=== PATIENT | male | born 1945 | race Caucasian/White ===

== ENCOUNTER 2021-07-25 11:18 | Inpatient (IN) | payer OTHER ==
[~2021-07-25] VITALS: Ht 172.7 cm; Wt 107.4 kg
[2021-07-25] MEDS ORDERED: ONDANSETRON 4 MG (ZOFRAN) ORAL DISSOLVE TAB PO PRN (12:30)
[2021-07-25] MEDS ORDERED: guaiFENesin/CODEINE (ROBITUSSIN AC) 10ML UDC PO PRN (12:30)
[2021-07-25] MEDS ORDERED: MELATONIN 3 MG TABLET PO PRN (12:30)
[2021-07-25] MEDS ORDERED: ACETAMINOPHEN 500 MG TAB (TYLENOL) PO PRN (12:30)
[2021-07-25] MEDS ORDERED: LOPERAMIDE 2 MG (IMODIUM) TABLET PO PRN (12:30)
[2021-07-25] MEDS ORDERED: BISACODYL 10 MG SUPP (DULCOLAX) PR PRN (12:30)
[2021-07-25] MEDS ORDERED: diphenhydrAMINE 25 MG TAB (BENADRYL) PO PRN (12:30)
[2021-07-25] MEDS ORDERED: DOCUSATE SODIUM 100 MG (COLACE) CAP PO PRN (12:30)
[2021-07-25] MEDS ORDERED: LACTULOSE SYRUP 10GM/15ML (ENULOSE) 30ML UDC PO PRN (12:30)
[2021-07-25] MEDS ORDERED: CALCIUM CARBONATE 500 MG (TUMS) TAB.CHEW PO PRN (12:30)
[2021-07-25] MEDS ORDERED: FLEET ENEMA ADULT 1 EA BTL PR PRN (12:30)
[2021-07-25] MEDS ORDERED: ALPRAZolam 0.25 MG (XANAX) TAB PO PRN (12:30)
[2021-07-25] MEDS ORDERED: PHEN30TA45 PO (13:21)
[2021-07-25] MEDS ORDERED: METF-478 PO (13:21)
[2021-07-25] MEDS ORDERED: MELA3TAB39 PO (13:21)
[2021-07-25] MEDS ORDERED: PHEN100C11 PO (13:21)
[2021-07-25] MEDS ORDERED: LATA2.5D19 OU (13:21)
[2021-07-25] MEDS ORDERED: FURO20TA4 PO ×2 (13:21)
[2021-07-25] MEDS ORDERED: BRIM5DRO2 OS (13:21)
[2021-07-25] MEDS ORDERED: LEVO100T PO (13:21)
[2021-07-25] MEDS ORDERED: RT-ALBUINH INH (13:21)
[2021-07-25] MEDS ORDERED: TMSL.4C PO (13:21)
[2021-07-25] MEDS ORDERED: BENZ100C18 PO (13:21)
[2021-07-25] MEDS ORDERED: DULA1.5P2 SQ (13:21)
[2021-07-25] MEDS ORDERED: DIAZ5TAB49 PO (13:21)
[2021-07-25] MEDS ORDERED: LEVE250T5 PO (13:21)
[2021-07-25] MEDS ORDERED: DOCU100C37 PO (13:21)
[2021-07-25] MEDS ORDERED: LACT1WAF PO (13:21)
[2021-07-25] MEDS ORDERED: DEXA6TAB PO (13:21)
[2021-07-25] MEDS ORDERED: ATOR80TA76 PO (13:21)
[2021-07-25] MEDS ORDERED: LISI20TA26 PO (13:21)
[2021-07-25] MEDS ORDERED: CALC-987 PO (13:21)
[2021-07-25] MEDS ORDERED: INSU100V6 SQ (13:21)
[2021-07-25] MEDS ORDERED: ASPI-1238 PO (13:21)
[2021-07-25] MEDS ORDERED: UBID10CA8 PO (13:21)
[2021-07-25] MEDS ORDERED: INSU100V SQ (13:21)
[2021-07-25] MEDS ORDERED: AMLO-251 PO (13:21)
[2021-07-25] MEDS ORDERED: BENZ200C51 PO (13:26)
[2021-07-25] MEDS ORDERED: FAMO20TA5 PO (13:26)
[2021-07-25] MEDS ORDERED: ACETAMINOPHEN 325 MG TABLET PO PRN (13:30)
[2021-07-25] MEDS ORDERED: DIAZEPAM 5 MG (VALIUM) TABLET PO PRN (14:00)
[2021-07-25] MEDS ORDERED: FUROSEMIDE 20 MG (LASIX) TAB PO PRN (14:00)
--- NOTE | 2021-07-25 14:14 | Progress Note ---
BELIA RIVERA 07/25/21 1414: Progress Note Inpatient Rehab Subjective CC: SOB after positive Covid test HPI: On 07/16/21 a 75yo M presented to [facility] ED with a week long history of progressive weakness with cough, subjective fever, SOB, and a fall with a recent positive Covid test and he was vaccinated with two doses prior to his infection. CXR on 07/16 revealed Bibasilar partial atelectasis with no infiltrates, effusions, or pneumothorax. He was on 2L of oxygen to maintain his O2 saturation above 90% and was given Remdesivir, dexamethasone and was admitted to the COVID unit. On 07/23 he was off Covid isolation and throughout his time he reported improvements in his symptoms. On 07/25 he still reports SOB especially on exertion that is much improved, some mucus production that has also improved and he had some Nausea last night. He currently can ambulate with a walker. He lives in a one floor house with three steps, he has a CPAP machine at home in [place] and can get help from his . He has no oxygen at home, and goes to the [facility] for health concerns. PMH: Anxiety, CAD, skin cancer, senile cataract of left eye, COPD, depression, DM, HTN, hyperlipidemia, hypothyrodism, CURT, PVD, stroke, seizure disorder, TIA on left side of body PSH: cataract extraction, heart catheterization, Iridotomy, retinal laser procedure, drain peritonsillar abscess, Cholecystectomy, tonsillectomy Allergies: Fentanyl (hypotension) and Fluoxetine (Hallucination), no food allergies, unknown environmental allergies to patient Meds: see chart SH: Drinks one pot of coffee a day, no ETOH except for on occasion socially, no drug use, has no smoked in 30 years and use to smoke 2 to 3 packs per day for 24 to 25 years. FH: Mother=Thyroid disease, heart disease, DM, HTN, high cholesterol. . Father= Heart disease, high cholesterol, HTN Children= all boys have DM Brother=DM Brother= possible DM Sister= unknown cause of , possibly from smoking related complications ROS: No CP, vomiting. Reports on and off constipation and diarrhea depending on what he eats. Objective General: alert, compliant, good historian. Lungs: Decreased lung sounds, no wheezing or accessory muscle use Psych: Doing very well, looking forward to working with PT and OT so he can go back home. Assessment: Post COVID syndrome HTN Plan: OT and PT Monitor BP and blood sugars KEREN GARCIA DO 07/26/21 0536: Supervisory-Addendum Brief Verification & Attestation Participated in pt care: history, MDM, physical Personally performed: exam, history, MDM, supervision of care Care discussed with: Medical Student Procedures: n/a Results interpretation: Verified all documentation Verification and Attestation of Medical Student E/M Service A medical student performed and documented this service in my presence. I reviewed and verified all information documented by the medical student and made modifications to such information, when appropriate. I personally performed the physical exam and medical decision making. Keren Garcia, Jul 26, 2021,05:36 BELIA RIVERA Jul 25, 2021 14:14 KEREN GARCIA DO Jul 26, 2021 05:36
[2021-07-25] MEDS ORDERED: BENZONATATE 100 MG (TESSALON) CAPSULE PO PRN (14:15)
--- NOTE | 2021-07-25 14:24 | Physical Therapy Evaluation ---
PT Evaluation-General Medical Diagnosis Admission Date Jul 25, 2021 at 12:50 Medical Diagnosis: post covid debility Onset Date: Jul 16, 2021 Therapy Diagnosis Therapy Diagnosis: impaired mobility, strength, endurance, balance Precautions Precautions/Isolations: Fall Prevention, Standard Precautions Referral Physician: Keren Henry DO Reason for Referral: Evaluation/Treatment Medical History Additional Medical History CAD, COPD, CVA, DM, Hypothroidism, Macular Degenertion Reviewed History: Yes Social History Home: Single Level Current Living Status: Spouse Entry Into Home: Stairs With Railing PT Steps Into Home: 3 Prior Prior Level of Function SCALE: Activities may be completed with or without assistive devices. 9-Swtjfkjvcp-uopeiws completes the activity by him/herself with no assistance from a helper. 5-Set-up or Clean-up Assistance-helper sets up or cleans up; patient completes activity. [place] assists only prior to or following the activity. 4-Supervision or Touching Assistance-helper provides verbal cues and/or touching/steadying and/or contact guard assistance as patient completes activity. Assistance may be provided throughout the activity or intermittently. 3-Partial/Moderate Assistance-helper does LESS THAN HALF the effort. [place] lifts, holds or supports trunk or limbs, but provides less than half the effort. 2-Substantial/Maximal Assistance-helper does MORE THAN HALF the effort. [place] lifts or holds trunk or limbs and provides more than half the effort. 9-Ropkkrpzm-twveos does ALL the effort. Patient does none of the effort to complete the activity. Or, the assistance of 2 or more helpers is required for the patient to complete the activity. If activity was not attempted, code reason: 7-Patient Refused. 9-Not Applicable-not attempted and the patient did not perform the activity before the current illness, exacerbation or injury. 10-Not Attempted due to Environmental Limitations-(lack of equipment, weather restraints, etc.). 88-Not Attempted due to Medical Conditions or Safety Concerns. Bed Mobility: 6 Transfers (B,C,W/C): 6 Gait: 6 Stairs: 3 Patient uses a 4 wheeled walker at home, he ambulates independently with it but he states he falls at home fairly often PT Evaluation-Current Subjective Patient in recliner pre tx, agrees to PT, has no complaints of pain. Will be co-treating with OT for part of tx due to poor patient mobility, strength, endurance, balance, coordinate UE and LE during activity, safety and reduce risk of falls. Pt/Family Goals to be independent at home Objective Patient Orientation: Person, Place, Situation ROM/Strength ROM Lower Extremities WNL Strength Lower Extremities LLE (hip flexion 3-/5, knee extension 3+/5, knee flexion 3/5, dorsiflexion 3+/5), RLE (hip flexion 4/5, knee extension 5/5, knee flexion 4/5, dorsiflexion 4/5) Sensory Vision: Blind Totally (right eye) Hearing: Functional Sensation Right Lower Extremit: Intact Sensation Left Lower Extremity: Intact Transfers Roll Left & Right (QC): 6 Sit to Lying (QC): 4 Lying to Sitting/Side of Bed(Q: 4 Sit to Stand (QC): 3 Chair/Zhr-zr-Nawbl Xfer(QC): 4 Toilet Transfer (QC): 3 Car Transfer (QC): 4 Patient performs bed mobility with independence, supine <-> sit with SBA, sit <- > stand min assist, transfers CGA, car transfer CGA. Patient needs cues for hand placement and positioning. Gait Does the Patient Walk?: Yes Mode of Locomotion: Walk Anticipated Mode of Locomotion: Walk Walk 10 feet (QC): 4 Walk 50 ft with 2 Turns(QC): 4 Walk 150 ft (QC): 88 Walking 10ft/uneven surface-QC: 4 Distance: 100', 50' Gait Assistive Device: FWW Comments/Gait Description Patient can ambulate 100' with a rolling walker with CGA (including 50' with at least 2 turns of 90 degrees and 10' over an uneven surface). Patient is unsteady, needs steadying assist, left knee maurice when fatigued. Wheelchair Training Does the Pt Use a Wheelchair?: Yes Distance: 100' Wheel 50 ft with 2 turns (QC): 4 Wheel 150 ft (QC): 88 Type of Wheelchair: Manual SBA Stairs #of Steps: 1 1 Step (curb) (QC): 4 4 Steps (QC): 88 12 Steps (QC): 88 Walking Assistive Device: Walker Patient can go up and down 1 step using a rolling walker with CGA, cues for foot placement and safety. Balance Sitting Static: Good Sitting Dynamic: Fair Standing Static: Poor Standing Dynamic: Poor Picking up an Object (QC): 88 Treatment Bathing and dressing. PT performed bed mobility and transfers, ambulation, stair training, standing and positioning during bathing and dressing, OT performed bathing and dressing, UE positioning and safety during activity. Assessment/Needs Patient in recliner post tx with nurse call, phone, tray, all needs met, set up with lunch. Patient has impaired mobility, strength, endurance, balance. Patient is CGA with transfers and ambulation but needs close guarding due to unsteadiness and left knee buckling with fatigue. Rehab Potential: Fair PT Short Term Goals Short Term Goals Time Frame: Aug 01, 2021 Roll Left & Right: 6 Sit to lyin Lying to sitting on side of be: 5 Sit to stand: 4 Chair/ltp-je-engvs transfer: 4 Walk 10 feet: 4 Walk 50 feet with two turns: 4 Walk 150 feet: 4 PT Half-Way Goals Panel Machine Setter Goals PT Half-Way Goals Time Frame: Aug 15, 2021 Roll Left & Right (QC): 6 Sit to Lying (QC): 6 Lying-Sitting on Side/Bed(QC): 6 Sit to Stand (QC): 5 Chair/Tqk-eh-Fnwwo Xfer(QC): 5 Toilet Transfer (QC): 5 Car Transfer (QC): 5 Does the Patient Walk: Yes Walk 10 feet (QC): 5 Walk 50ft with 2 Turns (QC): 5 Walk 150 ft (QC): 5 Walking 10ft on Uneven Surface: 4 1 Step (curb) (QC): 4 4 Steps (QC): 4 12 Steps (QC): 88 Picking up an Object (QC): 4 Wheel 50 feet with 2 turns (QC: 9 Wheel 150 feet: 9 PT Plan Problem List Problem List: Activity Tolerance, Functional Strength, Safety, Balance, Gait, Transfer, Bed Mobility, ROM Treatment/Plan Treatment Plan: Continue Plan of Care Treatment Plan: Bed Mobility, Education, Functional Activity Adriana, Functional Strength, Group Therapy, Gait, Safety, Therapeutic Exercise, Transfers Treatment Duration: Aug 15, 2021 Frequency: At least 5 of 7 days/Wk (IRF) Estimated Hrs Per Day: 1.5 hours per day Patient and/or Family Agrees t: Yes Safety Risks/Education Patient Education: Gait Training, Transfer Techniques, Steps, Correct Posit ioning, Safety Issues Teaching Recipient: Patient Teaching Methods: Demonstration, Discussion Response to Teaching: Reinforcement Needed Discharge Recommendations Plan Patient will perform bed mobility and transfer training, balance and endurance training, functional strengthening, stair training, gait training, and education, to improve functional mobility and independence at home. Therapy Discharge Recommendati: Home & Family, Post Acute PT Time/GCodes Time In: 1250 Time Out: 1430 Total Billed Treatment Time: 90 Total Billed Treatment 1 visit EVM 10' FA 80' PT eval from [id number], OT eval from [id number], co-treat from [id number] [facility]NIGHT PT Jul 25, 2021 14:24
--- NOTE | 2021-07-25 14:28 | Occupational Therapy Eval ---
OT Evaluation-General/PLF Medical Diagnosis Admission Date Jul 25, 2021 at 12:50 Medical Diagnosis: pneumonia due to Covid 19 Onset Date: Jul 16, 2021 Therapy Diagnosis Therapy Diagnosis: Impaired adls, balance, safety, endurance, strength, vision Precautions Precautions/Isolations: Fall Prevention, Standard Precautions Referral Physician: isac Referral Reason: Evaluation/Treatment Medical History Pertinent Medical History: CAD, COPD, CVA, DM, Hypothroidism, Macular Degenertion Additional Medical History CVA 12/2014, CVA 06/2021, seizure disorder, cataracts, cancer Current History Pt direct admit from [facility] with weakness and pneumonia secondary to covid 19. Pt reports recent stroke just following Covid 19 diagnosis. Per patient and , he receives assist with all adls and requires assistance with tub transfers. reports multiple falls where legs "give out" and requires assistance from neighbors or family to get him off the floor. Pt was using a 4ww prior to admission. He states that he only leaves his home when he has a doctors appointment and will then use a w/c in the community. Pt currently presents with R facial droop, Residual L sided weakness and is blind in R eye. Reviewed History: Yes Social History Home: Single Level Current Living Status: Spouse Entry Into Home: Stairs With Railing Steps Into Home: 3 ADL-Prior Level of Function SCALE: Activities may be completed with or without assistive devices. 9-Fsvhsxlizd-dbulosb completes the activity by him/herself with no assistance from a helper. 5-Set-up or Clean-up Assistance-helper sets up or cleans up; patient completes activity. [place] assists only prior to or following the activity. 4-Supervision or Touching Assistance-helper provides verbal cues and/or touching/steadying and/or contact guard assistance as patient completes activity. Assistance may be provided throughout the activity or intermittently. 3-Partial/Moderate Assistance-helper does LESS THAN HALF the effort. [place] lifts, holds or supports trunk or limbs, but provides less than half the effort. 2-Substantial/Maximal Assistance-helper does MORE THAN HALF the effort. [place] lifts or holds trunk or limbs and provides more than half the effort. 8-Eklwhxipc-ifeizq does ALL the effort. Patient does none of the effort to complete the activity. Or, the assistance of 2 or more helpers is required for the patient to complete the activity. If activity was not attempted, code reason: 7-Patient Refused. 9-Not Applicable-not attempted and the patient did not perform the activity before the current illness, exacerbation or injury. 10-Not Attempted due to Environmental Limitations-(lack of equipment, weather restraints, etc.). 88-Not Attempted due to Medical Conditions or Safety Concerns. Self Care: Needed Some Help Functional Cognition: Needed Some Help DME/Equipment: Bath Bench, Grab Bars, Shower Hose Injection Molding Machine Offbearer, Tub/Shower Drive Self: No OT Current Status Subjective Pt reports wanting to get stronger to reduce burden of care on . Appearance Pt left sitting in chair, all needs within reach. Mental Status/Objective Patient Orientation: Person, Time, Situation Attachments: IV Current Glasses/Contacts: No Hearing Aids: No Hand Dominance: Right Upper Extremity ROM Dex shoulder: 3/4 AROM-baseline Elbow-distally WFL Upper Extremity Coordination Mild incoordination noted, L>R Upper Extremity Strength Residual LUE weakness: 3+/5 RUE: 4/5 throughout Fair manufacturing cost estimator. ADL-Treatment Eating (QC): 5 Oral Hygiene (QC): 3 Shower/Bathe Self (QC): 3 Upper Body Dressing (QC): 10 Lower Body Dressing (QC): 3 On/Off Footwear (QC): 3 Toileting Hygiene (QC): 3 Will be co-treating with PT for part of tx due to poor patient mobility, strength, endurance, balance, safety, coordination, and high fall risk. PT focusing on gait, ambulation, functional transfers, safety, balance, and LE strengthening as OT focused on ADLs, balance, UE coordination, safety, functional transfers, and endurance. Pt is unsteady on feet and can be retropulsive with initial standing. See PT note regarding distance and level of assist for gait. Shower performed; majority completed in sitting. Pt stood only briefly to wash gael area/buttocks with Min a for balance. 1-2 UE support required at all times when standing. Pt unable to sustain standing balance for long periods of time and demonstrates unpredictable knee buckling, especially with fatigue. Cues needed to initiate use of soap and to wash ~20% of body parts as pt easily distracted with conversation. Assist required to reach feet and min a for thoroughness when washing buttocks. Pt sat edge of bench to dress. No clothing currently present, thus new gown donned. reports she will bring in clothing for next session. With extra time/effort, pt was able to thread BLE's into brief with use of cross over method. Min-mod a for balance as he stood to manage brief up to waist with zero UE support. Education/cue to alternate one hand on walker while other manages clothing. CGA-min a to maintain figure 4 position as pt donned dex socks. Pt can be impulsive at times and requires cues for safety. Treatment ideas include instruction on Adaptive Equipment, compensatory s trategies, promoting increased balance, endurance, standing tolerance, UE strength, coordination, and safety with tub transfers. Other Treatments Pt performed multiple functional transfers throughout session with cga-min a. Pt can be unsteady, Retropulsive with initial standing and exhibit unpredictable knee buckling, especially as fatigue worsens. Education OT Patient Education: Correct positioning, Energy conservation, Instructions to caregiver, Modified ADL techniques, Progress toward Goal/Update tx plan, Purpose of tx/functional activities, Reviewed precautions, Rehab process, Safety issues, Transfer techniques, W/C management Teaching Recipient: Patient Teaching Methods: Demonstration, Discussion Response to Teaching: Verbalize Understanding, Reinforcement Needed OT Short Term Goals Short Term Goals Time Frame: Aug 01, 2021 Eatin Oral hygiene: 5 Toileting hygiene: 4 (CGA) Shower/bathe self: 3 Upper body dressin Lower body dressin (CGA) Putting on/taking off footwear: 4 OT Shelter Goals Shelter Goals Time Frame: Aug 11, 2021 Eating (QC): 6 Oral Hygiene (QC): 6 Toileting Hygiene (QC): 4 Shower/Bathe Self (QC): 4 Upper Body Dressing (QC): 4 Lower Body Dressing (QC): 4 On/Off Footwear (QC): 4 1=Demonstrate adherence to instructed precautions during ADL tasks. 2=Patient will verbalize/demonstrate understanding of assistive devices/modifications for ADL. 3=Patient will improve strength/tolerance for activity to enable patient to perform ADL's. OT Education/Plan Problem List/Assessment Assessment: Decreased Activ Tolerance, Decreased Safety Aware, Decreased UE Strength, Impaired Coordination, Impaired Funct Balance, Impaired Self-Care Skills, Restricted Funct UE ROM Discharge Recommendations Plan/Recommendations: Continue POC Therapy Discharge Recommendati: Home & Family, Post Acute OT Comment continue to assess for DME/AE Treatment Plan/Plan of Care Treatment,Training & Education: Yes Patient would benefit from OT for education, treatment and training to promote independence in ADL's, mobility, safety and/or upper extremity function for ADL's. Plan of Care: ADL Retraining, Caregiver Training, Functional Mobility, Group Exercise/Act as Ind, UE Funct Exercise/Act, UE Neuromus Re-Ed/Coord, W/C Management Training Treatment Duration: Aug 11, 2021 Frequency: At least 5 of 7 days/Wk (IRF) Estimated Hrs Per Day: 1.5 hours per day Agreement: Yes Rehab Potential: Fair Time/GCodes Start Time: 13:00 Stop Time: 14:30 Total Time Billed (hr/min): 90 Billed Treatment Time 1 visit EVM 10 min ADL x3 (50 min) FA x 2 (30 min) PT eval from [id number], OT eval from [id number], co-treat from [id number] Arcelia Deleon OT Jul 25, 2021 14:28
[2021-07-25] MEDS: PHENYTOIN 100 MG (DILANTIN) CAP PO SCH ×2 (14:34→20:39)
[2021-07-25] MEDS ORDERED: [UNRECOGNIZED DRUG - REMARK] SQ SCH (15:00)
[2021-07-25] MEDS ORDERED: FLU QUADRIvalent (3YOA+) 60 mcg/0.5 ml 2021-22(AFLURIA) IM ONE (15:00)
[2021-07-25] MEDS: RT-ALBUTEROL SULF 2.5 MG/3 ML PRE-MIX VIAL INH SCH ×2 (16:03→21:15)
[2021-07-25] MEDS: inSUlin ASPART (NovoLOG) 1 UNIT/0.01 ML (CHARGE PER UNIT) SC SCH ×2 (16:44→20:40)
[2021-07-25] MEDS: ENOXAPARIN 40 MG/0.4 ML (LOVENOX) SYR SC SCH (16:44)
[2021-07-25] MEDS: CALCIUM CARB + VIT D 600 MG (CALCARB + D) TAB PO SCH (16:51)
[2021-07-25 20:00] VITALS: BP 163/83
--- NOTE | 2021-07-25 20:02 | PM&R Post Admission Assessment ---
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 He was diagnosed with Covid even after he received both Covid vaccine injections. He does not use oxygen at home and currently he has been weaned off. He is to be completing his Decadron. Family thinks his right facial droop is new and will try to review his records to evalu ate that. 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 Currently he was noted to be weak and debilitated but able to perform the assessments per PT. Subjective CC: SOB after positive Covid test HPI: On 07/16/21 a 75yo M presented to [facility] ED with a week long history of progressive weakness with cough, subjective fever, SOB, and a fall with a recent positive Covid test and he was vaccinated with two doses prior to his infection. CXR on 07/16 revealed Bibasilar partial atelectasis with no infiltrates, effusions, or pneumothorax. He was on 2L of oxygen to maintain his O2 saturation above 90% and was given Remdesivir, dexamethasone and was admitted to the COVID unit. On 07/23 he was off Covid isolation and throughout his time he reported improvements in his symptoms. On 07/25 he still reports SOB especially on exertion that is much improved, some mucus production that has also improved and he had some Nausea last night. He currently can ambulate with a walker. He lives in a one floor house with three steps, he has a CPAP machine at home in [place] and can get help from his . He has no oxygen at home, and goes to the [facility] for [facility] concerns. PMH: Anxiety, CAD, skin cancer, senile cataract of left eye, COPD, depression, DM, HTN, hyperlipidemia, hypothyrodism, CURT, PVD, stroke, seizure disorder, TIA on left side of body PSH: cataract extraction, heart catheterization, Iridotomy, retinal laser procedure, drain peritonsillar abscess, Cholecystectomy, tonsillectomy Allergies: Fentanyl (hypotension) and Fluoxetine (Hallucination), no food allergies, unknown environmental allergies to patient Meds: see chart SH: Drinks one pot of coffee a day, no ETOH except for on occasion socially, no drug use, has no smoked in 30 years and use to smoke 2 to 3 packs per day for 24 to 25 years. FH: Mother=Thyroid disease, heart disease, DM, HTN, high cholesterol. . Father= Heart disease, high cholesterol, HTN Children= all boys have DM Brother=DM Brother= possible DM Sister= unknown cause of , possibly from smoking related complications ROS: No CP, vomiting. Reports on and off constipation and diarrhea depending on what he eats. Objective General: alert, compliant, good historian. Lungs: Decreased lung sounds, no wheezing or accessory muscle use Psych: Doing very well, looking forward to working with PT and OT so he can go back home. Assessment: Post COVID syndrome HTN Plan: OT and PT Monitor BP and blood sugars BELIA RIVERA Past Xpjsqpu-Mwnqth-Fogahm Hx Past Med/Social Hx: Reviewed Nursing Past Med/Soc Hx, Reviewed and Corrections made Patient Social History Marrital Status: Employed/Student: retired Alcohol Use: Denies Use Smoking Status: Former Smoker Past Medical History Cardiac: Chronic Edema/Swelling, High Cholesterol, Hypertension Neurological: Seizure Disorder, Stroke Genitourinary: Benign Prostatic Hyperpl, Renal Failure Gastrointestinal: Gastroesophageal Reflux Musculoskeletal: Arthritis, Chronic Back Pain Endocrine: Diabetes, Insulin dep Psychosocial: Anxiety Family History Reviewed Nursing Family Hx Prior Level of Function Bed Mobility: 6 Transfers: 6 Gait: 6 Stairs: 3 Self Care: Needed Some Help Functional Cognition: Needed Some Help Drive Self: No Current Level of Fuctioning Roll Left to Right: 6 Sit to Lyin Lying to Sitting/Side of Bed: 4 Sit to Stand: 3 Chair/Kza-yd-Gdoqe Xfer: 4 Car Transfer: 4 Does the Patient Walk: Yes Mode of Locomotion: Walk Anticipated Mode of Locomotion: Walk Walk 10 feet: 4 Walk 50 ft with 2 Turns: 4 Walk 150 ft: 88 Walking 10ft on uneven surface: 4 Gait Assistive Device: FWW Does the Pt Use a Wheelchair: Yes Wheelchair Distance: 100' Wheel 50 ft with 2 turns: 4 Wheel 150 ft: 88 Type of Wheelchair: Manual #of Steps: 1 1 Step (curb): 4 4 Steps: 88 Walking Assistive Device: Walker 12 Steps: 88 Picking up an Object: 88 Eatin Oral Hygiene: 3 Shower/Bathe Self: 3 Upper Body Dressin Lower Body Dressin On/Off Footwear: 3 Toileting Hygiene: 3 PM&R Allergy/Meds/Data Review Allergies Coded Allergies: fentanyl (Verified Allergy, Unknown, 07/25/21) fluoxetine (Verified Allergy, Unknown, 07/25/21) Home Medications Scheduled Albuterol Sulfate (Ventolin Hfa), 2 PUFF INH Q6H, (Reported) Amlodipine Besylate (Amlodipine Besylate), 5 MG PO BID, (Reported) Aspirin (Aspirin EC), 81 MG PO DAILY, (Reported) Atorvastatin Calcium (Atorvastatin Calcium), 80 MG PO DAILY, (Reported) Brimonidine Tartrate (Alphagan P), 1 DROP OS BID, (Reported) Calcium Carbonate/Vitamin D3 (Calcium 500-Vit D3 600 Tablet), 1 EACH PO BID, (Reported) Dexamethasone (Dexamethasone), 6 MG PO DAILY, (Reported) Docusate Sodium (Docusate Sodium), 100 MG PO BID, (Reported) Dulaglutide (Trulicity), 1.5 MG SQ WEEK, (Reported) Famotidine (Famotidine), 20 MG PO BID, (Reported) Furosemide (Furosemide), 20 MG PO DAILY, (Reported) Insulin Glargine,Hum.rec.anlog (Lantus), 20 UNIT SQ HS, (Reported) Insulin Lispro (Humalog), UNIT SQ TIDWM, (Reported) Lactobacillus Acidophilus (Acidophilus Lactobacillus), 2 EA PO HS, (Reported) Latanoprost (Xalatan), 1 DROPS OU HS, (Reported) Levetiracetam (Levetiracetam), 250 MG PO BID, (Reported) Levothyroxine Sodium (Synthroid), 100 MCG PO DAILY, (Reported) Lisinopril (Lisinopril), 20 MG PO DAILY, (Reported) Melatonin (Melatonin), 6 MG PO HS, (Reported) Metformin HCl (Metformin HCl ER), 1,000 MG PO BID, (Reported) Phenobarbital (Phenobarbital), 60 MG PO HS, (Reported) Phenytoin Sodium Extended (Phenytoin Sodium Extended), 200 MG PO TID, (Reported) Tamsulosin HCl (Flomax), 0.4 MG PO HS, (Reported) Ubidecarenone (Coenzyme Q10), 10 MG PO DAILY, (Reported) Scheduled PRN Benzonatate (Benzonatate), 200 MG PO TID PRN for COUGH, (Reported) Diazepam (Diazepam), 5 MG PO BID PRN for ANXIETY, (Reported) Furosemide (Furosemide), 20 MG PO 1500 PRN for GAIN >3LB PER DAY, (Reported) Discontinued Medications Benzonatate (Tessalon Perles), 200 MG PO TID PRN for COUGH, (Reported) Discontinued Reason: Prescription changed Current Medications Current Medications Reviewed Laboratory Data Laboratory Tests 07/25/21 15:51: Glucometer 259H Review of Systems Constitutional: see HPI, malaise, weakness EENTM: no symptoms reported Respiratory: dyspnea on exertion Cardiovascular: no symptoms reported Gastrointestinal: no symptoms reported Genitourinary: no symptoms reported Musculoskeletal: back pain, joint pain Skin: no symptoms reported Psychiatric/Neurological: Anxiety, Depressed All Other Systems Reviewed Negative Unless Noted: Yes Physical Exam Physical Exam Vital Signs Vital Signs - First Documented 07/25/21 14:51 O2 Delivery Room Air Capillary Refill : Height, Weight, BMI Height: '" Weight: lbs. oz. kg; 35.10 BMI Method: General Appearance: No Apparent Distress, WD/WN, Chronically ill, Obese Eyes: Bilateral Eye Normal Inspection, Bilateral Eye PERRL HEENT: PERRL/EOMI, Normal ENT Inspection, Pharynx Normal Neck: Full Range of Motion, Normal Inspection, Non Tender, Supple, Carotid Bruit Respiratory: Chest Non Tender, Normal Breath Sounds, No Accessory Muscle Use, No Respiratory Distress, Decreased Breath Sounds Cardiovascular: Regular Rate, Rhythm, No Edema, No Gallop, No JVD, No Murmur, Normal Peripheral Pulses Gastrointestinal: Normal Bowel Sounds, No Organomegaly, No Pulsatile Mass, Non Tender, Soft Back: Normal Inspection, No CVA Tenderness, No Vertebral Tenderness Extremity: Normal Capillary Refill, Normal Inspection, Normal Range of Motion, Non Tender, No Calf Tenderness, No Pedal Edema Neurologic/Psychiatric: Alert, Oriented x3, management engineer II-XII Norm as Tested, Depressed Affect, Motor Weakness (Chronic left-sided hemiparesis 3/5) Skin: Normal Color, Warm/Dry Lymphatic: No Adenopathy PM&R Medical Assessment & Plan REHAB/MEDICAL ASSESSMENT AND PLAN: REHAB IMPAIRMENT GROUP: Post Covid syndrome ETIOLOGIC DIAGNOSIS: Post Covid syndrome The comorbidities that impact the patients function and/or functional outcome by: Chronic left-sided hemiparesis, severe debility, obesity, diabetes REHAB PLAN: The patient is being admitted to our comprehensive inpatient rehabilitation facility and can tolerate the intensity of service consisting of at least: 180 minutes of therapy a day, 5 out of 7 days a week Rehab treatment will consist of: PT and OT will focus on regaining function with ambulatory devices in order to increase stamina and help increase independence in ADLs in order to regain enough function to return home The patient/family has a good understanding of our discharge process and will benefit from an interdisciplinary inpatient rehabilitation program. The patient has potential to make improvement and is in need of at least two of the following multidisciplinary therapies including but not limited to physical, occupational, speech, and prosthetics and orthotics. Additionally the patient will need services from respiratory, nutritional services, wound care, psychology, etc. (Customize this to each patient). Given the patients complex condition and risk of further medical complications, rehabilitation services cannot be safely or effectively provided at a lower level of care such as a halfway facility. BARRIERS TO DISCHARGE: Chronic left sided hemiparesis combined with new debility ESTIMATED LOS: 14 days DISPOSITION: Home RELEVANT CHANGES SINCE PREADMISSION SCREENING: I have compared the patients medical and functional status at the time of the preadmission screening and there are: No changes PROGNOSIS: Good REHABILITATION GOALS: 1. PT and OT will focus on regaining function with ambulatory devices in order to increase stamina and help increase independence in ADLs in order to regain enough function to return home All the above goals were reviewed with the patient and he/she is in agreement. By signing this document, I acknowledge that I have personally performed a full physical examination on this patient within 24 hours of admission to this inpatient rehabilitation facility and have determined the patient to be able to tolerate the above course of treatment at an intensive level for a reasonable period of time. I will be completing a detailed individualized Plan of Care for this patient by day #4 of the patients stay based upon the Preadmission Screen, the Post-Admission Evaluation, and the therapy evaluations. Admission Dx/Comorbidities: (1) Post-COVID syndrome ICD Codes: B94.8 - Sequelae of other specified infectious and parasitic diseases (2) Hypertension ICD Codes: I10 - Essential (primary) hypertension (3) BPH (benign prostatic hyperplasia) ICD Codes: N40.0 - Benign prostatic hyperplasia without lower urinary tract symptoms (4) Diabetes ICD Codes: E11.9 - Type 2 diabetes mellitus without complications (5) History of stroke ICD Codes: Z86.73 - Personal history of transient ischemic attack (TIA), and cerebral infarction without residual deficits Assessment/Plan Assessment and Plan Assess & Plan/Chief Complaint Assessment: Post Covid syndrome Hypoxia Obesity Diabetes Hypertension Hyperlipidemia Prior stroke with left-sided hemiparesis Plan: Supportive care Oxygen supplementation Aggressive therapy HANNA GARCIA DO Jul 25, 2021 20:02
[2021-07-25] MEDS: FAMOTIDINE 20 MG (PEPCID) TABLET PO SCH (20:36)
[2021-07-25] MEDS: PHENobarbital 64.8 MG (1 GRAIN) TAb PO SCH (20:37)
[2021-07-25] MEDS: SENNA W/DOCUSATE (SENOKOT S) TABLET PO SCH (20:37)
[2021-07-25] MEDS: metFORMIN XR 500 MG (GLUCOPHAGE XR) TAB PO SCH (20:37)
[2021-07-25] MEDS: LACTOBACILLUS ACIDOPHILUS (PROBIOTIC) CAPSULE PO SCH (20:37)
[2021-07-25] MEDS: amLODIPine 5 MG (NORVASC) TAB PO SCH (20:38)
[2021-07-25] MEDS: DOCUSATE SODIUM 100 MG (COLACE) CAP PO SCH (20:38)
[2021-07-25] MEDS: MELATONIN 3 MG TABLET PO SCH (20:38)
[2021-07-25] MEDS: TAMSULOSIN 0.4 MG (FLOMAX) CAP PO SCH (20:39)
[2021-07-25] MEDS: BRIMONIDINE 0.2% (ALPHAGAN) OPHTH SOLN 5 ML BTL OS SCH (20:52)
[2021-07-25] MEDS: LATANOPROST 0.005% (XALATAN) OPHTH SOLN 2.5 ML OU SCH (20:53)
[2021-07-25] MEDS: polyethylene glycoL POWDER 17 GM (MIRALAX) PACK PO SCH (20:53)
[2021-07-25] MEDS ORDERED: inSUlin ASPART (NovoLOG) 1 UNIT/0.01 ML (CHARGE PER UNIT) SC SCH (21:00)
[2021-07-26] MEDS: RT-ALBUTEROL SULF 2.5 MG/3 ML PRE-MIX VIAL INH SCH ×4 (02:20→20:57)
[2021-07-26] MEDS: inSUlin ASPART (NovoLOG) 1 UNIT/0.01 ML (CHARGE PER UNIT) SC SCH ×4 (06:06→20:52)
[2021-07-26] MEDS: dexAMETHasone 6 MG TAB (DECADRON) PO SCH (06:08)
[2021-07-26] MEDS: LEVOTHYROXINE 100 MCG (LEVOTHROID) TAB PO SCH (06:08)
[2021-07-26 06:33] LABS: BASOPHILS % (AUTO) 1 % (0-10); EOSINOPHILS # (AUTO) 0.2 10^3/uL (0.0-0.3); EOSINOPHILS % (AUTO) 3 % (0-10); HEMATOCRIT 35 % (40-54); HEMOGLOBIN 11.9 g/dL (13.3-17.7); LYMPHOCYTES # (AUTO) 2.7 10^3/uL (1.0-4.0); LYMPHOCYTES % (AUTO) 35 % (12-44); MEAN CORPUSCULAR HEMOGLOBIN 31 pg (25-34); MEAN CORPUSCULAR HGB CONC 34 g/dL (32-36); MEAN CORPUSCULAR VOLUME 91 fL (80-99); MEAN PLATELET VOLUME 9.1 fL (9.0-12.2); MONOCYTES # (AUTO) 0.7 10^3/uL (0.0-1.0); MONOCYTES % (AUTO) 9 % (0-12); NEUTROPHILS # (AUTO) 3.5 10^3/uL (1.8-7.8); NEUTROPHILS % (AUTO) 46 % (42-75); PLATELET COUNT 280 10^3/uL (130-400); WHITE BLOOD COUNT 7.5 10^3/uL (4.3-11.0)
[2021-07-26 06:47] LABS: ALBUMIN 3.5 GM/DL (3.2-4.5); POTASSIUM 3.9 MMOL/L (3.6-5.0)
[2021-07-26 06:49] LABS: CALCIUM 9.3 MG/DL (8.5-10.1)
[2021-07-26 06:52] LABS: BILIRUBIN,TOTAL 0.2 MG/DL (0.1-1.0)
[2021-07-26 06:53] LABS: CREATININE SERUM 1.1 MG/DL (0.60-1.30)
[2021-07-26 07:25] VITALS: BP 163/75
[2021-07-26] MEDS: FAMOTIDINE 20 MG (PEPCID) TABLET PO SCH ×2 (08:24→21:06)
[2021-07-26] MEDS: PHENYTOIN 100 MG (DILANTIN) CAP PO SCH ×3 (08:25→21:06)
[2021-07-26] MEDS: lisINopril 20 MG (PRINIVIL) TABLET PO SCH (08:25)
[2021-07-26] MEDS: CALCIUM CARB + VIT D 600 MG (CALCARB + D) TAB PO SCH ×2 (08:25→17:07)
[2021-07-26] MEDS: amLODIPine 5 MG (NORVASC) TAB PO SCH ×2 (08:26→21:07)
[2021-07-26] MEDS: FUROSEMIDE 20 MG (LASIX) TAB PO SCH (08:26)
[2021-07-26] MEDS: ASPIRIN E.C. 81 MG (ECOTRIN) TAB PO SCH (08:26)
[2021-07-26] MEDS: metFORMIN XR 500 MG (GLUCOPHAGE XR) TAB PO SCH ×2 (08:26→21:06)
[2021-07-26] MEDS: BRIMONIDINE 0.2% (ALPHAGAN) OPHTH SOLN 5 ML BTL OS SCH ×2 (08:27→21:30)
[2021-07-26] MEDS: DOCUSATE SODIUM 100 MG (COLACE) CAP PO SCH ×2 (09:16→19:11)
[2021-07-26] MEDS: polyethylene glycoL POWDER 17 GM (MIRALAX) PACK PO SCH ×2 (09:17→19:11)
[2021-07-26] MEDS: SENNA W/DOCUSATE (SENOKOT S) TABLET PO SCH ×2 (09:17→19:11)
--- NOTE | 2021-07-26 09:17 | Individualized Plan of Care ---
Individualized Plan of Care Rehab Nursing IPOC Order Admission Date Jul 25, 2021 at 12:50 Current Orders Orders Admission Order(Inpt,Obs,Sdc) (07/25/21 12:20) Vital Signs: Per Unit Policy ( 08,16,00 (07/25/21 12:20) Manager Information-Inpt Rehab Con (07/25/21 12:20) Rehab Nursing Orders-Ipoc (07/25/21 12:20) Physical Therapy Rehab Orders (07/25/21 12:20) Occupational Therapy Rehab Ord (07/25/21 12:20) Speech Therapy Rehab Orders (07/25/21 12:20) Cbc With Automated Diff (07/26/21 06:00) Comprehensive Metabolic Panel (07/26/21 06:00) Precautions (Aru) (07/25/21 12:20) Rehab-Intensity Of Therapy (07/25/21 12:20) Initiate Admission Nursing Pro .admission (07/25/21 12:20) Alprazolam Tablet (Xanax Tablet) (07/25/21 12:30) Calcium Carbonate Chew Tablet (Antacid C (07/25/21 12:30) Diphenhydramine Tablet (Benadryl Tablet) (07/25/21 12:30) Docusate Sodium Capsule (Colace Capsule) (07/25/21 12:30) Bisacodyl Suppository (Dulcolax Supposit (07/25/21 12:30) Lactulose Oral Solution (Enulose Oral So (07/25/21 12:30) Na Phos/Na Biphos Enema (Fleet Enema Pablo (07/25/21 12:30) Guaifenesin/Codeine Syrup (Robitussin Ac (07/25/21 12:30) Loperamide Tablet (Imodium Tablet) (07/25/21 12:30) Enoxaparin Injection (Lovenox Injection) (07/25/21 16:30) Melatonin Tablet (Melatonin Tablet) (07/25/21 12:30) Polyethylene Glycol Powder Pkt (Miralax (07/25/21 21:00) Ondansetron Oral Dissolve Tab (Zofran (07/25/21 12:30) Senna S Tablet (Senokot S Tablet) (07/25/21 21:00) Code/Resuscitation (07/25/21 12:20) Initiate Admission Nursing Pro .admission (07/25/21 12:20) Acetaminophen Tablet (Tylenol Tablet) (07/25/21 12:30) Admission Arrival Bed Request (07/25/21 12:50) Cho 60g/M 0snack (16-2000 Morgan) (07/25/21 Lunch) Acetaminophen Tablet/Caplet (Tylenol T (07/25/21 13:30) Albuterol Pre-Mix Nebs (Rt) (Proventil (07/25/21 15:00) Aspirin Enteric Coated Tablet (Ecotrin T (07/26/21 09:00) Atorvastatin Tablet (Lipitor Tablet) (07/26/21 09:00) Dexamethasone Tablet (Decadron Tablet) (07/26/21 07:00) Diazepam Tablet (Valium Tablet) (07/25/21 14:00) Docusate Sodium Capsule (Colace Capsule) (07/25/21 21:00) Famotidine Tablet (Pepcid Tablet) (07/25/21 21:00) Furosemide Tablet (Lasix Tablet) (07/25/21 14:00) Furosemide Tablet (Lasix Tablet) (07/26/21 09:00) Latanoprost 0.005% Ophth Soln (Xalatan 0 (07/25/21 21:00) Levothyroxine Tablet (Synthroid Tablet) (07/26/21 06:30) Lisinopril Tablet (Zestril Tablet) (07/26/21 09:00) Melatonin Tablet (Melatonin Tablet) (07/25/21 21:00) Metformin Xr Tablet (Glucophage Xr Table (07/25/21 21:00) Phenytoin Capsule (Dilantin Capsule) (07/25/21 14:02) Tamsulosin Capsule (Flomax Capsule) (07/25/21 21:00) Benzonatate Capsule (Tessalon Perles) (07/25/21 14:15) Brimonidine 0.2% Ophth Soln (Alphagan (07/25/21 21:00) Calcium Carbonate W/Vitamin D3 (Calcarb (07/25/21 18:00) (Nf) Dulaglutide (Trulicity) (07/25/21 15:00) Insulin Determir (Per Unit) (Levemir (Pe (07/25/21 21:00) Lactobacillus Acidophilus Cap (Acidophil (07/25/21 21:00) Levetiracetam Tablet (Keppra Tablet) (07/25/21 21:00) Phenobarbital Tablet (Phenobarbital Tabl (07/25/21 21:00) (Nf) Ubidecarenone (Coenzyme Q10) (07/26/21 15:00) Svn Small Volume Nebulizer (07/25/21 13:51) Amlodipine Tablet (Norvasc Tablet) (07/25/21 21:00) Flu Quad (3yoa+) [id number] (Afluria Christian (07/25/21 15:00) Follow-Up Appointment (07/25/21 14:45) Patient Visit (07/25/21 ) Pt Eval Moderate Complexity (07/25/21 ) Functional Activities, Ea 15 (07/25/21 ) Insulin Aspart (Novolog) (Novolog (Charg (07/25/21 21:00) Accucheck Achs ACHS (07/25/21 16:28) Insulin Aspart (Novolog) (Novolog (Charg (07/25/21 16:30) Chest Pa/Lat (2 View) (07/26/21 10:18) Consult Pulmonology (07/26/21 10:19) Patient May Use Own Meds, All (Patient M (07/26/21 14:30) Patient Visit (07/26/21 ) Functional Activities, Ea 15 (07/26/21 ) Exercise Therap, Ea 15 Min (07/26/21 ) Gait Training, Ea 15 Min (07/26/21 ) (Nf) Dulaglutide (Trulicity) (07/26/21 15:00) (Nf) Dulaglutide (Trulicity) (07/26/21 17:00) Rehab Nursing Orders: Ongoing Assess. of Cognitive Status, Ongoing Assess. of Function Status, Bladder Management, Bladder Scan, Bladder Training, Bowel Management, Bowel Training, Disease Management & Educaiton, DVT Prophylaxis, Fall Prevention, Fluid/Electrolyte/Nutrition Mgmt, Infection Prevention, Medication Management & Education, Management of Risks & Complications, Management of Skin Intergrity, Nutrition Management, Pain Management, Patient/Family Support, Safety Management Intensity of Therapy to be met Patient to be seen: Min.3h per day/5 of 7d PT IPOC Problem List: Activity Tolerance, Functional Strength, Safety, Balance, Gait, Transfer, Bed Mobility, ROM Treatment Plan: Continue Plan of Care Bed Mobility, Education, Functional Activity Adriana, Functional Strength, Group Therapy, Gait, Safety, Therapeutic Exercise, Transfers Treatment Duration: Aug 15, 2021 Frequency: At least 5 of 7 days/Wk (IRF) Estimated Hrs Per Day: 1.5 hours per day OT IPOC Problems: Decreased Activ Tolerance, Decreased Safety Aware, Decreased UE Strength, Impaired Coordination, Impaired Funct Balance, Impaired Self-Care Skills, Restricted Funct UE ROM OT Treatment, Training and Edu: Yes Plan of Care: ADL Retraining, Caregiver Training, Functional Mobility, Group Exercise/Act as Ind, UE Funct Exercise/Act, UE Neuromus Re-Ed/Coord, W/C Management Training Treatment Duration: Aug 11, 2021 Frequency: At least 5 of 7 days/Wk (IRF) Estimated Hrs Per Day: 1.[address] IPOC Speech Therapy Treatment Plan: Discontinue ST Treatment Duration: Jul 26, 2021 Frequency: Modified Program (IRF) Estimated Hrs Per Day: Other Manager Information/Case Mgmt Manager Information/Case Managemen: Discharge Planning Dietitian/Decorator Lighting Fixtures Dietitian/Decorator Lighting Fixtures to monitor nutritional status and make changes and/or recommendations as needed and work with speech pathology on dietary upgrades as the occur. Physician IPOC Medical Issues being managed closely and that require the 24 hour availability of a physician: Recent Covid with history of stroke with left-sided hemiparesis with generalized weakness and need for monitoring hypoxia for respiratory decompensation Medical Issues: Bowel/Bladder Function, DVT Prophylaxis, Falls Precautions, Fluid/Electrolyte/Nutrition Balance, Infection Protection, Pain Management Brief Synthesis of Preadmission Screen, Post-Admission Evaluation, and Therapy Evaluations: PT and OT will focus on regaining function with assistive devices in order to increase ADL independence to return home to independent living Medical Prognosis: Good Anticipated Length of Stay: 10 days HANNA GARCIA DO Jul 26, 2021 09:17
--- NOTE | 2021-07-26 09:17 | PM&R Progress Note ---
Subjective HPI/CC On Admission Date Seen by Provider: Jul 26, 2021 Time Seen by Provider: 09:20 Subjective/Events-last exam 07/26/2021: No major issues Declines wearing CPAP Has some PTSD noted during conversation Incontinent of bowel and bladder at times We will discontinue the Hep-Lock Trulicity will be brought in by his today Finishing up with Decadron Review of Systems General: Fatigue Pulmonary: Dyspnea Objective Exam Vital Signs Vital Signs Date Time Temp Pulse Resp B/P (MAP) Pulse Ox O2 Delivery O2 Flow Rate FiO2 07/27/21 02:27 92 Room Air 07/26/21 20:48 36.6 79 20 131/63 (85) Capillary Refill : General Appearance: No Apparent Distress, WD/WN, Chronically ill, Obese HEENT: PERRL/EOMI, Normal ENT Inspection, Pharynx Normal Neck: Full Range of Motion, Normal Inspection, Non Tender, Supple, Carotid Bruit Respiratory: Chest Non Tender, Normal Breath Sounds, No Accessory Muscle Use, No Respiratory Distress, Decreased Breath Sounds Cardiovascular: Regular Rate, Rhythm, No Edema, No Gallop, No JVD, No Murmur, Normal Peripheral Pulses Gastrointestinal: Normal Bowel Sounds, No Organomegaly, No Pulsatile Mass, Non Tender, Soft Back: Normal Inspection, No CVA Tenderness, No Vertebral Tenderness Extremity: Normal Capillary Refill, Normal Inspection, Normal Range of Motion, Non Tender, No Calf Tenderness, No Pedal Edema Neurologic/Psychiatric: Alert, Oriented x3, head gauge unit operator II-XII Norm as Tested, Depressed Affect, Motor Weakness (Chronic left-sided hemiparesis 3/5) Skin: Normal Color, Warm/Dry Lymphatic: No Adenopathy Results/Procedures Lab Laboratory Tests 07/26/21 06:25 Patient resulted labs reviewed. FIM Transfers Therapy Code Descriptions/Definitions Functional Carbon Measure: 0=Not Assessed/NA 4=Minimal Assistance 1=Total Assistance 5=Supervision or Setup 2=Maximal Assistance 6=Modified Carbon 3=Moderate Assistance 7=Complete IndependenceSCALE: Activities may be completed with or without assistive devices. 6-Mjdnmksupr-cdfwujl completes the activity by him/herself with no assistance from a helper. 5-Set-up or Clean-up Assistance-helper sets up or cleans up; patient completes activity. [place] assists only prior to or following the activity. 4-Supervision or Touching Assistance-helper provides verbal cues and/or touching/steadying and/or contact guard assistance as patient completes activity. Assistance may be provided throughout the activity or intermittently. 3-Partial/Moderate Assistance-helper does LESS THAN HALF the effort. [place] lifts, holds or supports trunk or limbs, but provides less than half the effort. 2-Substantial/Maximal Assistance-helper does MORE THAN HALF the effort. [place] lifts or holds trunk or limbs and provides more than half the effort. 4-Lfdijdqnm-laxlnw does ALL the effort. Patient does none of the effort to complete the activity. Or, the assistance of 2 or more helpers is required for the patient to complete the activity. If activity was not attempted, code reason: 7-Patient Refused. 9-Not Applicable-not attempted and the patient did not perform the activity before the current illness, exacerbation or injury. 10-Not Attempted due to Environmental Limitations-(lack of equipment, weather restraints, etc.). 88-Not Attempted due to Medical Conditions or Safety Concerns. Roll Left to Right (QC): 6 Sit to Lying (QC): 4 Sit to Stand (QC): 3 Chair/Vmd-vd-Hqxpa Xfer(QC): 4 Car Transfer (QC): 4 Gait Training Does the Patient Walk?: Yes Walk 10 feet (QC): 4 Walk 50 ft with 2 Turns(QC): 4 Walk 150 ft (QC): 88 Walking 10ft/uneven surface-QC: 4 Gait Assistive Device: FWW Wheelchair Training Does the Pt Use a Wheelchair?: Yes Distance: 100' Wheel 50 ft with 2 turns (QC): 4 Wheel 150 ft (QC): 88 Type of Wheelchair: Manual Stair Training #of Steps: 1 1 Step (curb) (QC): 4 4 Steps (QC): 88 12 Steps (QC): 88 Balance Picking up an Object (QC): 88 ADL-Treatment Eating (QC): 5 Oral Hygiene (QC): 3 Shower/Bathe Self (QC): 3 Upper Body Dressing (QC): 10 Lower Body Dressing (QC): 3 On/Off Footwear (QC): 3 Toileting Hygiene (QC): 3 Assessment/Plan Assessment and Plan Assess & Plan/Chief Complaint Assessment: Post Covid syndrome Hypoxia Obesity Diabetes Hypertension Hyperlipidemia Prior stroke with left-sided hemiparesis Plan: Supportive care Oxygen supplementation Aggressive therapy 07/26/2021: Continue supportive care Monitor for hypoxia (1) Post-COVID syndrome (2) Hypertension (3) BPH (benign prostatic hyperplasia) (4) Diabetes (5) History of stroke HANNA GARCIA DO Jul 26, 2021 09:17
--- NOTE | 2021-07-26 09:27 | Physical Therapy Daily Note ---
PT Daily Note-Current Subjective Patient in recliner pre tx, agrees to PT, has no complaints of pain. Patient would like to use the restroom before going out of the room. Appearance Patient in recliner post tx with nurse call, phone, tray, all needs met. Mental Status Patient Orientation: Person, Place, Situation Transfers SCALE: Activities may be completed with or without assistive devices. 0-Aljjfwgztf-wkjzepd completes the activity by him/herself with no assistance from a helper. 5-Set-up or Clean-up Assistance-helper sets up or cleans up; patient completes activity. [place] assists only prior to or following the activity. 4-Supervision or Touching Assistance-helper provides verbal cues and/or touching/steadying and/or contact guard assistance as patient completes activity. Assistance may be provided throughout the activity or intermittently. 3-Partial/Moderate Assistance-helper does LESS THAN HALF the effort. [place] lifts, holds or supports trunk or limbs, but provides less than half the effort. 2-Substantial/Maximal Assistance-helper does MORE THAN HALF the effort. [place] lifts or holds trunk or limbs and provides more than half the effort. 6-Bkviddoto-tmbkrd does ALL the effort. Patient does none of the effort to complete the activity. Or, the assistance of 2 or more helpers is required for the patient to complete the activity. If activity was not attempted, code reason: 7-Patient Refused. 9-Not Applicable-not attempted and the patient did not perform the activity before the current illness, exacerbation or injury. 10-Not Attempted due to Environmental Limitations-(lack of equipment, weather restraints, etc.). 88-Not Attempted due to Medical Conditions or Safety Concerns. Sit to Stand (QC): 4 Chair/Mdq-nz-Emidr Xfer(QC): 4 Patient ambulated to the restroom but couldn't quite make it to the toilet before having a huge BM, uses the toilet but needs clothes changed and he needs to be cleaned. Patient is dependent for all of this. Gait Training Distance: 40', 80' Walk 10 feet (QC): 4 Gait Persons Needed: 1 Gait Assistive Device: FWW slow ambulation, has unsteady gait, left knee buckling with fatigue Wheelchair Training Does the Pt Use a Wheelchair?: Yes Wheel 50 ft with 2 turns (QC): 4 Type of Wheelchair: Manual 120'x2 Treatments toileting, transfers, ambulation, WC mobility, dressing and cleaning Assessment Current Status: Fair Progress improved endurance with ambulation PT Short Term Goals Short Term Goals Time Frame: Aug 01, 2021 Roll Left & Right: 6 Sit to lyin Lying to sitting on side of be: 5 Sit to stand: 4 Chair/qjh-nf-fkean transfer: 4 Walk 10 feet: 4 Walk 50 feet with two turns: 4 Walk 150 feet: 4 PT Assisted Goals Physical Medicine Physician Goals PT Assisted Goals Time Frame: Aug 15, 2021 Roll Left & Right (QC): 6 Sit to Lying (QC): 6 Lying-Sitting on Side/Bed(QC): 6 Sit to Stand (QC): 5 Chair/Qlm-bw-Oesvw Xfer(QC): 5 Toilet Transfer (QC): 5 Car Transfer (QC): 5 Does the Patient Walk: Yes Walk 10 feet (QC): 5 Walk 50ft with 2 Turns (QC): 5 Walk 150 ft (QC): 5 Walking 10ft on Uneven Surface: 4 1 Step (curb) (QC): 4 4 Steps (QC): 4 12 Steps (QC): 88 Picking up an Object (QC): 4 Wheel 50 feet with 2 turns (QC: 9 Wheel 150 feet: 9 PT Plan Problem List Problem List: Activity Tolerance, Functional Strength, Safety, Balance, Gait, Transfer, Bed Mobility, ROM Treatment/Plan Treatment Plan: Continue Plan of Care Treatment Plan: Bed Mobility, Education, Functional Activity Adriana, Functional Strength, Group Therapy, Gait, Safety, Therapeutic Exercise, Transfers Treatment Duration: Aug 15, 2021 Frequency: At least 5 of 7 days/Wk (IRF) Estimated Hrs Per Day: 1.5 hours per day Patient and/or Family Agrees t: Yes Safety Risks/Education Patient Education: Gait Training, Transfer Techniques, Correct Positioning, W/C Management, Safety Issues Teaching Recipient: Patient Teaching Methods: Demonstration, Discussion Response to Teaching: Reinforcement Needed Time/GCodes Time In: 829 Time Out: 929 Total Billed Treatment Time: 60 Total Billed Treatment 1 visit FA 60' VA KNIHGT PT Jul 26, 2021 09:27
--- NOTE | 2021-07-26 11:01 | Occupational Ther Daily Note ---
OT Current Status-Daily Note Subjective Pt denies pain, agreeable to treatment. Appearance Pt left unit with staff for x-ray. Mental Status/Objective Patient Orientation: Person ADL-Treatment Therapy Code Descriptions/Definitions Functional [place] Measure: 0=Not Assessed/NA 4=Minimal Assistance 1=Total Assistance 5=Supervision or Setup 2=Maximal Assistance 6=Modified [place] 3=Moderate Assistance 7=Complete IndependenceSCALE: Activities may be completed with or without assistive devices. 9-Ojndvjplxr-vxytwyj completes the activity by him/herself with no assistance from a helper. 5-Set-up or Clean-up Assistance-helper sets up or cleans up; patient completes activity. [place] assists only prior to or following the activity. 4-Supervision or Touching Assistance-helper provides verbal cues and/or jacob duy/steadying and/or contact guard assistance as patient completes activity. Assistance may be provided throughout the activity or intermittently. 3-Partial/Moderate Assistance-helper does LESS THAN HALF the effort. [place] lifts, holds or supports trunk or limbs, but provides less than half the effort. 2-Substantial/Maximal Assistance-helper does MORE THAN HALF the effort. [place] lifts or holds trunk or limbs and provides more than half the effort. 8-Kbazxviye-dvenyy does ALL the effort. Patient does none of the effort to complete the activity. Or, the assistance of 2 or more helpers is required for the patient to complete the activity. If activity was not attempted, code reason: 7-Patient Refused. 9-Not Applicable-not attempted and the patient did not perform the activity before the current illness, exacerbation or injury. 10-Not Attempted due to Environmental Limitations-(lack of equipment, weather restraints, etc.). 88-Not Attempted due to Medical Conditions or Safety Concerns. Oral Hygiene (QC): 4 Bathing Location: L Arm, R Arm, L Upper Leg, R Upper Leg, L Lower Leg (inclu ding foot), R Lower Leg (including foot), Chest, Abdomen, Buttocks, Perineal Area Shower/Bathe Self (QC): 3 Upper Body Dressing (QC): 4 Lower Body Dressing (QC): 3 On/Off Footwear: 3 Toileting Hygiene (QC): 3 Toilet Transfer (QC): 3 Pt reports major blowout of bowels earlier in am. Requests shower. Bathing task performed; majority completed in sitting. Pt continues to be distracted with conversation and requires cues on attention back to task as well as initiating use of soap when washing body. He was able to wash Left foot with use of cross over method, requires UE's to lift and cross. Intermittent cga-min a for balance. Discussed use of LHS for improved safety and energy conservation, yet pt wants to continue figure 4 method in order to maintain hip flexibility. This is okay at this time, yet if pt continues to demonstrate poor safety with balance, he may require adaptive equipment. Pt able to reach R ankle, but requires assist to wash R foot due to weakness/fatigue and inability to lift foot this date. Min a for balance as he stood to wash gael area/buttocks. Poor standing tolerance and often requires multiple stands before completion of task. Min a for thoroughness to wash buttocks. He sat on bench to don clothing. Extra time to don shirt, but no physical assist needed. Assist to thread RLE into brief/shorts and don right sock due to same reason noted previously. Reminder/cues on alternating hand on grab bar when managing clothing over hips with Min a for steadying. He sat in w/c to brush teeth with set up assist. Education OT Patient Education: Correct positioning, Energy conservation, Modified ADL techniques, Progress toward Goal/Update tx plan, Purpose of tx/functional activities, Reviewed precautions, Rehab process, Safety issues, Transfer techniques, Use of adapted equipment Teaching Recipient: Patient Teaching Methods: Demonstration, Discussion Response to Teaching: Verbalize Understanding, Return Demonstration, Reinforcement Needed OT Short Term Goals Short Term Goals Time Frame: Aug 01, 2021 Eatin Oral hygiene: 5 Toileting hygiene: 4 (CGA) Shower/bathe self: 3 Upper body dressin Lower body dressin (CGA) Putting on/taking off footwear: 4 OT Snf Goals Snf Goals Time Frame: Aug 11, 2021 Eating (QC): 6 Oral Hygiene (QC): 6 Toileting Hygiene (QC): 4 Shower/Bathe Self (QC): 4 Upper Body Dressing (QC): 4 Lower Body Dressing (QC): 4 On/Off Footwear (QC): 4 1=Demonstrate adherence to instructed precautions during ADL tasks. 2=Patient will verbalize/demonstrate understanding of assistive devices/mo difications for ADL. 3=Patient will improve strength/tolerance for activity to enable patient to perform ADL's. OT Education/Plan Problem List/Assessment Assessment: Decreased Activ Tolerance, Decreased Safety Aware, Decreased UE Strength, Impaired Cognition, Impaired Coordination, Impaired Funct Balance, Impaired Self-Care Skills Discharge Recommendations Plan/Recommendations: Continue POC Treatment Plan/Plan of Care Treatment,Training & Education: Yes Patient would benefit from OT for education, treatment and training to promote independence in ADL's, mobility, safety and/or upper extremity function for ADL's. Plan of Care: ADL Retraining, Caregiver Training, Functional Mobility, Group Exercise/Act as Ind, UE Funct Exercise/Act, UE Neuromus Re-Ed/Coord, W/C Management Training Treatment Duration: Aug 11, 2021 Frequency: At least 5 of 7 days/Wk (IRF) Estimated Hrs Per Day: 1.5 hours per day Agreement: Yes Rehab Potential: Fair Time/GCodes Start Time: 09:30 Stop Time: 11:30 Total Time Billed (hr/min): 90 Billed Treatment Time 1 visit, ADLx6 Pt seen from [id number] (80 min) and from [id number] (10 min). Session interrupted due to pt leaving floor for x-ray. Arcelia Deleon OT Jul 26, 2021 11:00
--- NOTE | 2021-07-26 13:03 | Diagnostic Imaging Report ---
INDICATION: Lower respiratory infection. EXAMINATION: PA and lateral chest. FINDINGS: There is some opaque material dispersed over the right side of the chest. This appears to be outside the thoracic cage. Heart size and pulmonary vascularity are normal. Lungs are clear. There are no effusions or pneumothoraces. IMPRESSION: No acute abnormalities in the chest. Dictated by: Dictated on workstation # [id number]
--- NOTE | 2021-07-26 14:14 | Physical Therapy Daily Note ---
PT Daily Note-Current Subjective Patient in recliner pre tx, agrees to PT, has no complaints of pain. Appearance Patient in recliner post tx with nurse call, phone, tray, all needs met. Mental Status Patient Orientation: Person, Place, Situation Transfers SCALE: Activities may be completed with or without assistive devices. 6-Uzqfhnrzti-tpxxeop completes the activity by him/herself with no assistance from a helper. 5-Set-up or Clean-up Assistance-helper sets up or cleans up; patient completes activity. [place] assists only prior to or following the activity. 4-Supervision or Touching Assistance-helper provides verbal cues and/or jacob duy/steadying and/or contact guard assistance as patient completes activity. Assistance may be provided throughout the activity or intermittently. 3-Partial/Moderate Assistance-helper does LESS THAN HALF the effort. [place] lifts, holds or supports trunk or limbs, but provides less than half the effort. 2-Substantial/Maximal Assistance-helper does MORE THAN HALF the effort. [place] lifts or holds trunk or limbs and provides more than half the effort. 3-Nguakbglx-qzecas does ALL the effort. Patient does none of the effort to complete the activity. Or, the assistance of 2 or more helpers is required for the patient to complete the activity. If activity was not attempted, code reason: 7-Patient Refused. 9-Not Applicable-not attempted and the patient did not perform the activity before the current illness, exacerbation or injury. 10-Not Attempted due to Environmental Limitations-(lack of equipment, weather restraints, etc.). 88-Not Attempted due to Medical Conditions or Safety Concerns. Sit to Stand (QC): 4 Chair/Bon-yh-Cicsu Xfer(QC): 4 CGA, cues for hand placement and safety Gait Training Distance: 120'x2 Walk 10 feet (QC): 4 Walk 50 ft with 2 Turns(QC): 4 Gait Persons Needed: 1 Gait Assistive Device: FWW slow but steady ambulation, CGA, no knee buckling Exercises NuStep Minutes: 10 NuStep Workload: 5 Treatments transfers, ambulation, functional strengthening Assessment Current Status: Fair Progress improved balance during ambulation PT Short Term Goals Short Term Goals Time Frame: Aug 01, 2021 Roll Left & Right: 6 Sit to lyin Lying to sitting on side of be: 5 Sit to stand: 4 Chair/saa-of-ffxgg transfer: 4 Walk 10 feet: 4 Walk 50 feet with two turns: 4 Walk 150 feet: 4 PT Ticket Collector Or Usher Goals Long-Term Goals PT Long-Term Goals Time Frame: Aug 15, 2021 Roll Left & Right (QC): 6 Sit to Lying (QC): 6 Lying-Sitting on Side/Bed(QC): 6 Sit to Stand (QC): 5 Chair/Qxm-dx-Sptbw Xfer(QC): 5 Toilet Transfer (QC): 5 Car Transfer (QC): 5 Does the Patient Walk: Yes Walk 10 feet (QC): 5 Walk 50ft with 2 Turns (QC): 5 Walk 150 ft (QC): 5 Walking 10ft on Uneven Surface: 4 1 Step (curb) (QC): 4 4 Steps (QC): 4 12 Steps (QC): 88 Picking up an Object (QC): 4 Wheel 50 feet with 2 turns (QC: 9 Wheel 150 feet: 9 PT Plan Problem List Problem List: Activity Tolerance, Functional Strength, Safety, Balance, Gait, Transfer, Bed Mobility, ROM Treatment/Plan Treatment Plan: Continue Plan of Care Treatment Plan: Bed Mobility, Education, Functional Activity Adriana, Functional Strength, Group Therapy, Gait, Safety, Therapeutic Exercise, Transfers Treatment Duration: Aug 15, 2021 Frequency: At least 5 of 7 days/Wk (IRF) Estimated Hrs Per Day: 1.5 hours per day Patient and/or Family Agrees t: Yes Safety Risks/Education Patient Education: Gait Training, Transfer Techniques, Correct Positioning, Safety Issues Teaching Recipient: Patient Teaching Methods: Demonstration, Discussion Response to Teaching: Reinforcement Needed Time/GCodes Time In: 1330 Time Out: 1400 Total Billed Treatment Time: 30 Total Billed Treatment 1 visit EX 10' GT 20' VA KNIGHT PT Jul 26, 2021 14:14
[2021-07-26] MEDS ORDERED: PATIENT MAY USE OWN MEDS, ALL MC SCH (14:30)
[2021-07-26] MEDS ORDERED: [UNRECOGNIZED DRUG - REMARK] SQ SCH (15:00)
[2021-07-26] MEDS: [UNRECOGNIZED DRUG - REMARK] PO SCH (17:07)
[2021-07-26] MEDS: ENOXAPARIN 40 MG/0.4 ML (LOVENOX) SYR SC SCH (17:07)
[2021-07-26] MEDS: [UNRECOGNIZED DRUG - REMARK] SQ SCH (17:08)
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
[2021-07-26 20:48] VITALS: BP 131/63
[2021-07-26] MEDS: LACTOBACILLUS ACIDOPHILUS (PROBIOTIC) CAPSULE PO SCH (21:06)
[2021-07-26] MEDS: TAMSULOSIN 0.4 MG (FLOMAX) CAP PO SCH (21:06)
[2021-07-26] MEDS: MELATONIN 3 MG TABLET PO SCH (21:07)
[2021-07-26] MEDS: PHENobarbital 64.8 MG (1 GRAIN) TAb PO SCH (21:08)
[2021-07-26] MEDS: LATANOPROST 0.005% (XALATAN) OPHTH SOLN 2.5 ML OU SCH (21:30)
[2021-07-27] MEDS: RT-ALBUTEROL SULF 2.5 MG/3 ML PRE-MIX VIAL INH SCH ×2 (02:27→07:25)
[2021-07-27] MEDS: inSUlin ASPART (NovoLOG) 1 UNIT/0.01 ML (CHARGE PER UNIT) SC SCH ×4 (05:48→21:00)
[2021-07-27] MEDS: dexAMETHasone 6 MG TAB (DECADRON) PO SCH (05:59)
[2021-07-27] MEDS: LEVOTHYROXINE 100 MCG (LEVOTHROID) TAB PO SCH (05:59)
[2021-07-27 07:37] VITALS: BP 146/67
[2021-07-27] MEDS: CALCIUM CARB + VIT D 600 MG (CALCARB + D) TAB PO SCH ×2 (07:38→16:57)
[2021-07-27] MEDS: ASPIRIN E.C. 81 MG (ECOTRIN) TAB PO SCH (07:38)
[2021-07-27] MEDS: metFORMIN XR 500 MG (GLUCOPHAGE XR) TAB PO SCH ×2 (07:38→20:57)
[2021-07-27] MEDS: FAMOTIDINE 20 MG (PEPCID) TABLET PO SCH ×2 (07:38→20:58)
[2021-07-27] MEDS: lisINopril 20 MG (PRINIVIL) TABLET PO SCH (07:39)
[2021-07-27] MEDS: PHENYTOIN 100 MG (DILANTIN) CAP PO SCH ×3 (07:39→20:58)
[2021-07-27] MEDS: FUROSEMIDE 20 MG (LASIX) TAB PO SCH (07:39)
[2021-07-27] MEDS: amLODIPine 5 MG (NORVASC) TAB PO SCH ×2 (07:40→20:58)
[2021-07-27] MEDS: [UNRECOGNIZED DRUG - REMARK] PO SCH (07:47)
[2021-07-27] MEDS: BRIMONIDINE 0.2% (ALPHAGAN) OPHTH SOLN 5 ML BTL OS SCH ×2 (07:47→20:59)
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
--- NOTE | 2021-07-27 10:34 | PM&R Progress Note ---
Subjective HPI/CC On Admission Date Seen by Provider: Jul 27, 2021 Time Seen by Provider: 10:45 Subjective/Events-last exam 07/27/2021: Patient doing really well Pulmonary consult reviewed and I conferred with the physician who recommended restarting CPAP Bowels moved today Incontinent of bowel and bladder at times but that is a chronic issue since stroke 07/26/2021: No major issues Declines wearing CPAP Has some PTSD noted during conversation Incontinent of bowel and bladder at times We will discontinue the Hep-Lock Trulicity will be brought in by his today Finishing up with Decadron Review of Systems General: Fatigue, Malaise Pulmonary: Dyspnea Gastrointestinal: Other (Fecal incontinence) Genitourinary: Incontinence Neurological: Weakness, Incoordination Objective Exam Vital Signs Vital Signs Date Time Temp Pulse Resp B/P (MAP) Pulse Ox O2 Delivery O2 Flow Rate FiO2 07/27/21 21:00 95 Room Air 07/27/21 20:00 36.8 76 21 152/70 (97) Capillary Refill : General Appearance: No Apparent Distress, WD/WN, Chronically ill, Obese HEENT: PERRL/EOMI, Normal ENT Inspection, Pharynx Normal Neck: Full Range of Motion, Normal Inspection, Non Tender, Supple, Carotid Bruit Respiratory: Chest Non Tender, Normal Breath Sounds, No Accessory Muscle Use, No Respiratory Distress, Decreased Breath Sounds Cardiovascular: Regular Rate, Rhythm, No Edema, No Gallop, No JVD, No Murmur, Normal Peripheral Pulses Gastrointestinal: Normal Bowel Sounds, No Organomegaly, No Pulsatile Mass, Non Tender, Soft Back: Normal Inspection, No CVA Tenderness, No Vertebral Tenderness Extremity: Normal Capillary Refill, Normal Inspection, Normal Range of Motion, Non Tender, No Calf Tenderness, No Pedal Edema Neurologic/Psychiatric: Alert, Oriented x3, reject opener and filler II-XII Norm as 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 FIM Transfers Therapy Code Descriptions/Definitions Functional [place] Measure: 0=Not Assessed/NA 4=Minimal Assistance 1=Total Assistance 5=Supervision or Setup 2=Maximal Assistance 6=Modified [place] 3=Moderate Assistance 7=Complete IndependenceSCALE: Activities may be completed with or without assistive devices. 6-Nvhwvkqgce-fitiwue completes the activity by him/herself with no assistance from a helper. 5-Set-up or Clean-up Assistance-helper sets up or cleans up; patient completes activity. [place] assists only prior to or following the activity. 4-Supervision or Touching Assistance-helper provides verbal cues and/or touching/steadying and/or contact guard assistance as patient completes activity. Assistance may be provided throughout the activity or intermittently. 3-Partial/Moderate Assistance-helper does LESS THAN HALF the effort. [place] lifts, holds or supports trunk or limbs, but provides less than half the effort. 2-Substantial/Maximal Assistance-helper does MORE THAN HALF the effort. [place] lifts or holds trunk or limbs and provides more than half the effort. 9-Lfsvdmzvz-lkvvgn does ALL the effort. Patient does none of the effort to complete the activity. Or, the assistance of 2 or more helpers is required for the patient to complete the activity. If activity was not attempted, code reason: 7-Patient Refused. 9-Not Applicable-not attempted and the patient did not perform the activity before the current illness, exacerbation or injury. 10-Not Attempted due to Environmental Limitations-(lack of equipment, weather restraints, etc.). 88-Not Attempted due to Medical Conditions or Safety Concerns. Roll Left to Right (QC): 6 Sit to Lying (QC): 4 Sit to Stand (QC): 4 Chair/Wxx-lx-Klxlm Xfer(QC): 4 Car Transfer (QC): 4 Gait Training Does the Patient Walk?: Yes Distance: 120'x2 Walk 10 feet (QC): 4 Walk 50 ft with 2 Turns(QC): 4 Walk 150 ft (QC): 88 Walking 10ft/uneven surface-QC: 4 Gait Persons Needed: 1 Gait Assistive Device: FWW Wheelchair Training Does the Pt Use a Wheelchair?: Yes Distance: 100' Wheel 50 ft with 2 turns (QC): 4 Wheel 150 ft (QC): 88 Type of Wheelchair: Manual Stair Training #of Steps: 1 1 Step (curb) (QC): 4 4 Steps (QC): 88 12 Steps (QC): 88 Balance Picking up an Object (QC): 88 ADL-Treatment Eating (QC): 5 Oral Hygiene (QC): 4 Bathing Location: L Arm, R Arm, L Upper Leg, R Upper Leg, L Lower Leg (including foot), R Lower Leg (including foot), Chest, Abdomen, Buttocks, Perineal Area Shower/Bathe Self (QC): 3 Upper Body Dressing (QC): 4 Lower Body Dressing (QC): 3 On/Off Footwear (QC): 3 Toileting Hygiene (QC): 3 Toilet Transfer (QC): 3 Assessment/Plan Assessment and Plan Assess & Plan/Chief Complaint Assessment: Post Covid syndrome Hypoxia Obesity Diabetes Hypertension Hyperlipidemia Prior stroke with left-sided hemiparesis Plan: Supportive care Oxygen supplementation Aggressive therapy 07/26/2021: Continue supportive care Monitor for hypoxia 07/27/2021: Pulmonary consult appreciated Monitor incontinence Maintain aggressive therapy (1) Post-COVID syndrome (2) Hypertension (3) BPH (benign prostatic hyperplasia) (4) Diabetes (5) History of stroke HANNA GARCIA DO Jul 27, 2021 10:33
--- NOTE | 2021-07-27 11:12 | Occupational Ther Daily Note ---
OT Current Status-Daily Note Subjective Pt pleasant, agreeable to treatment. Appearance Pt left sitting in chair, all needs met. Mental Status/Objective Patient Orientation: Person ADL-Treatment Therapy Code Descriptions/Definitions Functional [place] Measure: 0=Not Assessed/NA 4=Minimal Assistance 1=Total Assistance 5=Supervision or Setup 2=Maximal Assistance 6=Modified [place] 3=Moderate Assistance 7=Complete IndependenceSCALE: Activities may be completed with or without assistive devices. 3-Qjnubgfrlq-obfiwis completes the activity by him/herself with no assistance from a helper. 5-Set-up or Clean-up Assistance-helper sets up or cleans up; patient completes activity. [place] assists only prior to or following the activity. 4-Supervision or Touching Assistance-helper provides verbal cues and/or touching/steadying and/or contact guard assistance as patient completes activity. Assistance may be provided throughout the activity or intermittently. 3-Partial/Moderate Assistance-helper does LESS THAN HALF the effort. [place] lifts, holds or supports trunk or limbs, but provides less than half the effort. 2-Substantial/Maximal Assistance-helper does MORE THAN HALF the effort. [place] lifts or holds trunk or limbs and provides more than half the effort. 6-Kotxrbugf-lduysh does ALL the effort. Patient does none of the effort to complete the activity. Or, the assistance of 2 or more helpers is required for the patient to complete the activity. If activity was not attempted, code reason: 7-Patient Refused. 9-Not Applicable-not attempted and the patient did not perform the activity before the current illness, exacerbation or injury. 10-Not Attempted due to Environmental Limitations-(lack of equipment, weather restraints, etc.). 88-Not Attempted due to Medical Conditions or Safety Concerns. Oral Hygiene (QC): 3 Upper Body Dressing (QC): 4 Lower Body Dressing (QC): 4 (cga) Toileting Hygiene (QC): 4 Toilet Transfer (QC): 3 Pt ambulated within room with CGA-Min a and use of walker. 1 lateral loss of balance with pt able to self recover. Pt will often make wide turns with walker and bump into objects on R side. Pt is blind in R eye. Education on safety and scanning of room when entering. He performed toilet transfers until fatigue with goal to promote increased endurance and LE strength. Pt only able to tolerate 3 sit<>stands before needing lengthy sitting rest break. Pt initially able to perform with CGA yet requires mod a for lift when fatigue worsens. Pt encouraged to perform oral care in standing this date. With prolong standing, pt sinks further into flexion. Intermittent min a for standing balance with cues for upright posture and improving DOMINIQUE. Mild improvements observed post cues. Pt sat to shave, min a for thoroughness due to limited pressure applied by patient. He sat to doff/don new clothing. OT instructed pt on use of research affiliate if needed, but pt able to manage without AE this date. He utilizes cross over method to thread LLE, unable to perform on right. Thus, he placed shorts onto floor to slide foot into and bent forward at waist to pull up. CGA for safety as he stood to pull up to waist. Other Treatment Pt performed Bilateral AROM with goal to increase endurance, coordination and UE strength needed for adls and transfers. Pt will fatigue after ~12-15 reps and requires lengthy rest break. Tactile cues and physical assist with correct form with LUE exercises secondary to weakness and reduced coordination. Pt also completed functional reaching task in sitting to build core strength and flexibility for functional tasks. Min cues for safety and incorporating proper core muscles during activity. Education OT Patient Education: Correct positioning, Disease process, Energy conservation, Exercise program, Modified ADL techniques, Progress toward Goal/Update tx plan, Purpose of tx/functional activities, Reviewed precautions, Rehab process, Safety issues, Transfer techniques, Use of adapted equipment Teaching Recipient: Patient Teaching Methods: Demonstration, Discussion Response to Teaching: Return Demonstration, Reinforcement Needed OT Short Term Goals Short Term Goals Time Frame: Aug 01, 2021 Eatin Oral hygiene: 5 Toileting hygiene: 4 (CGA) Shower/bathe self: 3 Upper body dressin Lower body dressin (CGA) Putting on/taking off footwear: 4 OT Senior Care Goals Chief Dispatcher Service Goals Time Frame: Aug 11, 2021 Eating (QC): 6 Oral Hygiene (QC): 6 Toileting Hygiene (QC): 4 Shower/Bathe Self (QC): 4 Upper Body Dressing (QC): 4 Lower Body Dressing (QC): 4 On/Off Footwear (QC): 4 1=Demonstrate adherence to instructed precautions during ADL tasks. 2=Patient will verbalize/demonstrate understanding of assistive devices/modifications for ADL. 3=Patient will improve strength/tolerance for activity to enable patient to perform ADL's. OT Education/Plan Problem List/Assessment Assessment: Decreased Activ Tolerance, Decreased Safety Aware, Decreased UE Strength, Impaired Coordination, Impaired Funct Balance, Impaired Self-Care Skills, Restricted Funct UE ROM Discharge Recommendations Plan/Recommendations: Continue POC Treatment Plan/Plan of Care Treatment,Training & Education: Yes Patient would benefit from OT for education, treatment and training to promote independence in ADL's, mobility, safety and/or upper extremity function for ADL's. Plan of Care: ADL Retraining, Caregiver Training, Functional Mobility, Group Exercise/Act as Ind, UE Funct Exercise/Act, UE Neuromus Re-Ed/Coord, W/C Management Training Treatment Duration: Aug 11, 2021 Frequency: At least 5 of 7 days/Wk (IRF) Estimated Hrs Per Day: 1.5 hours per day Agreement: Yes Rehab Potential: Fair Time/GCodes Start Time: 09:30 Stop Time: 11:00 Total Time Billed (hr/min): 90 Billed Treatment Time 1 visit, ADL x4 (60 min) EX x1 (20 min) FA x1 (10 min) Arcelia Deleon OT Jul 27, 2021 11:12
[2021-07-27] MEDS: polyethylene glycoL POWDER 17 GM (MIRALAX) PACK PO SCH ×2 (11:20→21:00)
[2021-07-27] MEDS: SENNA W/DOCUSATE (SENOKOT S) TABLET PO SCH ×2 (11:20→21:00)
[2021-07-27] MEDS: DOCUSATE SODIUM 100 MG (COLACE) CAP PO SCH ×2 (11:20→21:00)
--- NOTE | 2021-07-27 12:06 | Physical Therapy Daily Note ---
PT Daily Note-Current Subjective Pt sitting in recliner upon arrival. Pt agrees to PT. Mental Status Patient Orientation: Person, Place, Time, Situation Transfers SCALE: Activities may be completed with or without assistive devices. 6-Rzsympvoyc-vfqzgtp completes the activity by him/herself with no assistance from a helper. 5-Set-up or Clean-up Assistance-helper sets up or cleans up; patient completes activity. [place] assists only prior to or following the activity. 4-Supervision or Touching Assistance-helper provides verbal cues and/or touching/steadying and/or contact guard assistance as patient completes activity. Assistance may be provided throughout the activity or intermittently. 3-Partial/Moderate Assistance-helper does LESS THAN HALF the effort. [place] lifts, holds or supports trunk or limbs, but provides less than half the effort. 2-Substantial/Maximal Assistance-helper does MORE THAN HALF the effort. [place] lifts or holds trunk or limbs and provides more than half the effort. 3-Kjpwydxkq-uzfbzk does ALL the effort. Patient does none of the effort to complete the activity. Or, the assistance of 2 or more helpers is required for the patient to complete the activity. If activity was not attempted, code reason: 7-Patient Refused. 9-Not Applicable-not attempted and the patient did not perform the activity before the current illness, exacerbation or injury. 10-Not Attempted due to Environmental Limitations-(lack of equipment, weather restraints, etc.). 88-Not Attempted due to Medical Conditions or Safety Concerns. Sit to Stand (QC): 4 Toilet Transfer (QC): 4 Weight Bearing Full Weight Bearing Full Weight Bearing Gait Training Does the Patient Walk?: Yes Distance: 175' x2 Walk 10 feet (QC): 5 Walk 50 ft with 2 Turns(QC): 4 Walk 150 ft (QC): 4 Gait Persons Needed: 1 Gait Assistive Device: FWW Wheelchair Training Does the Pt Use a Wheelchair?: No Exercises Standing: Hip Abduction, Hamstring curls, Marching Standing Reps: 15 NuStep Minutes: 15 NuStep Workload: 4 Treatments TF to standing, uses BR. Pt amb. in hallway. Pt uses NuStep for 15m at WL 4 then completes Standing Ex in //bars. Pt amb. in hallway and returns to room, resting in recliner. All needs met, call light in hand. Assessment Current Status: Good Progress Pt is motivated and continues to try to progress a little more each tx by improving mobility, transfers and ambulation. PT Short Term Goals Short Term Goals Time Frame: Aug 01, 2021 Roll Left & Right: 6 Sit to lyin Lying to sitting on side of be: 5 Sit to stand: 4 Chair/qod-sh-climq transfer: 4 Walk 10 feet: 4 Walk 50 feet with two turns: 4 Walk 150 feet: 4 PT Contract Management Specialist Goals Usp Goals PT Contract Management Specialist Goals Time Frame: Aug 15, 2021 Roll Left & Right (QC): 6 Sit to Lying (QC): 6 Lying-Sitting on Side/Bed(QC): 6 Sit to Stand (QC): 5 Chair/Aor-lu-Pnujv Xfer(QC): 5 Toilet Transfer (QC): 5 Car Transfer (QC): 5 Does the Patient Walk: Yes Walk 10 feet (QC): 5 Walk 50ft with 2 Turns (QC): 5 Walk 150 ft (QC): 5 Walking 10ft on Uneven Surface: 4 1 Step (curb) (QC): 4 4 Steps (QC): 4 12 Steps (QC): 88 Picking up an Object (QC): 4 Wheel 50 feet with 2 turns (QC: 9 Wheel 150 feet: 9 PT Plan Problem List Problem List: Activity Tolerance, Functional Strength Treatment/Plan Treatment Plan: Continue Plan of Care Treatment Plan: Bed Mobility, Education, Functional Activity Adriana, Functional Strength, Group Therapy, Gait, Safety, Therapeutic Exercise, Transfers Treatment Duration: Aug 15, 2021 Frequency: At least 5 of 7 days/Wk (IRF) Estimated Hrs Per Day: 1.5 hours per day Patient and/or Family Agrees t: Yes Safety Risks/Education Patient Education: Correct Positioning Teaching Recipient: Patient Teaching Methods: Discussion Response to Teaching: Verbalize Understanding Time/GCodes Time In: 1100 Time Out: 1200 Total Billed Treatment Time: 60 Total Billed Treatment 1, GT (15m), EX x2 (30m) & FA (15m) MALIA VERGARA BOTTLE CAPPER Jul 27, 2021 12:06
[2021-07-27] MEDS ORDERED: RT-ALBUTEROL SULF 2.5 MG/3 ML PRE-MIX VIAL INH PRN (13:30)
--- NOTE | 2021-07-27 15:18 | Physical Therapy Daily Note ---
PT Daily Note-Current Subjective Pt sitting in recliner upon arrival. Pt agrees to PT. Pain Location: No Pain Reported Mental Status Patient Orientation: Person, Place, Time, Situation Transfers SCALE: Activities may be completed with or without assistive devices. 2-Bwaleckycu-owiyeic completes the activity by him/herself with no assistance from a helper. 5-Set-up or Clean-up Assistance-helper sets up or cleans up; patient completes activity. [place] assists only prior to or following the activity. 4-Supervision or Touching Assistance-helper provides verbal cues and/or touching/steadying and/or contact guard assistance as patient completes activity. Assistance may be provided throughout the activity or intermittently. 3-Partial/Moderate Assistance-helper does LESS THAN HALF the effort. [place] lifts, holds or supports trunk or limbs, but provides less than half the effort. 2-Substantial/Maximal Assistance-helper does MORE THAN HALF the effort. [place] lifts or holds trunk or limbs and provides more than half the effort. 6-Pmdbipqvo-eyjnyy does ALL the effort. Patient does none of the effort to complete the activity. Or, the assistance of 2 or more helpers is required for the patient to complete the activity. If activity was not attempted, code reason: 7-Patient Refused. 9-Not Applicable-not attempted and the patient did not perform the activity bef ore the current illness, exacerbation or injury. 10-Not Attempted due to Environmental Limitations-(lack of equipment, weather r estraints, etc.). 88-Not Attempted due to Medical Conditions or Safety Concerns. Sit to Stand (QC): 5 Weight Bearing Full Weight Bearing Full Weight Bearing Gait Training Does the Patient Walk?: Yes Distance: 30' Walk 10 feet (QC): 5 Gait Persons Needed: 1 Gait Assistive Device: FWW Exercises Seated Therapy Exercises: Ankle pumps, Long arc quads, Hip flexion, Hip abd/add, Glut set Seated Reps: 15 Treatments TF to standing then uses BR. Pt amb. back to recliner and rests before completing Seated & discussed Supine Ex. Pt resting with all needs met, call light in hand. Assessment Current Status: Good Progress Pt is fatigued by end of tx. PT Short Term Goals Short Term Goals Time Frame: Aug 01, 2021 Roll Left & Right: 6 Sit to lyin Lying to sitting on side of be: 5 Sit to stand: 4 Chair/vej-hc-lnfjg transfer: 4 Walk 10 feet: 4 Walk 50 feet with two turns: 4 Walk 150 feet: 4 PT Intermodal Truck Driver Goals Intermodal Truck Driver Goals PT Intermodal Truck Driver Goals Time Frame: Aug 15, 2021 Roll Left & Right (QC): 6 Sit to Lying (QC): 6 Lying-Sitting on Side/Bed(QC): 6 Sit to Stand (QC): 5 Chair/Owj-vt-Fpyrr Xfer(QC): 5 Toilet Transfer (QC): 5 Car Transfer (QC): 5 Does the Patient Walk: Yes Walk 10 feet (QC): 5 Walk 50ft with 2 Turns (QC): 5 Walk 150 ft (QC): 5 Walking 10ft on Uneven Surface: 4 1 Step (curb) (QC): 4 4 Steps (QC): 4 12 Steps (QC): 88 Picking up an Object (QC): 4 Wheel 50 feet with 2 turns (QC: 9 Wheel 150 feet: 9 PT Plan Problem List Problem List: Activity Tolerance, Functional Strength Treatment/Plan Treatment Plan: Continue Plan of Care Treatment Plan: Bed Mobility, Education, Functional Activity Adriana, Functional Strength, Group Therapy, Gait, Safety, Therapeutic Exercise, Transfers Treatment Duration: Aug 15, 2021 Frequency: At least 5 of 7 days/Wk (IRF) Estimated Hrs Per Day: 1.5 hours per day Patient and/or Family Agrees t: Yes Time/GCodes Time In: 1400 Time Out: 1430 Total Billed Treatment Time: 30 Total Billed Treatment 1, EX (15m) & FA (15m) MALIA VERGARA PTA Jul 27, 2021 15:18
[2021-07-27] MEDS: ENOXAPARIN 40 MG/0.4 ML (LOVENOX) SYR SC SCH (16:57)
[2021-07-27 20:00] VITALS: BP 152/70
[2021-07-27] MEDS: LACTOBACILLUS ACIDOPHILUS (PROBIOTIC) CAPSULE PO SCH (20:57)
[2021-07-27] MEDS: TAMSULOSIN 0.4 MG (FLOMAX) CAP PO SCH (20:58)
[2021-07-27] MEDS: MELATONIN 3 MG TABLET PO SCH (20:58)
[2021-07-27] MEDS: LATANOPROST 0.005% (XALATAN) OPHTH SOLN 2.5 ML OU SCH (20:59)
[2021-07-27] MEDS: PHENobarbital 64.8 MG (1 GRAIN) TAb PO SCH (21:05)
--- NOTE | 2021-07-28 05:48 | PM&R Progress Note ---
Subjective HPI/CC On Admission Date Seen by Provider: Jul 28, 2021 Time Seen by Provider: 12:00 Subjective/Events-last exam 07/28/2021: Patient doing really well today Loose bowels x2 1 L of oxygen last night Once again discussed his noncompliance with CPAP Appreciate pulmonary consult yesterday 07/27/2021: Patient doing really well Pulmonary consult reviewed and I conferred with the physician who recommended restarting CPAP Bowels moved today Incontinent of bowel and bladder at times but that is a chronic issue since stroke 07/26/2021: No major issues Declines wearing CPAP Has some PTSD noted during conversation Incontinent of bowel and bladder at times We will discontinue the Hep-Lock Trulicity will be brought in by his today Finishing up with Decadron Review of Systems General: Fatigue, Malaise Pulmonary: Dyspnea Objective Exam Vital Signs Vital Signs Date Time Temp Pulse Resp B/P (MAP) Pulse Ox O2 Delivery O2 Flow Rate FiO2 07/28/21 20:40 99 Room Air 07/28/21 20:38 36.4 70 20 147/80 (102) 1.00 Capillary Refill : General Appearance: No Apparent Distress, WD/WN, Chronically ill, Obese HEENT: PERRL/EOMI, Normal ENT Inspection, Pharynx Normal Neck: Full Range of Motion, Normal Inspection, Non Tender, Supple, Carotid Bruit Respiratory: Chest Non Tender, Normal Breath Sounds, No Accessory Muscle Use, No Respiratory Distress, Decreased Breath Sounds Cardiovascular: Regular Rate, Rhythm, No Edema, No Gallop, No JVD, No Murmur, Normal Peripheral Pulses Gastrointestinal: Normal Bowel Sounds, No Organomegaly, No Pulsatile Mass, Non Tender, Soft Back: Normal Inspection, No CVA Tenderness, No Vertebral Tenderness Extremity: Normal Capillary Refill, Normal Inspection, Normal Range of Motion, Non Tender, No Calf Tenderness, No Pedal Edema Neurologic/Psychiatric: Alert, Oriented x3, family and consumer sciences professor II-XII Norm as 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 FIM Transfers Therapy Code Descriptions/Definitions Functional [place] Measure: 0=Not Assessed/NA 4=Minimal Assistance 1=Total Assistance 5=Supervision or Setup 2=Maximal Assistance 6=Modified [place] 3=Moderate Assistance 7=Complete IndependenceSCALE: Activities may be completed with or without assistive devices. 5-Wityqqefgt-avknyvk completes the activity by him/herself with no assistance from a helper. 5-Set-up or Clean-up Assistance-helper sets up or cleans up; patient completes activity. [place] assists only prior to or following the activity. 4-Supervision or Touching Assistance-helper provides verbal cues and/or touching/steadying and/or contact guard assistance as patient completes activity. Assistance may be provided throughout the activity or intermittently. 3-Partial/Moderate Assistance-helper does LESS THAN HALF the effort. [place] lifts, holds or supports trunk or limbs, but provides less than half the effort. 2-Substantial/Maximal Assistance-helper does MORE THAN HALF the effort. [place] lifts or holds trunk or limbs and provides more than half the effort. 6-Tjajcymog-kolnbt does ALL the effort. Patient does none of the effort to complete the activity. Or, the assistance of 2 or more helpers is required for the patient to complete the activity. If activity was not attempted, code reason: 7-Patient Refused. 9-Not Applicable-not attempted and the patient did not perform the activity before the current illness, exacerbation or injury. 10-Not Attempted due to Environmental Limitations-(lack of equipment, weather restraints, etc.). 88-Not Attempted due to Medical Conditions or Safety Concerns. Roll Left to Right (QC): 6 Sit to Lying (QC): 4 Sit to Stand (QC): 5 Chair/Zqk-ii-Zesnu Xfer(QC): 4 Car Transfer (QC): 4 Gait Training Does the Patient Walk?: Yes Distance: 30' Walk 10 feet (QC): 5 Walk 50 ft with 2 Turns(QC): 4 Walk 150 ft (QC): 4 Walking 10ft/uneven surface-QC: 4 Gait Persons Needed: 1 Gait Assistive Device: FWW Wheelchair Training Does the Pt Use a Wheelchair?: No Distance: 100' Wheel 50 ft with 2 turns (QC): 4 Wheel 150 ft (QC): 88 Type of Wheelchair: Manual Stair Training #of Steps: 1 1 Step (curb) (QC): 4 4 Steps (QC): 88 12 Steps (QC): 88 Balance Picking up an Object (QC): 88 ADL-Treatment Eating (QC): 5 Oral Hygiene (QC): 3 Bathing Location: L Arm, R Arm, L Upper Leg, R Upper Leg, L Lower Leg (including foot), R Lower Leg (including foot), Chest, Abdomen, Buttocks, Perineal Area Shower/Bathe Self (QC): 3 Upper Body Dressing (QC): 4 Lower Body Dressing (QC): 4 (cga) On/Off Footwear (QC): 3 Toileting Hygiene (QC): 4 Toilet Transfer (QC): 3 Assessment/Plan Assessment and Plan Assess & Plan/Chief Complaint Assessment: Post Covid syndrome Hypoxia Obesity Diabetes Hypertension Hyperlipidemia Prior stroke with left-sided hemiparesis Plan: Supportive care Oxygen supplementation Aggressive therapy 07/26/2021: Continue supportive care Monitor for hypoxia 07/27/2021: Pulmonary consult appreciated Monitor incontinence Maintain aggressive therapy 07/28/2021: Monitor loose stools Oxygen at night (1) Post-COVID syndrome (2) Hypertension (3) BPH (benign prostatic hyperplasia) (4) Diabetes (5) History of stroke HANNA GARCIA DO Jul 28, 2021 05:48
[2021-07-28] MEDS: inSUlin ASPART (NovoLOG) 1 UNIT/0.01 ML (CHARGE PER UNIT) SC SCH ×4 (06:00→21:26)
[2021-07-28] MEDS: LEVOTHYROXINE 100 MCG (LEVOTHROID) TAB PO SCH (06:58)
[2021-07-28 07:30] VITALS: BP 151/67
[2021-07-28] MEDS: SENNA W/DOCUSATE (SENOKOT S) TABLET PO SCH ×2 (07:54→21:26)
[2021-07-28] MEDS: FAMOTIDINE 20 MG (PEPCID) TABLET PO SCH ×2 (07:54→20:35)
[2021-07-28] MEDS: metFORMIN XR 500 MG (GLUCOPHAGE XR) TAB PO SCH ×2 (07:54→18:15)
[2021-07-28] MEDS: lisINopril 20 MG (PRINIVIL) TABLET PO SCH (07:55)
[2021-07-28] MEDS: PHENYTOIN 100 MG (DILANTIN) CAP PO SCH ×3 (07:55→20:35)
[2021-07-28] MEDS: amLODIPine 5 MG (NORVASC) TAB PO SCH ×2 (07:55→20:35)
[2021-07-28] MEDS: FUROSEMIDE 20 MG (LASIX) TAB PO SCH (07:56)
[2021-07-28] MEDS: ASPIRIN E.C. 81 MG (ECOTRIN) TAB PO SCH (07:56)
[2021-07-28] MEDS: CALCIUM CARB + VIT D 600 MG (CALCARB + D) TAB PO SCH ×2 (07:56→18:15)
[2021-07-28] MEDS: DOCUSATE SODIUM 100 MG (COLACE) CAP PO SCH ×2 (07:56→21:25)
[2021-07-28] MEDS: [UNRECOGNIZED DRUG - REMARK] PO SCH (07:58)
[2021-07-28] MEDS: BRIMONIDINE 0.2% (ALPHAGAN) OPHTH SOLN 5 ML BTL OS SCH ×2 (07:59→20:36)
--- NOTE | 2021-07-28 09:23 | Occupational Ther Daily Note ---
OT Current Status-Daily Note Subjective Pt denies pain, agreeable to treatment. Appearance Pt left sitting in chair, all needs met at OT departure. Mental Status/Objective Patient Orientation: Person, Place, Situation ADL-Treatment Therapy Code Descriptions/Definitions Functional [place] Measure: 0=Not Assessed/NA 4=Minimal Assistance 1=Total Assistance 5=Supervision or Setup 2=Maximal Assistance 6=Modified [place] 3=Moderate Assistance 7=Complete IndependenceSCALE: Activities may be completed with or without assistive devices. 6-Kqmdjbrvgy-qcmvkgi completes the activity by him/herself with no assistance from a helper. 5-Set-up or Clean-up Assistance-helper sets up or cleans up; patient completes activity. [place] assists only prior to or following the activity. 4-Supervision or Touching Assistance-helper provides verbal cues and/or touching/steadying and/or contact guard assistance as patient completes activity. Assistance may be provided throughout the activity or intermittently. 3-Partial/Moderate Assistance-helper does LESS THAN HALF the effort. [place] lifts, holds or supports trunk or limbs, but provides less than half the effort. 2-Substantial/Maximal Assistance-helper does MORE THAN HALF the effort. [place] lifts or holds trunk or limbs and provides more than half the effort. 8-Oqdlbwmuk-ofzbcq does ALL the effort. Patient does none of the effort to complete the activity. Or, the assistance of 2 or more helpers is required for the patient to complete the activity. If activity was not attempted, code reason: 7-Patient Refused. 9-Not Applicable-not attempted and the patient did not perform the activity before the current illness, exacerbation or injury. 10-Not Attempted due to Environmental Limitations-(lack of equipment, weather restraints, etc.). 88-Not Attempted due to Medical Conditions or Safety Concerns. Oral Hygiene (QC): 3 (steadying assist) Bathing Location: L Arm, R Arm, L Upper Leg, R Upper Leg, L Lower Leg (including foot), R Lower Leg (including foot), Chest, Abdomen, Buttocks, P erineal Area Shower/Bathe Self (QC): 4 (CGA) Upper Body Dressing (QC): 4 (sba) Lower Body Dressing (QC): 4 (CGA) On/Off Footwear: 3 (Mod) Toileting Hygiene (QC): 3 Toilet Transfer (QC): 4 Shower performed; majority completed in sitting. He stood only to wash gael area/buttocks with close sup for safety. Single UE support on grab bar needed at all times in standing. Improved standing tolerance exhibited, but still unable to tolerate standing long enough to complete task. 1 sitting break needed. Extra time to initiate use of soap, but no cues needed today. He is able to wash Left foot with use of cross over method, requires UE's to lift and cross. Improved sitting balance, but close sup for safety required. He bent forward at waist to reach R ankle, unable to reach or cross foot due to weakness and impaired flexibility. Pt willing to use LHS after attempting without equipment first. Clothing donned seated on shower bench. Pt utilizes figure 4 method to thread LLE and then places clothing onto floor to thread R. He requires use of UE's to lift feet high enough off floor. CGA for safety as he managed clothing up to waist in standing. Due to tight fit with AFO, pt dependant to don L shoe. He ambulated to sink with AFO, slightly more unsteadiness exhibited, leg height discrepancy? Pt also swaying back and forth when standing at sink to brush teeth, thus needing CGA/min a for balance. Discussed with Physical therapy on checking for adjustments if needed. Cues for widening DOMINIQUE for improved stability. Prior to shower, pt continent of bowels (diarrhea) in toilet. RN notified on reducing stool softeners at this time. Education OT Patient Education: Correct positioning, Disease process, Energy conservation, Modified ADL techniques, Progress toward Goal/Update tx plan, Purpose of tx/functional activities, Reviewed precautions, Rehab process, Safety issues, Transfer techniques, Use of adapted equipment Teaching Recipient: Patient Teaching Methods: Demonstration, Discussion Response to Teaching: Verbalize Understanding, Return Demonstration, Reinforce ment Needed OT Short Term Goals Short Term Goals Time Frame: Aug 01, 2021 Eatin Oral hygiene: 5 Toileting hygiene: 4 (CGA) Shower/bathe self: 3 Upper body dressin Lower body dressin (CGA) Putting on/taking off footwear: 4 OT Retirement Goals Retirement Goals Time Frame: Aug 11, 2021 Eating (QC): 6 Oral Hygiene (QC): 6 Toileting Hygiene (QC): 4 Shower/Bathe Self (QC): 4 Upper Body Dressing (QC): 4 Lower Body Dressing (QC): 4 On/Off Footwear (QC): 4 1=Demonstrate adherence to instructed precautions during ADL tasks. 2=Patient will verbalize/demonstrate understanding of assistive devices/modifications for ADL. 3=Patient will improve strength/tolerance for activity to enable patient to perform ADL's. OT Education/Plan Problem List/Assessment Assessment: Decreased Activ Tolerance, Decreased Safety Aware, Decreased UE S trength, Impaired Coordination, Impaired Funct Balance, Impaired Self-Care Skills Discharge Recommendations Plan/Recommendations: Continue POC Target Placement Home health pending progress Treatment Plan/Plan of Care Treatment,Training & Education: Yes Patient would benefit from OT for education, treatment and training to promote independence in ADL's, mobility, safety and/or upper extremity function for ADL's. Plan of Care: ADL Retraining, Caregiver Training, Functional Mobility, Group Exercise/Act as Ind, UE Funct Exercise/Act, UE Neuromus Re-Ed/Coord, W/C Management Training Treatment Duration: Aug 11, 2021 Frequency: At least 5 of 7 days/Wk (IRF) Estimated Hrs Per Day: 1.5 hours per day Agreement: Yes Rehab Potential: Fair Time/GCodes Start Time: 07:47 Stop Time: 09:17 Total Time Billed (hr/min): 90 Billed Treatment Time 1 visit, ADL x6 Arcelia Deleon OT Jul 28, 2021 09:23
--- NOTE | 2021-07-28 11:32 | Physical Therapy Daily Note ---
PT Daily Note-Current Subjective Pt in recliner upon arrival and agrees to tx. Pt expresses concern about wearing AFO, states he is worried it would cut circulation off of LE. NURSING ASSOC explained it would need to be strapped extremely tight to do so. Mental Status Patient Orientation: Person, Place, Time, Situation Transfers SCALE: Activities may be completed with or without assistive devices. 1-Izhjdqrrvo-ezaorgz completes the activity by him/herself with no assistance from a helper. 5-Set-up or Clean-up Assistance-helper sets up or cleans up; patient completes activity. [place] assists only prior to or following the activity. 4-Supervision or Touching Assistance-helper provides verbal cues and/or touching/steadying and/or contact guard assistance as patient completes activity. Assistance may be provided throughout the activity or intermittently. 3-Partial/Moderate Assistance-helper does LESS THAN HALF the effort. [place] lifts, holds or supports trunk or limbs, but provides less than half the effort. 2-Substantial/Maximal Assistance-helper does MORE THAN HALF the effort. [place] lifts or holds trunk or limbs and provides more than half the effort. 3-Akdqtxfou-fmyumn does ALL the effort. Patient does none of the effort to complete the activity. Or, the assistance of 2 or more helpers is required for the patient to complete the activity. If activity was not attempted, code reason: 7-Patient Refused. 9-Not Applicable-not attempted and the patient did not perform the activity before the current illness, exacerbation or injury. 10-Not Attempted due to Environmental Limitations-(lack of equipment, weather restraints, etc.). 88-Not Attempted due to Medical Conditions or Safety Concerns. Sit to Stand (QC): 4 Weight Bearing Full Weight Bearing Full Weight Bearing Gait Training Distance: 150' x2 Walk 10 feet (QC): 4 Walk 50 ft with 2 Turns(QC): 4 Walk 150 ft (QC): 4 Gait Persons Needed: 1 Gait Assistive Device: FWW Pt requies VC for L LE clearance, has narrow DOMINIQUE. Exercises Seated Therapy Exercises: Ankle pumps, Hip abd/add Seated Reps: 15 Standing: Marching, Mini squats, Sit to Stand Standing Reps: 10 W/ standing ex, pt requires VC to keep wide DOMINIQUE as pt tends to step on feet when landing from ex. NuStep Minutes: 15 NuStep Workload: 4 Treatments Pt sit to stand from recliner CGA, and amb to bathroom. Pt able to doff/don pants and clean self CGA. Pt amb 150' to therapy gym and completes NuStep. Pt goes to // bars and completes standing ex w/ rest breaks as needed. Pt amb another 150' back to room and request to use bathroom again. Pt then amb back to recliner in room. Pt left with all needs met, call light in hand. Assessment Current Status: Good Progress Pt increasing strength and endurance. Pt attempted todays tx w/o AFO, required VC for L LE clearance in swing through. Recommend pt wear AFO when not w/ therapy. PT Short Term Goals Short Term Goals Time Frame: Aug 01, 2021 Roll Left & Right: 6 Sit to lyin Lying to sitting on side of be: 5 Sit to stand: 4 Chair/ivk-tf-rrasy transfer: 4 Walk 10 feet: 4 Walk 50 feet with two turns: 4 Walk 150 feet: 4 PT [facility] Goals Conditioner Tumbler Goals PT [facility] Goals Time Frame: Aug 15, 2021 Roll Left & Right (QC): 6 Sit to Lying (QC): 6 Lying-Sitting on Side/Bed(QC): 6 Sit to Stand (QC): 5 Chair/Hlw-sn-Oyzcm Xfer(QC): 5 Toilet Transfer (QC): 5 Car Transfer (QC): 5 Does the Patient Walk: Yes Walk 10 feet (QC): 5 Walk 50ft with 2 Turns (QC): 5 Walk 150 ft (QC): 5 Walking 10ft on Uneven Surface: 4 1 Step (curb) (QC): 4 4 Steps (QC): 4 12 Steps (QC): 88 Picking up an Object (QC): 4 Wheel 50 feet with 2 turns (QC: 9 Wheel 150 feet: 9 PT Plan Treatment/Plan Treatment Plan: Continue Plan of Care Treatment Plan: Bed Mobility, Education, Functional Activity Adriana, Functional Strength, Group Therapy, Gait, Safety, Therapeutic Exercise, Transfers Treatment Duration: Aug 15, 2021 Frequency: At least 5 of 7 days/Wk (IRF) Estimated Hrs Per Day: 1.5 hours per day Patient and/or Family Agrees t: Yes Time/GCodes Time In: 1030 Time Out: 1130 Total Billed Treatment Time: 60 Total Billed Treatment 1, FA, GT, EX x2 [facility] Jul 28, 2021 11:32
--- NOTE | 2021-07-28 13:35 | Physical Therapy Daily Note ---
PT Daily Note-Current Subjective Pt in bathroom upon arrival and agrees to tx. Mental Status Patient Orientation: Person, Place, Situation Transfers SCALE: Activities may be completed with or without assistive devices. 9-Fdmzejbsrx-xcaojjc completes the activity by him/herself with no assistance from a helper. 5-Set-up or Clean-up Assistance-helper sets up or cleans up; patient completes activity. [place] assists only prior to or following the activity. 4-Supervision or Touching Assistance-helper provides verbal cues and/or touc maninder/steadying and/or contact guard assistance as patient completes activity. Assistance may be provided throughout the activity or intermittently. 3-Partial/Moderate Assistance-helper does LESS THAN HALF the effort. [place] lifts, holds or supports trunk or limbs, but provides less than half the effort. 2-Substantial/Maximal Assistance-helper does MORE THAN HALF the effort. [place] lifts or holds trunk or limbs and provides more than half the effort. 7-Ysvidfnxi-haxzli does ALL the effort. Patient does none of the effort to complete the activity. Or, the assistance of 2 or more helpers is required for the patient to complete the activity. If activity was not attempted, code reason: 7-Patient Refused. 9-Not Applicable-not attempted and the patient did not perform the activity before the current illness, exacerbation or injury. 10-Not Attempted due to Environmental Limitations-(lack of equipment, weather restraints, etc.). 88-Not Attempted due to Medical Conditions or Safety Concerns. Sit to Stand (QC): 4 Weight Bearing Full Weight Bearing Full Weight Bearing Gait Training Does the Patient Walk?: Yes Distance: 150' x2 Walk 10 feet (QC): 4 Walk 50 ft with 2 Turns(QC): 4 Walk 150 ft (QC): 4 Gait Assistive Device: FWW VC for L LE clearance, keeping FWW closer to self, and upright posture. Pt tends to cross feet with turns Stair Training Stair Training: Handrails/: 2 handrails #of Steps: 1 1 Step (curb) (QC): 4 Pt completes curb step x4 in // bars and CGA. VC for sequencing and safety Treatments Pt in bathroom, completes sit to stand and dons clothes/cleans self CGA. Pt amb to sink in bedroom, washes hands CGA. Pt amb 150' to // bars in therapy gym. Pt completes curb step x4. Pt would complete step, amb to end of // bars, turn around (VC to not cross feet), and complete step again x2 (VC to keep wide DOMINIQUE on step). Pt then completes dynamic standing balance activity, reaching w/ R UE and performing weight shifts throughout. Assessment Current Status: Good Progress Pt requires VC throughout gait, but overall increasing mobility, strength, and balance PT Short Term Goals Short Term Goals Time Frame: Aug 01, 2021 Roll Left & Right: 6 Sit to lyin Lying to sitting on side of be: 5 Sit to stand: 4 Chair/ktt-sd-xsgtu transfer: 4 Walk 10 feet: 4 Walk 50 feet with two turns: 4 Walk 150 feet: 4 PT Long-Term Goals Electrical And Instrumentation Mechanic Goals PT Long-Term Goals Time Frame: Aug 15, 2021 Roll Left & Right (QC): 6 Sit to Lying (QC): 6 Lying-Sitting on Side/Bed(QC): 6 Sit to Stand (QC): 5 Chair/Vvu-ds-Miery Xfer(QC): 5 Toilet Transfer (QC): 5 Car Transfer (QC): 5 Does the Patient Walk: Yes Walk 10 feet (QC): 5 Walk 50ft with 2 Turns (QC): 5 Walk 150 ft (QC): 5 Walking 10ft on Uneven Surface: 4 1 Step (curb) (QC): 4 4 Steps (QC): 4 12 Steps (QC): 88 Picking up an Object (QC): 4 Wheel 50 feet with 2 turns (QC: 9 Wheel 150 feet: 9 PT Plan Treatment/Plan Treatment Plan: Continue Plan of Care Treatment Plan: Bed Mobility, Education, Functional Activity Adriana, Functional Strength, Group Therapy, Gait, Safety, Therapeutic Exercise, Transfers Treatment Duration: Aug 15, 2021 Frequency: At least 5 of 7 days/Wk (IRF) Estimated Hrs Per Day: 1.5 hours per day Patient and/or Family Agrees t: Yes Time/GCodes Time In: 1300 Time Out: 1330 Total Billed Treatment Time: 30 Total Billed Treatment 1, FA, SANDRA MICHAELS [employer]STRUCTION WORKER Jul 28, 2021 13:35
[2021-07-28] MEDS: polyethylene glycoL POWDER 17 GM (MIRALAX) PACK PO SCH ×2 (15:15→21:26)
[2021-07-28] MEDS: ENOXAPARIN 40 MG/0.4 ML (LOVENOX) SYR SC SCH (16:32)
[2021-07-28] MEDS: PHENobarbital 64.8 MG (1 GRAIN) TAb PO SCH (20:34)
[2021-07-28] MEDS: TAMSULOSIN 0.4 MG (FLOMAX) CAP PO SCH (20:35)
[2021-07-28] MEDS: LACTOBACILLUS ACIDOPHILUS (PROBIOTIC) CAPSULE PO SCH (20:35)
[2021-07-28] MEDS: MELATONIN 3 MG TABLET PO SCH (20:35)
[2021-07-28] MEDS: LATANOPROST 0.005% (XALATAN) OPHTH SOLN 2.5 ML OU SCH (20:36)
[2021-07-28 20:38] VITALS: BP 147/80
[2021-07-29] MEDS: LEVOTHYROXINE 100 MCG (LEVOTHROID) TAB PO SCH (05:48)
[2021-07-29] MEDS: inSUlin ASPART (NovoLOG) 1 UNIT/0.01 ML (CHARGE PER UNIT) SC SCH ×4 (05:48→20:49)
--- NOTE | 2021-07-29 08:08 | PM&R Progress Note ---
Subjective HPI/CC On Admission Date Seen by Provider: Jul 29, 2021 Time Seen by Provider: 11:00 Subjective/Events-last exam 07/29/2021: Patient doing well Loose stools continue May need Questran 93% on room air Participating in therapy 07/28/2021: Patient doing really well today Loose bowels x2 1 L of oxygen last night Once again discussed his noncompliance with CPAP Appreciate pulmonary consult yesterday 07/27/2021: Patient doing really well Pulmonary consult reviewed and I conferred with the physician who recommended restarting CPAP Bowels moved today Incontinent of bowel and bladder at times but that is a chronic issue since stroke 07/26/2021: No major issues Declines wearing CPAP Has some PTSD noted during conversation Incontinent of bowel and bladder at times We will discontinue the Hep-Lock Trulicity will be brought in by his today Finishing up with Decadron Review of Systems General: Fatigue, Malaise Objective Exam Vital Signs Vital Signs Date Time Temp Pulse Resp B/P (MAP) Pulse Ox O2 Delivery O2 Flow Rate FiO2 07/29/21 20:23 36.5 74 20 144/65 (91) 98 Room Air 07/28/21 20:38 1.00 Capillary Refill : General Appearance: No Apparent Distress, WD/WN, Chronically ill, Obese HEENT: PERRL/EOMI, Normal ENT Inspection, Pharynx Normal Neck: Full Range of Motion, Normal Inspection, Non Tender, Supple, Carotid Bruit Respiratory: Chest Non Tender, Normal Breath Sounds, No Accessory Muscle Use, No Respiratory Distress, Decreased Breath Sounds Cardiovascular: Regular Rate, Rhythm, No Edema, No Gallop, No JVD, No Murmur, Normal Peripheral Pulses Gastrointestinal: Normal Bowel Sounds, No Organomegaly, No Pulsatile Mass, Non Tender, Soft Back: Normal Inspection, No CVA Tenderness, No Vertebral Tenderness Extremity: Normal Capillary Refill, Normal Inspection, Normal Range of Motion, Non Tender, No Calf Tenderness, No Pedal Edema Neurologic/Psychiatric: Alert, Oriented x3, 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 FIM Transfers Therapy Code Descriptions/Definitions Functional [place] Measure: 0=Not Assessed/NA 4=Minimal Assistance 1=Total Assistance 5=Supervision or Setup 2=Maximal Assistance 6=Modified [place] 3=Moderate Assistance 7=Complete IndependenceSCALE: Activities may be completed with or without assistive devices. 8-Eeuuuigzso-rbcqfdf completes the activity by him/herself with no assistance from a helper. 5-Set-up or Clean-up Assistance-helper sets up or cleans up; patient completes activity. [place] assists only prior to or following the activity. 4-Supervision or Touching Assistance-helper provides verbal cues and/or touching/steadying and/or contact guard assistance as patient completes activity. Assistance may be provided throughout the activity or intermittently. 3-Partial/Moderate Assistance-helper does LESS THAN HALF the effort. [place] lif ts, holds or supports trunk or limbs, but provides less than half the effort. 2-Substantial/Maximal Assistance-helper does MORE THAN HALF the effort. [place] lifts or holds trunk or limbs and provides more than half the effort. 9-Vpqdtolvt-rtebaq does ALL the effort. Patient does none of the effort to complete the activity. Or, the assistance of 2 or more helpers is required for the patient to complete the activity. If activity was not attempted, code reason: 7-Patient Refused. 9-Not Applicable-not attempted and the patient did not perform the activity before the current illness, exacerbation or injury. 10-Not Attempted due to Environmental Limitations-(lack of equipment, weather restraints, etc.). 88-Not Attempted due to Medical Conditions or Safety Concerns. Roll Left to Right (QC): 6 Sit to Lying (QC): 4 Sit to Stand (QC): 4 Chair/Eqb-yg-Rhswe Xfer(QC): 4 Car Transfer (QC): 4 Gait Training Does the Patient Walk?: Yes Distance: 150' x2 Walk 10 feet (QC): 4 Walk 50 ft with 2 Turns(QC): 4 Walk 150 ft (QC): 4 Walking 10ft/uneven surface-QC: 4 Gait Persons Needed: 1 Gait Assistive Device: FWW Wheelchair Training Does the Pt Use a Wheelchair?: No Distance: 100' Wheel 50 ft with 2 turns (QC): 4 Wheel 150 ft (QC): 88 Type of Wheelchair: Manual Stair Training Stair Training: Handrails/: 2 handrails #of Steps: 1 1 Step (curb) (QC): 4 4 Steps (QC): 88 12 Steps (QC): 88 Balance Picking up an Object (QC): 88 ADL-Treatment Eating (QC): 5 Oral Hygiene (QC): 3 (steadying assist) Bathing Location: L Arm, R Arm, L Upper Leg, R Upper Leg, L Lower Leg (including foot), R Lower Leg (including foot), Chest, Abdomen, Buttocks, Perineal Area Shower/Bathe Self (QC): 4 (CGA) Upper Body Dressing (QC): 4 (sba) Lower Body Dressing (QC): 4 (CGA) On/Off Footwear (QC): 3 (Mod) Toileting Hygiene (QC): 3 Toilet Transfer (QC): 4 Assessment/Plan Assessment and Plan Assess & Plan/Chief Complaint Assessment: Post Covid syndrome Hypoxia Obesity Diabetes Hypertension Hyperlipidemia Prior stroke with left-sided hemiparesis Plan: Supportive care Oxygen supplementation Aggressive therapy 07/26/2021: Continue supportive care Monitor for hypoxia 07/27/2021: Pulmonary consult appreciated Monitor incontinence Maintain aggressive therapy 07/28/2021: Monitor loose stools Oxygen at night 07/29/2021: Supportive care Monitor loose stools (1) Post-COVID syndrome (2) Hypertension (3) BPH (benign prostatic hyperplasia) (4) Diabetes (5) History of stroke HANNA GARCIA DO Jul 29, 2021 08:08
[2021-07-29 08:59] VITALS: BP 140/69
[2021-07-29] MEDS: FAMOTIDINE 20 MG (PEPCID) TABLET PO SCH ×2 (09:00→20:47)
[2021-07-29] MEDS: lisINopril 20 MG (PRINIVIL) TABLET PO SCH (09:01)
[2021-07-29] MEDS: metFORMIN XR 500 MG (GLUCOPHAGE XR) TAB PO SCH ×2 (09:01→17:30)
[2021-07-29] MEDS: amLODIPine 5 MG (NORVASC) TAB PO SCH ×2 (09:01→20:48)
[2021-07-29] MEDS: PHENYTOIN 100 MG (DILANTIN) CAP PO SCH ×3 (09:01→20:48)
[2021-07-29] MEDS: FUROSEMIDE 20 MG (LASIX) TAB PO SCH (09:01)
[2021-07-29] MEDS: ASPIRIN E.C. 81 MG (ECOTRIN) TAB PO SCH (09:02)
[2021-07-29] MEDS: CALCIUM CARB + VIT D 600 MG (CALCARB + D) TAB PO SCH ×2 (09:02→17:30)
[2021-07-29] MEDS: [UNRECOGNIZED DRUG - REMARK] PO SCH (09:02)
[2021-07-29] MEDS: DOCUSATE SODIUM 100 MG (COLACE) CAP PO SCH (09:08)
[2021-07-29] MEDS: polyethylene glycoL POWDER 17 GM (MIRALAX) PACK PO SCH ×2 (09:09→19:53)
[2021-07-29] MEDS: SENNA W/DOCUSATE (SENOKOT S) TABLET PO SCH ×2 (09:09→19:54)
[2021-07-29] MEDS: BRIMONIDINE 0.2% (ALPHAGAN) OPHTH SOLN 5 ML BTL OS SCH ×2 (09:10→20:46)
--- NOTE | 2021-07-29 10:10 | Physical Therapy Daily Note ---
PT Daily Note-Current Subjective Pt sitting up in recliner chair upon arrival to room, agreeable to PT treatment. Reports that he was up with diarrhea all night, but agreeable to session Appearance Following session, pt up in bathroom, with instructions to use call cord when finished, pt agrees to not attempt to stand until assistance comes. All needs met Mental Status Patient Orientation: Person, Place, Situation Transfers SCALE: Activities may be completed with or without assistive devices. 7-Rhxbdhgwtx-rsmxinh completes the activity by him/herself with no assistance from a helper. 5-Set-up or Clean-up Assistance-helper sets up or cleans up; patient completes activity. [place] assists only prior to or following the activity. 4-Supervision or Touching Assistance-helper provides verbal cues and/or touching/steadying and/or contact guard assistance as patient completes activity. Assistance may be provided throughout the activity or intermittently. 3-Partial/Moderate Assistance-helper does LESS THAN HALF the effort. [place] lifts, holds or supports trunk or limbs, but provides less than half the effort. 2-Substantial/Maximal Assistance-helper does MORE THAN HALF the effort. [place] lifts or holds trunk or limbs and provides more than half the effort. 5-Yszzvabme-erxvlb does ALL the effort. Patient does none of the effort to complete the activity. Or, the assistance of 2 or more helpers is required for the patient to complete the activity. If activity was not attempted, code reason: 7-Patient Refused. 9-Not Applicable-not attempted and the patient did not perform the activity before the current illness, exacerbation or injury. 10-Not Attempted due to Environmental Limitations-(lack of equipment, weather restraints, etc.). 88-Not Attempted due to Medical Conditions or Safety Concerns. Sit to Stand (QC): 4 Toilet Transfer (QC): 4 Weight Bearing Full Weight Bearing Full Weight Bearing Gait Training Distance: 150' x 2 Walk 10 feet (QC): 4 Walk 50 ft with 2 Turns(QC): 4 Walk 150 ft (QC): 4 Gait Assistive Device: FWW Occasional drag of R toe with fatigue. Pt attempting to ambulate quickly to return to bathroom Exercises NuStep Minutes: 10 NuStep Workload: 4 Treatments Pt ambulated 150' to therapy gym. Completed NuStep x 10m and returned to room, and left on toilet, as pt requests need to have a BM Assessment Current Status: Good Progress Pt tolerated well. Session limited due to pts upset stomach this date. PT Short Term Goals Short Term Goals Time Frame: Aug 01, 2021 Roll Left & Right: 6 Sit to lyin Lying to sitting on side of be: 5 Sit to stand: 4 Chair/lli-yw-dwvvg transfer: 4 Walk 10 feet: 4 Walk 50 feet with two turns: 4 Walk 150 feet: 4 PT Lease Picker Goals Prison Goals PT Lease Picker Goals Time Frame: Aug 15, 2021 Roll Left & Right (QC): 6 Sit to Lying (QC): 6 Lying-Sitting on Side/Bed(QC): 6 Sit to Stand (QC): 5 Chair/Xtm-qv-Lpqbh Xfer(QC): 5 Toilet Transfer (QC): 5 Car Transfer (QC): 5 Does the Patient Walk: Yes Walk 10 feet (QC): 5 Walk 50ft with 2 Turns (QC): 5 Walk 150 ft (QC): 5 Walking 10ft on Uneven Surface: 4 1 Step (curb) (QC): 4 4 Steps (QC): 4 12 Steps (QC): 88 Picking up an Object (QC): 4 Wheel 50 feet with 2 turns (QC: 9 Wheel 150 feet: 9 PT Plan Problem List Problem List: Activity Tolerance, Functional Strength, Safety, Balance, Gait, Transfer, Bed Mobility, ROM Treatment/Plan Treatment Plan: Continue Plan of Care Treatment Plan: Bed Mobility, Education, Functional Activity Adriana, Functional Strength, Group Therapy, Gait, Safety, Therapeutic Exercise, Transfers Treatment Duration: Aug 15, 2021 Frequency: At least 5 of 7 days/Wk (IRF) Estimated Hrs Per Day: 1.5 hours per day Patient and/or Family Agrees t: Yes Time/GCodes Time In: 925 Time Out: 948 Total Billed Treatment Time: 23 Total Billed Treatment 1 visit EX x 2 (23') MARGUERITE CORREIA PT Jul 29, 2021 10:10
[2021-07-29] MEDS: ENOXAPARIN 40 MG/0.4 ML (LOVENOX) SYR SC SCH (15:42)
[2021-07-29 20:23] VITALS: BP 144/65
[2021-07-29] MEDS: LATANOPROST 0.005% (XALATAN) OPHTH SOLN 2.5 ML OU SCH (20:46)
[2021-07-29] MEDS: LACTOBACILLUS ACIDOPHILUS (PROBIOTIC) CAPSULE PO SCH (20:47)
[2021-07-29] MEDS: MELATONIN 3 MG TABLET PO SCH (20:47)
[2021-07-29] MEDS: PHENobarbital 64.8 MG (1 GRAIN) TAb PO SCH (20:48)
[2021-07-29] MEDS: TAMSULOSIN 0.4 MG (FLOMAX) CAP PO SCH (20:48)
[2021-07-30] MEDS: LEVOTHYROXINE 100 MCG (LEVOTHROID) TAB PO SCH (06:20)
[2021-07-30] MEDS: inSUlin ASPART (NovoLOG) 1 UNIT/0.01 ML (CHARGE PER UNIT) SC SCH ×4 (06:23→20:39)
[2021-07-30 07:30] VITALS: BP 154/80
--- NOTE | 2021-07-30 08:07 | PM&R Progress Note ---
Subjective HPI/CC On Admission Date Seen by Provider: Jul 30, 2021 Time Seen by Provider: 11:00 Subjective/Events-last exam 07/30/2021: No major issues Took a shower today No diarrhea anymore Oxygen while napping and sleeping 07/29/2021: Patient doing well Loose stools continue May need Questran 93% on room air Participating in therapy 07/28/2021: Patient doing really well today Loose bowels x2 1 L of oxygen last night Once again discussed his noncompliance with CPAP Appreciate pulmonary consult yesterday 07/27/2021: Patient doing really well Pulmonary consult reviewed and I conferred with the physician who recommended restarting CPAP Bowels moved today Incontinent of bowel and bladder at times but that is a chronic issue since stroke 07/26/2021: No major issues Declines wearing CPAP Has some PTSD noted during conversation Incontinent of bowel and bladder at times We will discontinue the Hep-Lock Trulicity will be brought in by his today Finishing up with Decadron Review of Systems General: Fatigue, Malaise Objective Exam Vital Signs Vital Signs Date Time Temp Pulse Resp B/P (MAP) Pulse Ox O2 Delivery O2 Flow Rate FiO2 07/30/21 20:20 93 Room Air 07/30/21 20:00 36.8 70 20 164/72 (102) 07/28/21 20:38 1.00 Capillary Refill : General Appearance: No Apparent Distress, WD/WN, Chronically ill, Obese HEENT: PERRL/EOMI, Normal ENT Inspection, Pharynx Normal Neck: Full Range of Motion, Normal Inspection, Non Tender, Supple, Carotid Bruit Respiratory: Chest Non Tender, Normal Breath Sounds, No Accessory Muscle Use, No Respiratory Distress, Decreased Breath Sounds Cardiovascular: Regular Rate, Rhythm, No Edema, No Gallop, No JVD, No Murmur, Normal Peripheral Pulses Gastrointestinal: Normal Bowel Sounds, No Organomegaly, No Pulsatile Mass, Non Tender, Soft Back: Normal Inspection, No CVA Tenderness, No Vertebral Tenderness Extremity: Normal Capillary Refill, Normal Inspection, Normal Range of Motion, Non Tender, No Calf Tenderness, No Pedal Edema Neurologic/Psychiatric: Alert, 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 FIM Transfers Therapy Code Descriptions/Definitions Functional [place] Measure: 0=Not Assessed/NA 4=Minimal Assistance 1=Total Assistance 5=Supervision or Setup 2=Maximal Assistance 6=Modified [place] 3=Moderate Assistance 7=Complete IndependenceSCALE: Activities may be completed with or without assistive devices. 3-Iyontnxiiu-nfdjnfu completes the activity by him/herself with no assistance from a helper. 5-Set-up or Clean-up Assistance-helper sets up or cleans up; patient completes activity. [place] assists only prior to or following the activity. 4-Supervision or Touching Assistance-helper provides verbal cues and/or touching/steadying and/or contact guard assistance as patient completes activity. Assistance may be provided throughout the activity or intermittently. 3-Partial/Moderate Assistance-helper does LESS THAN HALF the effort. [place] lif ts, holds or supports trunk or limbs, but provides less than half the effort. 2-Substantial/Maximal Assistance-helper does MORE THAN HALF the effort. [place] lifts or holds trunk or limbs and provides more than half the effort. 6-Auorbkwon-porufh does ALL the effort. Patient does none of the effort to complete the activity. Or, the assistance of 2 or more helpers is required for the patient to complete the activity. If activity was not attempted, code reason: 7-Patient Refused. 9-Not Applicable-not attempted and the patient did not perform the activity before the current illness, exacerbation or injury. 10-Not Attempted due to Environmental Limitations-(lack of equipment, weather restraints, etc.). 88-Not Attempted due to Medical Conditions or Safety Concerns. Roll Left to Right (QC): 6 Sit to Lying (QC): 4 Sit to Stand (QC): 4 Chair/Ezf-mo-Yyazq Xfer(QC): 4 Car Transfer (QC): 4 Gait Training Does the Patient Walk?: Yes Distance: 150' x 2 Walk 10 feet (QC): 4 Walk 50 ft with 2 Turns(QC): 4 Walk 150 ft (QC): 4 Walking 10ft/uneven surface-QC: 4 Gait Persons Needed: 1 Gait Assistive Device: FWW Wheelchair Training Does the Pt Use a Wheelchair?: No Distance: 100' Wheel 50 ft with 2 turns (QC): 4 Wheel 150 ft (QC): 88 Type of Wheelchair: Manual Stair Training Stair Training: Handrails/: 2 handrails #of Steps: 1 1 Step (curb) (QC): 4 4 Steps (QC): 88 12 Steps (QC): 88 Balance Picking up an Object (QC): 88 ADL-Treatment Eating (QC): 5 Oral Hygiene (QC): 3 (steadying assist) Bathing Location: L Arm, R Arm, L Upper Leg, R Upper Leg, L Lower Leg (including foot), R Lower Leg (including foot), Chest, Abdomen, Buttocks, Perineal Area Shower/Bathe Self (QC): 4 (CGA) Upper Body Dressing (QC): 4 (sba) Lower Body Dressing (QC): 4 (CGA) On/Off Footwear (QC): 3 (Mod) Toileting Hygiene (QC): 3 Toilet Transfer (QC): 4 Assessment/Plan Assessment and Plan Assess & Plan/Chief Complaint Assessment: Post Covid syndrome Hypoxia Obesity Diabetes Hypertension Hyperlipidemia Prior stroke with left-sided hemiparesis Plan: Supportive care Oxygen supplementation Aggressive therapy 07/26/2021: Continue supportive care Monitor for hypoxia 07/27/2021: Pulmonary consult appreciated Monitor incontinence Maintain aggressive therapy 07/28/2021: Monitor loose stools Oxygen at night 07/29/2021: Supportive care Monitor loose stools 07/30/2021: Continue aggressive therapy Maintain oxygen (1) Post-COVID syndrome (2) Hypertension (3) BPH (benign prostatic hyperplasia) (4) Diabetes (5) History of stroke HANNA GARCIA DO Jul 30, 2021 08:07
[2021-07-30] MEDS: lisINopril 20 MG (PRINIVIL) TABLET PO SCH (08:17)
[2021-07-30] MEDS: metFORMIN XR 500 MG (GLUCOPHAGE XR) TAB PO SCH ×2 (08:17→17:08)
[2021-07-30] MEDS: PHENYTOIN 100 MG (DILANTIN) CAP PO SCH ×3 (08:18→20:38)
[2021-07-30] MEDS: FUROSEMIDE 20 MG (LASIX) TAB PO SCH (08:18)
[2021-07-30] MEDS: ASPIRIN E.C. 81 MG (ECOTRIN) TAB PO SCH (08:18)
[2021-07-30] MEDS: FAMOTIDINE 20 MG (PEPCID) TABLET PO SCH ×2 (08:18→20:37)
[2021-07-30] MEDS: amLODIPine 5 MG (NORVASC) TAB PO SCH ×2 (08:18→20:38)
[2021-07-30] MEDS: CALCIUM CARB + VIT D 600 MG (CALCARB + D) TAB PO SCH ×2 (08:18→17:08)
[2021-07-30] MEDS: [UNRECOGNIZED DRUG - REMARK] PO SCH (08:19)
[2021-07-30] MEDS: SENNA W/DOCUSATE (SENOKOT S) TABLET PO SCH ×2 (08:20→19:41)
[2021-07-30] MEDS: polyethylene glycoL POWDER 17 GM (MIRALAX) PACK PO SCH ×2 (08:20→19:36)
[2021-07-30] MEDS: BRIMONIDINE 0.2% (ALPHAGAN) OPHTH SOLN 5 ML BTL OS SCH ×2 (08:21→20:32)
[2021-07-30] MEDS: ENOXAPARIN 40 MG/0.4 ML (LOVENOX) SYR SC SCH (16:00)
[2021-07-30 20:00] VITALS: BP 164/72
[2021-07-30] MEDS: LATANOPROST 0.005% (XALATAN) OPHTH SOLN 2.5 ML OU SCH (20:32)
[2021-07-30] MEDS: PHENobarbital 64.8 MG (1 GRAIN) TAb PO SCH (20:37)
[2021-07-30] MEDS: LACTOBACILLUS ACIDOPHILUS (PROBIOTIC) CAPSULE PO SCH (20:38)
[2021-07-30] MEDS: MELATONIN 3 MG TABLET PO SCH (20:38)
[2021-07-30] MEDS: TAMSULOSIN 0.4 MG (FLOMAX) CAP PO SCH (20:38)
[2021-07-31 06:06] LABS: BASOPHILS % (AUTO) 0 % (0-10); EOSINOPHILS # (AUTO) 0.2 10^3/uL (0.0-0.3); EOSINOPHILS % (AUTO) 3 % (0-10); HEMATOCRIT 30 % (40-54); HEMOGLOBIN 10.2 g/dL (13.3-17.7); LYMPHOCYTES # (AUTO) 2.3 10^3/uL (1.0-4.0); LYMPHOCYTES % (AUTO) 37 % (12-44); MEAN CORPUSCULAR HEMOGLOBIN 31 pg (25-34); MEAN CORPUSCULAR HGB CONC 34 g/dL (32-36); MEAN CORPUSCULAR VOLUME 93 fL (80-99); MEAN PLATELET VOLUME 8.9 fL (9.0-12.2); MONOCYTES # (AUTO) 0.6 10^3/uL (0.0-1.0); MONOCYTES % (AUTO) 10 % (0-12); NEUTROPHILS # (AUTO) 3.1 10^3/uL (1.8-7.8); NEUTROPHILS % (AUTO) 49 % (42-75); PLATELET COUNT 197 10^3/uL (130-400); WHITE BLOOD COUNT 6.3 10^3/uL (4.3-11.0)
[2021-07-31 06:18] LABS: ALBUMIN 3.3 GM/DL (3.2-4.5); POTASSIUM 4.3 MMOL/L (3.6-5.0)
[2021-07-31] MEDS: inSUlin ASPART (NovoLOG) 1 UNIT/0.01 ML (CHARGE PER UNIT) SC SCH ×4 (06:20→20:22)
[2021-07-31] MEDS: LEVOTHYROXINE 100 MCG (LEVOTHROID) TAB PO SCH (06:20)
[2021-07-31 06:21] LABS: TOTAL PROTEIN 6.3 GM/DL (6.4-8.2)
[2021-07-31 06:22] LABS: BILIRUBIN,TOTAL 0.2 MG/DL (0.1-1.0)
[2021-07-31 06:24] LABS: CREATININE SERUM 0.93 MG/DL (0.60-1.30)
[2021-07-31 08:00] VITALS: BP 143/65
[2021-07-31] MEDS: ASPIRIN E.C. 81 MG (ECOTRIN) TAB PO SCH (08:12)
[2021-07-31] MEDS: FUROSEMIDE 20 MG (LASIX) TAB PO SCH (08:12)
[2021-07-31] MEDS: CALCIUM CARB + VIT D 600 MG (CALCARB + D) TAB PO SCH ×2 (08:13→17:17)
[2021-07-31] MEDS: FAMOTIDINE 20 MG (PEPCID) TABLET PO SCH ×2 (08:13→20:06)
[2021-07-31] MEDS: lisINopril 20 MG (PRINIVIL) TABLET PO SCH (08:13)
[2021-07-31] MEDS: metFORMIN XR 500 MG (GLUCOPHAGE XR) TAB PO SCH ×2 (08:13→17:17)
[2021-07-31] MEDS: SENNA W/DOCUSATE (SENOKOT S) TABLET PO SCH ×2 (08:13→20:06)
[2021-07-31] MEDS: PHENYTOIN 100 MG (DILANTIN) CAP PO SCH ×3 (08:14→20:05)
[2021-07-31] MEDS: BRIMONIDINE 0.2% (ALPHAGAN) OPHTH SOLN 5 ML BTL OS SCH ×2 (08:14→20:08)
[2021-07-31] MEDS: polyethylene glycoL POWDER 17 GM (MIRALAX) PACK PO SCH ×2 (08:15→20:10)
[2021-07-31] MEDS: [UNRECOGNIZED DRUG - REMARK] PO SCH (08:15)
[2021-07-31] MEDS: amLODIPine 5 MG (NORVASC) TAB PO SCH ×2 (08:17→20:06)
--- NOTE | 2021-07-31 08:59 | PM&R Progress Note ---
Subjective HPI/CC On Admission Date Seen by Provider: Jul 31, 2021 Time Seen by Provider: 09:00 Subjective/Events-last exam 07/31/2021: Pt doing well Right ear pain and will consult Dr. Bejarano who will see him tomorrow Sodium level 133 Bowels moved on 07/29/21, laxatives given 07/30/2021: No major issues Took a shower today No diarrhea anymore Oxygen while napping and sleeping 07/29/2021: Patient doing well Loose stools continue May need Questran 93% on room air Participating in therapy 07/28/2021: Patient doing really well today Loose bowels x2 1 L of oxygen last night Once again discussed his noncompliance with CPAP Appreciate pulmonary consult yesterday 07/27/2021: Patient doing really well Pulmonary consult reviewed and I conferred with the physician who recommended restarting CPAP Bowels moved today Incontinent of bowel and bladder at times but that is a chronic issue since stroke 07/26/2021: No major issues Declines wearing CPAP Has some PTSD noted during conversation Incontinent of bowel and bladder at times We will discontinue the Hep-Lock Trulicity will be brought in by his today Finishing up with Decadron Review of Systems General: Fatigue, Malaise HEENT: Other (Right ear pain) Pulmonary: Dyspnea Neurological: Weakness Objective Exam Vital Signs Vital Signs Date Time Temp Pulse Resp B/P (MAP) Pulse Ox O2 Delivery O2 Flow Rate FiO2 07/31/21 21:31 Room Air 07/31/21 20:10 36.6 68 20 157/72 (100) 99 07/28/21 20:38 1.00 Capillary Refill : General Appearance: No Apparent Distress, WD/WN, Chronically ill, Obese HEENT: PERRL/EOMI, Normal ENT Inspection, Pharynx Normal Neck: Full Range of Motion, Normal Inspection, Non Tender, Supple, Carotid Bruit Respiratory: Chest Non Tender, Normal Breath Sounds, No Accessory Muscle Use, No Respiratory Distress, Decreased Breath Sounds Cardiovascular: Regular Rate, Rhythm, No Edema, No Gallop, No JVD, No Murmur, Normal Peripheral Pulses Gastrointestinal: Normal Bowel Sounds, No Organomegaly, No Pulsatile Mass, Non Tender, Soft Back: Normal Inspection, No CVA Tenderness, No Vertebral Tenderness Extremity: Normal Capillary Refill, Normal Inspection, Normal Range of Motion, Non Tender, No Calf Tenderness, No Pedal Edema Neurologic/Psychiatric: Alert, Oriented x3, 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 FIM Transfers Therapy Code Descriptions/Definitions Functional [place] Measure: 0=Not Assessed/NA 4=Minimal Assistance 1=Total Assistance 5=Supervision or Setup 2=Maximal Assistance 6=Modified [place] 3=Moderate Assistance 7=Complete IndependenceSCALE: Activities may be completed with or without assistive devices. 6-Okewqequup-nyhwdjn completes the activity by him/herself with no assistance from a helper. 5-Set-up or Clean-up Assistance-helper sets up or cleans up; patient completes activity. [place] assists only prior to or following the activity. 4-Supervision or Touching Assistance-helper provides verbal cues and/or to uching/steadying and/or contact guard assistance as patient completes activity. Assistance may be provided throughout the activity or intermittently. 3-Partial/Moderate Assistance-helper does LESS THAN HALF the effort. [place] lifts, holds or supports trunk or limbs, but provides less than half the effort. 2-Substantial/Maximal Assistance-helper does MORE THAN HALF the effort. [place] lifts or holds trunk or limbs and provides more than half the effort. 8-Pbmdzkdtf-ewpyxj does ALL the effort. Patient does none of the effort to complete the activity. Or, the assistance of 2 or more helpers is required for the patient to complete the activity. If activity was not attempted, code reason: 7-Patient Refused. 9-Not Applicable-not attempted and the patient did not perform the activity before the current illness, exacerbation or injury. 10-Not Attempted due to Environmental Limitations-(lack of equipment, weather restraints, etc.). 88-Not Attempted due to Medical Conditions or Safety Concerns. Roll Left to Right (QC): 6 Sit to Lying (QC): 4 Sit to Stand (QC): 4 Chair/Den-mt-Wauur Xfer(QC): 4 Car Transfer (QC): 4 Gait Training Does the Patient Walk?: Yes Distance: 150' x 2 Walk 10 feet (QC): 4 Walk 50 ft with 2 Turns(QC): 4 Walk 150 ft (QC): 4 Walking 10ft/uneven surface-QC: 4 Gait Persons Needed: 1 Gait Assistive Device: FWW Wheelchair Training Does the Pt Use a Wheelchair?: No Distance: 100' Wheel 50 ft with 2 turns (QC): 4 Wheel 150 ft (QC): 88 Type of Wheelchair: Manual Stair Training Stair Training: Handrails/: 2 handrails #of Steps: 1 1 Step (curb) (QC): 4 4 Steps (QC): 88 12 Steps (QC): 88 Balance Picking up an Object (QC): 88 ADL-Treatment Eating (QC): 5 Oral Hygiene (QC): 3 (steadying assist) Bathing Location: L Arm, R Arm, L Upper Leg, R Upper Leg, L Lower Leg (including foot), R Lower Leg (including foot), Chest, Abdomen, Buttocks, Perineal Area Shower/Bathe Self (QC): 4 (CGA) Upper Body Dressing (QC): 4 (sba) Lower Body Dressing (QC): 4 (CGA) On/Off Footwear (QC): 3 (Mod) Toileting Hygiene (QC): 3 Toilet Transfer (QC): 4 Assessment/Plan Assessment and Plan Assess & Plan/Chief Complaint Assessment: Post Covid syndrome Hypoxia Obesity Diabetes Hypertension Hyperlipidemia Prior stroke with left-sided hemiparesis Right ear pain consulted Dr. Bejarano 07/31/2021 Plan: Supportive care Oxygen supplementation Aggressive therapy 07/26/2021: Continue supportive care Monitor for hypoxia 07/27/2021: Pulmonary consult appreciated Monitor incontinence Maintain aggressive therapy 07/28/2021: Monitor loose stools Oxygen at night 07/29/2021: Supportive care Monitor loose stools 07/30/2021: Continue aggressive therapy Maintain oxygen 07/31/2021: Dr. Bejarano consult right ear pain (1) Post-COVID syndrome (2) Hypertension (3) BPH (benign prostatic hyperplasia) (4) Diabetes (5) History of stroke HANNA GARCIA DO Jul 31, 2021 08:59
--- NOTE | 2021-07-31 09:25 | Occupational Ther Daily Note ---
OT Current Status-Daily Note Subjective Pt denies any pain, requests shower. Appearance Pt left sitting in chair, all needs met at OT departure. ADL-Treatment Therapy Code Descriptions/Definitions Functional [place] Measure: 0=Not Assessed/NA 4=Minimal Assistance 1=Total Assistance 5=Supervision or Setup 2=Maximal Assistance 6=Modified [place] 3=Moderate Assistance 7=Complete IndependenceSCALE: Activities may be completed with or without assistive devices. 3-Xrwfijlhzu-iznqqhy completes the activity by him/herself with no assistance from a helper. 5-Set-up or Clean-up Assistance-helper sets up or cleans up; patient completes activity. [place] assists only prior to or following the activity. 4-Supervision or Touching Assistance-helper provides verbal cues and/or touching/steadying and/or contact guard assistance as patient completes activity. Assistance may be provided throughout the activity or intermittently. 3-Partial/Moderate Assistance-helper does LESS THAN HALF the effort. [place] lifts, holds or supports trunk or limbs, but provides less than half the effort. 2-Substantial/Maximal Assistance-helper does MORE THAN HALF the effort. [place] lifts or holds trunk or limbs and provides more than half the effort. 0-Imwnqehun-fkhmyz does ALL the effort. Patient does none of the effort to complete the activity. Or, the assistance of 2 or more helpers is required for the patient to complete the activity. If activity was not attempted, code reason: 7-Patient Refused. 9-Not Applicable-not attempted and the patient did not perform the activity before the current illness, exacerbation or injury. 10-Not Attempted due to Environmental Limitations-(lack of equipment, weather restraints, etc.). 88-Not Attempted due to Medical Conditions or Safety Concerns. Oral Hygiene (QC): 4 Bathing Location: L Arm, R Arm, L Upper Leg, R Upper Leg, L Lower Leg (including foot), R Lower Leg (including foot), Chest, Abdomen, Buttocks, Perineal Area Shower/Bathe Self (QC): 3 (1 mild LOB, needing Min a for recovery when standing. ) Upper Body Dressing (QC): 5 Lower Body Dressing (QC): 4 On/Off Footwear: 5 Toileting Hygiene (QC): 4 Toilet Transfer (QC): 4 Shower performed; majority completed in sitting. He stood only to wash gael area/buttocks. Posterior LOB in standing when removing BUE support from grab bar. Required min a to maintain upright posture. Pt reminded to keep one hand on grab bar at all times when standing. Extra time to initiate use of soap, but no cues needed today. He is able to wash Left foot with use of cross over method, requires UE's to lift and cross. Pt unable to lift RLE due to weakness and impaired flexibility. Pt able to self initiate use of LHS this date in order to reach/wash foot. Clothing donned seated on shower bench. Pt utilizes figure 4 method to thread LLE. Unable to lift RLE high enough off floor this date secondary to weakness. Post instruction, pt able to use filling mixer to thread RLE into clothing. "I don't want to admit it, but that was much easier." Close sup for safety as he managed clothing up to waist in standing. Good recall to alternate single UE support on grab bar/walker. Due to weakness, pt more willing to try sock aid today. Min verbal cues for correct use, but no physical assist. He stood at the sink with close supervision for grooming tasks. Education OT Patient Education: Correct positioning, Energy conservation, Modified ADL techniques, Progress toward Goal/Update tx plan, Purpose of tx/functional activities, Rehab process, Use of adapted equipment Teaching Recipient: Patient Teaching Methods: Demonstration, Discussion Response to Teaching: Verbalize Understanding, Return Demonstration, Reinforcement Needed OT Short Term Goals Short Term Goals Time Frame: Aug 01, 2021 Eatin Oral hygiene: 5 Toileting hygiene: 4 (CGA) Shower/bathe self: 3 Upper body dressin Lower body dressin (CGA) Putting on/taking off footwear: 4 OT Skilled Nursing Goals Skilled Nursing Goals Time Frame: Aug 11, 2021 Eating (QC): 6 Oral Hygiene (QC): 6 Toileting Hygiene (QC): 4 Shower/Bathe Self (QC): 4 Upper Body Dressing (QC): 4 Lower Body Dressing (QC): 4 On/Off Footwear (QC): 4 1=Demonstrate adherence to instructed precautions during ADL tasks. 2=Patient will verbalize/demonstrate understanding of assistive devices/modifications for ADL. 3=Patient will improve strength/tolerance for activity to enable patient to perform ADL's. OT Education/Plan Problem List/Assessment Assessment: Decreased Activ Tolerance, Decreased Safety Aware, Decreased UE Strength, Impaired Cognition, Impaired Funct Balance, Impaired Self-Care Skills Discharge Recommendations Plan/Recommendations: Continue POC Equpiment Recommendations-D/C: Bath Chair, Trestle Mainternance Laborer, Sock Aide Target Placement Home health Treatment Plan/Plan of Care Treatment,Training & Education: Yes Patient would benefit from OT for education, treatment and training to promote independence in ADL's, mobility, safety and/or upper extremity function for ADL's. Plan of Care: ADL Retraining, Caregiver Training, Functional Mobility, Group Exercise/Act as Ind, UE Funct Exercise/Act, UE Neuromus Re-Ed/Coord, W/C Management Training Treatment Duration: Aug 11, 2021 Frequency: At least 5 of 7 days/Wk (IRF) Estimated Hrs Per Day: 1.5 hours per day Agreement: Yes Rehab Potential: Fair Time/GCodes Start Time: 08:00 Stop Time: 09:30 Total Time Billed (hr/min): 90 Billed Treatment Time 1 visit, ADL x6 Arcelia Deleon OT Jul 31, 2021 09:25
--- NOTE | 2021-07-31 10:32 | Physical Therapy Daily Note ---
PT Daily Note-Current Subjective Pt in recliner w/ nursing agency manager in room upon arrival and agrees to tx. Pt states he feels fatigued today d/t having low blood sugar earlier. Pt says he received laxative prior this am. Mental Status Patient Orientation: Person, Place, Time, Situation Transfers SCALE: Activities may be completed with or without assistive devices. 1-Orfdyfyuxe-qzjmlkf completes the activity by him/herself with no assistance from a helper. 5-Set-up or Clean-up Assistance-helper sets up or cleans up; patient completes a ctivity. [place] assists only prior to or following the activity. 4-Supervision or Touching Assistance-helper provides verbal cues and/or touching/steadying and/or contact guard assistance as patient completes activity. Assistance may be provided throughout the activity or intermittently. 3-Partial/Moderate Assistance-helper does LESS THAN HALF the effort. [place] lifts, holds or supports trunk or limbs, but provides less than half the effort. 2-Substantial/Maximal Assistance-helper does MORE THAN HALF the effort. [place] lifts or holds trunk or limbs and provides more than half the effort. 6-Livexrctq-kfpnsf does ALL the effort. Patient does none of the effort to complete the activity. Or, the assistance of 2 or more helpers is required for the patient to complete the activity. If activity was not attempted, code reason: 7-Patient Refused. 9-Not Applicable-not attempted and the patient did not perform the activity before the current illness, exacerbation or injury. 10-Not Attempted due to Environmental Limitations-(lack of equipment, weather restraints, etc.). 88-Not Attempted due to Medical Conditions or Safety Concerns. Sit to Stand (QC): 5 Weight Bearing Full Weight Bearing Full Weight Bearing Gait Training Does the Patient Walk?: Yes Distance: 200', 150' Walk 10 feet (QC): 4 Walk 50 ft with 2 Turns(QC): 4 Walk 150 ft (QC): 4 Gait Persons Needed: 1 Gait Assistive Device: FWW VC for L LE clearance and to not cross feet w/ turning. Exercises NuStep Minutes: 15 NuStep Workload: 5 Treatments Pt sit to stand from recliner SBA and request to use BR. Pt able to doff/don pants, clean self, and wash hands SBA w/ no LOB. Pt amb 200' to therapy gym and complete NuStep. Pt request to use BR at this time, pt amb 150' back to room. When turning back to room pt crossed feet, VC given to correct. Pt then enters room, walks passed BR, completes 180 degree turn and enters BR. Pt corrects scissoring w/ turns at this time. Pt doffs/dons pants, cleans self, and washes hands SBA. Pt then amb throughout room, navigating around objects, reaching for cones at various heights. [facility] and was left with all needs met, call light in hand. Assessment Current Status: Good Progress Pt increasing strength, endurance, and balance. Pt motivated to get better and go home. PT Short Term Goals Short Term Goals Time Frame: Aug 01, 2021 Roll Left & Right: 6 Sit to lyin Lying to sitting on side of be: 5 Sit to stand: 4 Chair/xsj-fd-ydjbr transfer: 4 Walk 10 feet: 4 Walk 50 feet with two turns: 4 Walk 150 feet: 4 PT Correction Goals Correction Goals PT Metrology Technician Goals Time Frame: Aug 15, 2021 Roll Left & Right (QC): 6 Sit to Lying (QC): 6 Lying-Sitting on Side/Bed(QC): 6 Sit to Stand (QC): 5 Chair/Ups-ip-Qhsse Xfer(QC): 5 Toilet Transfer (QC): 5 Car Transfer (QC): 5 Does the Patient Walk: Yes Walk 10 feet (QC): 5 Walk 50ft with 2 Turns (QC): 5 Walk 150 ft (QC): 5 Walking 10ft on Uneven Surface: 4 1 Step (curb) (QC): 4 4 Steps (QC): 4 12 Steps (QC): 88 Picking up an Object (QC): 4 Wheel 50 feet with 2 turns (QC: 9 Wheel 150 feet: 9 PT Plan Treatment/Plan Treatment Plan: Continue Plan of Care Treatment Plan: Bed Mobility, Education, Functional Activity Adriana, Functional Strength, Group Therapy, Gait, Safety, Therapeutic Exercise, Transfers Treatment Duration: Aug 15, 2021 Frequency: At least 5 of 7 days/Wk (IRF) Estimated Hrs Per Day: 1.5 hours per day Patient and/or Family Agrees t: Yes Time/GCodes Time In: 1000 Time Out: 1100 Total Billed Treatment Time: 60 Total Billed Treatment 1, FA x2, EX, GT GRIGSBY,[facility] BLOCK[facility] Jul 31, 2021 10:32
--- NOTE | 2021-07-31 13:34 | Physical Therapy Daily Note ---
PT Daily Note-Current Subjective Pt in recliner and agrees to tx. Pt has no c/o pain at this time Mental Status Patient Orientation: Person, Place, Situation Transfers SCALE: Activities may be completed with or without assistive devices. 8-Zkrznyvnbc-ltadgyp completes the activity by him/herself with no assistance from a helper. 5-Set-up or Clean-up Assistance-helper sets up or cleans up; patient completes a ctivity. [place] assists only prior to or following the activity. 4-Supervision or Touching Assistance-helper provides verbal cues and/or touching/steadying and/or contact guard assistance as patient completes activity. Assistance may be provided throughout the activity or intermittently. 3-Partial/Moderate Assistance-helper does LESS THAN HALF the effort. [place] lifts, holds or supports trunk or limbs, but provides less than half the effort. 2-Substantial/Maximal Assistance-helper does MORE THAN HALF the effort. [place] lifts or holds trunk or limbs and provides more than half the effort. 2-Edeaisony-vaowev does ALL the effort. Patient does none of the effort to complete the activity. Or, the assistance of 2 or more helpers is required for the patient to complete the activity. If activity was not attempted, code reason: 7-Patient Refused. 9-Not Applicable-not attempted and the patient did not perform the activity before the current illness, exacerbation or injury. 10-Not Attempted due to Environmental Limitations-(lack of equipment, weather restraints, etc.). 88-Not Attempted due to Medical Conditions or Safety Concerns. Sit to Stand (QC): 5 Weight Bearing Full Weight Bearing Full Weight Bearing Gait Training Does the Patient Walk?: Yes Distance: 150' x2 Walk 10 feet (QC): 4 Walk 50 ft with 2 Turns(QC): 4 Walk 150 ft (QC): 4 Gait Assistive Device: FWW Exercises Standing: Hamstring curls, Heel/toe raises, Marching, Mini squats, Retro gait, Sit to Stand, Side steps, Weight shifts Standing Reps: 10 Treatments Pt sit to stand from recliner and amb 150' to therapy gym. Pt completes standing ex in // bars. Pt completes LAQ 4 minutes. Pt then stands on AirEx, holds 1 minute w/ BUE support and CGAfollowed by RB. Pt then stands back on AirEx and completes functional reaching and tossing activity with rings approx 2 minutes, supported only by L UE and CGA. Pt then stands on AirEx 90 seconds unsupported from BUE. Pt amb back to recliner in room and left with all needs met, call light in hand. Assessment Current Status: Good Progress Pt progressing well, increasing endurance, strength, and balance PT Short Term Goals Short Term Goals Time Frame: Aug 01, 2021 Roll Left & Right: 6 Sit to lyin Lying to sitting on side of be: 5 Sit to stand: 4 Chair/xdw-hn-blrby transfer: 4 Walk 10 feet: 4 Walk 50 feet with two turns: 4 Walk 150 feet: 4 PT Professor Of Languages Goals Professor Of Languages Goals PT Detention Goals Time Frame: Aug 15, 2021 Roll Left & Right (QC): 6 Sit to Lying (QC): 6 Lying-Sitting on Side/Bed(QC): 6 Sit to Stand (QC): 5 Chair/Psy-gz-Ufxir Xfer(QC): 5 Toilet Transfer (QC): 5 Car Transfer (QC): 5 Does the Patient Walk: Yes Walk 10 feet (QC): 5 Walk 50ft with 2 Turns (QC): 5 Walk 150 ft (QC): 5 Walking 10ft on Uneven Surface: 4 1 Step (curb) (QC): 4 4 Steps (QC): 4 12 Steps (QC): 88 Picking up an Object (QC): 4 Wheel 50 feet with 2 turns (QC: 9 Wheel 150 feet: 9 PT Plan Treatment/Plan Treatment Plan: Continue Plan of Care Treatment Plan: Bed Mobility, Education, Functional Activity Adriana, Functional Strength, Group Therapy, Gait, Safety, Therapeutic Exercise, Transfers Treatment Duration: Aug 15, 2021 Frequency: At least 5 of 7 days/Wk (IRF) Estimated Hrs Per Day: 1.5 hours per day Patient and/or Family Agrees t: Yes Time/GCodes Time In: 1300 Time Out: 1330 Total Billed Treatment Time: 30 Total Billed Treatment 1, EX, SANDRA MICHAELS BIOASSAYIST Jul 31, 2021 13:34
[2021-07-31] MEDS ORDERED: CYAN500T44 PO (15:42)
[2021-07-31] MEDS ORDERED: FURO40TA4 PO (15:42)
[2021-07-31] MEDS ORDERED: POTA10TA36 PO (15:42)
[2021-07-31] MEDS ORDERED: MAGN420T PO (15:42)
[2021-07-31] MEDS ORDERED: LISI40TA9 PO (15:42)
[2021-07-31] MEDS ORDERED: HYDR25TA4 PO (15:42)
[2021-07-31] MEDS ORDERED: UBID100C7 PO (15:42)
[2021-07-31] MEDS ORDERED: SPIR25TA PO (15:42)
[2021-07-31] MEDS ORDERED: MULT-1136 PO (15:42)
[2021-07-31] MEDS ORDERED: NITR0.4T39 SL (15:42)
[2021-07-31] MEDS ORDERED: LORA10TA7 PO (15:42)
[2021-07-31] MEDS: ENOXAPARIN 40 MG/0.4 ML (LOVENOX) SYR SC SCH (15:52)
[2021-07-31] MEDS: MELATONIN 3 MG TABLET PO SCH (20:05)
[2021-07-31] MEDS: TAMSULOSIN 0.4 MG (FLOMAX) CAP PO SCH (20:05)
[2021-07-31] MEDS: PHENobarbital 64.8 MG (1 GRAIN) TAb PO SCH (20:06)
[2021-07-31] MEDS: LACTOBACILLUS ACIDOPHILUS (PROBIOTIC) CAPSULE PO SCH (20:06)
[2021-07-31] MEDS: LATANOPROST 0.005% (XALATAN) OPHTH SOLN 2.5 ML OU SCH (20:08)
[2021-07-31 20:10] VITALS: BP 157/72
[2021-08-01] MEDS: inSUlin ASPART (NovoLOG) 1 UNIT/0.01 ML (CHARGE PER UNIT) SC SCH ×4 (05:34→20:31)
[2021-08-01] MEDS: LEVOTHYROXINE 100 MCG (LEVOTHROID) TAB PO SCH (06:10)
--- NOTE | 2021-08-01 07:04 | CONSULTATION REPORT ---
DATE OF SERVICE: ENT CONSULT ROOM: 228. LOCATION: [facility]. REFERRING PHYSICIAN: Dr. Henry. REASON FOR CONSULTATION: Right ear problems. HISTORY OF PRESENT ILLNESS: The patient is currently admitted to the rehab unit for treatment of weakness post-COVID. He had COVID approximately 2 weeks ago. On admission, he complained of a full feeling in the right ear and a feeling as though something was rolling around in his ear. Those symptoms have improved, but not completely resolved. 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 [facility] and he reports two hearing test in the past, which showed some hearing loss. He has had no drainage from the ears. He also has a history of cerumen. PHYSICAL EXAMINATION: GENERAL: Today, he is in no acute distress. He is alert and oriented x3. Communication, speech and voice were normal. EYES: Vision grossly intact. Extraocular muscles intact. EARS: On the right side, the canal was normal. There was no cerumen removed. Tympanic membrane was intact. There was no fluid in the middle ear space on the left side. He had a small amount of cerumen present in the canal was nonobstructive. Tympanic membrane was intact and mobile. NOSE: He does have oxygen, he is wearing. Nasal mucosa was dry. Oral cavity was clear and without some infection or lesion. Pharynx no mass or ulceration seen. NECK: No mass, adenopathy, thyromegaly palpable within the neck. NEUROLOGIC: Cranial nerves II-XII are grossly intact. LUNGS: Clear. IMPRESSION: 1. Plugged right ear. 2. Possible worsening right sensorineural hearing loss. RECOMMENDATIONS: Findings were discussed with the patient. At this time, there is no cerumen to remove from the canal and I did not see any fluid today in the middle ear space. When he gets home from rehabilitation. I have asked him to call his [facility] doctor and arrange for an [facility] in the [facility]. They can then compare it to his last audiogram to see if there has been worsening of his loss. If there is anything we can do for him in the future, we are happy to do so. Thank you for the consultation. Job ID: [id number] DocumentID: [id number] Dictated Date: 08/01/2021 06:37:36 Marine Specialist Date: 08/01/2021 07:04:06 Dictated By: PILAR GAMBLE MD
[2021-08-01 08:00] VITALS: BP 135/83
[2021-08-01] MEDS: SENNA W/DOCUSATE (SENOKOT S) TABLET PO SCH ×2 (08:10→20:24)
[2021-08-01] MEDS: polyethylene glycoL POWDER 17 GM (MIRALAX) PACK PO SCH ×2 (08:10→20:30)
[2021-08-01] MEDS: FAMOTIDINE 20 MG (PEPCID) TABLET PO SCH ×2 (08:10→20:24)
[2021-08-01] MEDS: PHENYTOIN 100 MG (DILANTIN) CAP PO SCH ×3 (08:11→20:25)
[2021-08-01] MEDS: metFORMIN XR 500 MG (GLUCOPHAGE XR) TAB PO SCH ×2 (08:11→17:28)
[2021-08-01] MEDS: FUROSEMIDE 20 MG (LASIX) TAB PO SCH (08:11)
[2021-08-01] MEDS: CALCIUM CARB + VIT D 600 MG (CALCARB + D) TAB PO SCH ×2 (08:11→17:28)
[2021-08-01] MEDS: ASPIRIN E.C. 81 MG (ECOTRIN) TAB PO SCH (08:12)
[2021-08-01] MEDS: amLODIPine 5 MG (NORVASC) TAB PO SCH ×2 (08:14→20:25)
[2021-08-01] MEDS: BRIMONIDINE 0.2% (ALPHAGAN) OPHTH SOLN 5 ML BTL OS SCH ×2 (08:14→20:28)
[2021-08-01] MEDS: lisINopril 20 MG (PRINIVIL) TABLET PO SCH (08:14)
[2021-08-01] MEDS: [UNRECOGNIZED DRUG - REMARK] PO SCH (08:14)
--- NOTE | 2021-08-01 09:06 | Occupational Ther Daily Note ---
OT Current Status-Daily Note Subjective Pt denies pain, agreeable to treatment. Appearance Pt left sitting in chair, all needs within reach. ADL-Treatment Therapy Code Descriptions/Definitions Functional [place] Measure: 0=Not Assessed/NA 4=Minimal Assistance 1=Total Assistance 5=Supervision or Setup 2=Maximal Assistance 6=Modified [place] 3=Moderate Assistance 7=Complete IndependenceSCALE: Activities may be completed with or without assistive devices. 7-Fritapmtca-iukwhnq completes the activity by him/herself with no assistance from a helper. 5-Set-up or Clean-up Assistance-helper sets up or cleans up; patient completes activity. [place] assists only prior to or following the activity. 4-Supervision or Touching Assistance-helper provides verbal cues and/or touching/steadying and/or contact guard assistance as patient completes ac tivity. Assistance may be provided throughout the activity or intermittently. 3-Partial/Moderate Assistance-helper does LESS THAN HALF the effort. [place] lifts, holds or supports trunk or limbs, but provides less than half the effort. 2-Substantial/Maximal Assistance-helper does MORE THAN HALF the effort. [place] lifts or holds trunk or limbs and provides more than half the effort. 4-Qcnmwvwwk-jhsxnf does ALL the effort. Patient does none of the effort to complete the activity. Or, the assistance of 2 or more helpers is required for the patient to complete the activity. If activity was not attempted, code reason: 7-Patient Refused. 9-Not Applicable-not attempted and the patient did not perform the activity before the current illness, exacerbation or injury. 10-Not Attempted due to Environmental Limitations-(lack of equipment, weather restraints, etc.). 88-Not Attempted due to Medical Conditions or Safety Concerns. Upper Body Dressing (QC): 5 Lower Body Dressing (QC): 4 On/Off Footwear: 5 Toileting Hygiene (QC): 4 Toilet Transfer (QC): 4 Dressing tasks performed seated in chair. Pt utilizes figure 4 method to thread LLE. Unable to lift RLE high enough off floor secondary to weakness. Good use of assembly machine tool setter to thread RLE into clothing. Close sup for safety as he managed clothing up to waist in standing. Reminder to alternate single UE support on walker for safety. Min verbal cues for correct use, but no physical assist required when donning socks with use of sock aid. He stood at the sink with close supervision for grooming tasks. Multiple toilet transfers secondary to constipation. Pt unsuccessful with having BM. Total of 4 toilet transfers during session. Pt ambulated to/from ADL tub room with CGA and use of walker. Min cues for improved foot clearance. OT demonstrated tub transfer with use of tub transfer bench. Pt wanting to try standing method as this is what he does at home. In standing, pt requires Mod a for balance when lifting feet off floor. OT recommending sit method at this time. In sitting, pt able to perform with CGA, min cues for sequencing and to use UE's to assist in lifting feet over side of tub. Pt will need reinforcement/continued practice prior to going home. Education OT Patient Education: Disease process, Energy conservation, Modified ADL techniques, Progress toward Goal/Update tx plan, Purpose of tx/functional activities, Rehab process, Safety issues, Transfer techniques, Use of adapted equipment Teaching Recipient: Patient Teaching Methods: Demonstration, Discussion Response to Teaching: Verbalize Understanding, Return Demonstration, Reinforcement Needed OT Short Term Goals Short Term Goals Time Frame: Aug 01, 2021 Eatin Oral hygiene: 5 Toileting hygiene: 4 (CGA) Shower/bathe self: 3 Upper body dressin Lower body dressin (CGA) Putting on/taking off footwear: 4 OT Sales Estimator Goals Long-Term Goals Time Frame: Aug 11, 2021 Eating (QC): 6 Oral Hygiene (QC): 6 Toileting Hygiene (QC): 4 Shower/Bathe Self (QC): 4 Upper Body Dressing (QC): 4 Lower Body Dressing (QC): 4 On/Off Footwear (QC): 4 1=Demonstrate adherence to instructed precautions during ADL tasks. 2=Patient will verbalize/demonstrate understanding of assistive devices/modific ations for ADL. 3=Patient will improve strength/tolerance for activity to enable patient to perform ADL's. OT Education/Plan Problem List/Assessment Assessment: Decreased Activ Tolerance, Decreased Safety Aware, Decreased UE Strength, Impaired Coordination, Impaired Funct Balance, Impaired Self-Care Skills Discharge Recommendations Plan/Recommendations: Continue POC Equpiment Recommendations-D/C: Rails on Tub/Shower, Toilet Riser with Rails, Cerner Analyst, Sock Aide Comment Pt already owns tub transfer bench. Treatment Plan/Plan of Care Patient would benefit from OT for education, treatment and training to promote independence in ADL's, mobility, safety and/or upper extremity function for ADL's. Plan of Care: ADL Retraining, Caregiver Training, Functional Mobility, Group Exercise/Act as Ind, UE Funct Exercise/Act, UE Neuromus Re-Ed/Coord, W/C Management Training Treatment Duration: Aug 11, 2021 Frequency: At least 5 of 7 days/Wk (IRF) Estimated Hrs Per Day: 1.5 hours per day Agreement: Yes Rehab Potential: Fair Time/GCodes Start Time: 08:00 Stop Time: 09:00 Total Time Billed (hr/min): 60 Billed Treatment Time 1 visit, ADL x4 Arcelia Deleon OT Aug 01, 2021 09:06
--- NOTE | 2021-08-01 09:17 | PM&R Progress Note ---
Subjective HPI/CC On Admission Date Seen by Provider: Aug 01, 2021 Time Seen by Provider: 11:15 Subjective/Events-last exam 08/01/2021: Pt doing well Sugars are okay Dr. Bejarano was pleased with his right ear, no additional surgeries are needed or medications 07/31/2021: Pt doing well Right ear pain and will consult Dr. Bejarano who will see him tomorrow Sodium level 133 Bowels moved on 07/29/21, laxatives given 07/30/2021: No major issues Took a shower today No diarrhea anymore Oxygen while napping and sleeping 07/29/2021: Patient doing well Loose stools continue May need Questran 93% on room air Participating in therapy 07/28/2021: Patient doing really well today Loose bowels x2 1 L of oxygen last night Once again discussed his noncompliance with CPAP Appreciate pulmonary consult yesterday 07/27/2021: Patient doing really well Pulmonary consult reviewed and I conferred with the physician who recommended restarting CPAP Bowels moved today Incontinent of bowel and bladder at times but that is a chronic issue since stroke 07/26/2021: No major issues Declines wearing CPAP Has some PTSD noted during conversation Incontinent of bowel and bladder at times We will discontinue the Hep-Lock Trulicity will be brought in by his today Finishing up with Decadron Review of Systems General: Fatigue, Malaise Pulmonary: Dyspnea Objective Exam Vital Signs Vital Signs Date Time Temp Pulse Resp B/P (MAP) Pulse Ox O2 Delivery O2 Flow Rate FiO2 08/01/21 20:39 Room Air 08/01/21 19:54 36.5 73 18 139/65 (89) 97 07/28/21 20:38 1.00 Capillary Refill : General Appearance: No Apparent Distress, WD/WN, Chronically ill, Obese HEENT: PERRL/EOMI, Normal ENT Inspection, Pharynx Normal Neck: Full Range of Motion, Normal Inspection, Non Tender, Supple, Carotid Bruit Respiratory: Chest Non Tender, Normal Breath Sounds, No Accessory Muscle Use, No Respiratory Distress, Decreased Breath Sounds Cardiovascular: Regular Rate, Rhythm, No Edema, No Gallop, No JVD, No Murmur, Normal Peripheral Pulses Gastrointestinal: Normal Bowel Sounds, No Organomegaly, No Pulsatile Mass, Non Tender, Soft Back: Normal Inspection, No CVA Tenderness, No Vertebral Tenderness Extremity: Normal Capillary Refill, Normal Inspection, Normal Range of Motion, Non Tender, No Calf Tenderness, No Pedal Edema Neurologic/Psychiatric: Alert, Oriented x3, benefits specialist II-XII Norm as 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 FIM Transfers Therapy Code Descriptions/Definitions Functional [place] Measure: 0=Not Assessed/NA 4=Minimal Assistance 1=Total Assistance 5=Supervision or Setup 2=Maximal Assistance 6=Modified [place] 3=Moderate Assistance 7=Complete IndependenceSCALE: Activities may be completed with or without assistive devices. 5-Nuchezfwgj-dniaktg completes the activity by him/herself with no assistance from a helper. 5-Set-up or Clean-up Assistance-helper sets up or cleans up; patient completes activity. [place] assists only prior to or following the activity. 4-Supervision or Touching Assistance-helper provides verbal cues and/or touching/steadying and/or contact guard assistance as patient completes activity. Assistance may be provided throughout the activity or intermittently. 3-Partial/Moderate Assistance-helper does LESS THAN HALF the effort. [place] lifts, holds or supports trunk or limbs, but provides less than half the effort. 2-Substantial/Maximal Assistance-helper does MORE THAN HALF the effort. [place] lifts or holds trunk or limbs and provides more than half the effort. 4-Taxqlneqx-gtplop does ALL the effort. Patient does none of the effort to complete the activity. Or, the assistance of 2 or more helpers is required for the patient to complete the activity. If activity was not attempted, code reason: 7-Patient Refused. 9-Not Applicable-not attempted and the patient did not perform the activity b efore the current illness, exacerbation or injury. 10-Not Attempted due to Environmental Limitations-(lack of equipment, weather restraints, etc.). 88-Not Attempted due to Medical Conditions or Safety Concerns. Roll Left to Right (QC): 6 Sit to Lying (QC): 4 Sit to Stand (QC): 5 Chair/Rzs-nq-Qandh Xfer(QC): 4 Car Transfer (QC): 4 Gait Training Does the Patient Walk?: Yes Distance: 150' x2 Walk 10 feet (QC): 4 Walk 50 ft with 2 Turns(QC): 4 Walk 150 ft (QC): 4 Walking 10ft/uneven surface-QC: 4 Gait Persons Needed: 1 Gait Assistive Device: FWW Wheelchair Training Does the Pt Use a Wheelchair?: No Distance: 100' Wheel 50 ft with 2 turns (QC): 4 Wheel 150 ft (QC): 88 Type of Wheelchair: Manual Stair Training Stair Training: Handrails/: 2 handrails #of Steps: 1 1 Step (curb) (QC): 4 4 Steps (QC): 88 12 Steps (QC): 88 Balance Picking up an Object (QC): 88 ADL-Treatment Eating (QC): 5 Oral Hygiene (QC): 4 Bathing Location: L Arm, R Arm, L Upper Leg, R Upper Leg, L Lower Leg (including foot), R Lower Leg (including foot), Chest, Abdomen, Buttocks, Perineal Area Shower/Bathe Self (QC): 3 (1 mild LOB, needing Min a for recovery when standing. ) Upper Body Dressing (QC): 5 Lower Body Dressing (QC): 4 On/Off Footwear (QC): 5 Toileting Hygiene (QC): 4 Toilet Transfer (QC): 4 Assessment/Plan Assessment and Plan Assess & Plan/Chief Complaint Assessment: Post Covid syndrome Hypoxia Obesity Diabetes Hypertension Hyperlipidemia Prior stroke with left-sided hemiparesis Right ear pain consulted Dr. Bejarano 07/31/2021 Plan: Supportive care Oxygen supplementation Aggressive therapy 07/26/2021: Continue supportive care Monitor for hypoxia 07/27/2021: Pulmonary consult appreciated Monitor incontinence Maintain aggressive therapy 07/28/2021: Monitor loose stools Oxygen at night 07/29/2021: Supportive care Monitor loose stools 07/30/2021: Continue aggressive therapy Maintain oxygen 07/31/2021: Dr. Bejarano consult right ear pain 08/01/2021: Supportive care Appreciate Dr. Bejarano (1) Post-COVID syndrome (2) Hypertension (3) BPH (benign prostatic hyperplasia) (4) Diabetes (5) History of stroke HANNA GARCIA DO Aug 01, 2021 09:17
--- NOTE | 2021-08-01 12:09 | Physical Therapy Daily Note ---
PT Daily Note-Current Subjective Pt sitting in recliner upon arrival. Pt agrees to PT. Pain Location: No Pain Reported Mental Status Patient Orientation: Person, Place, Time, Situation Transfers SCALE: Activities may be completed with or without assistive devices. 4-Wqbmfwatof-xxqvnna completes the activity by him/herself with no assistance from a helper. 5-Set-up or Clean-up Assistance-helper sets up or cleans up; patient completes activity. [place] assists only prior to or following the activity. 4-Supervision or Touching Assistance-helper provides verbal cues and/or touching/steadying and/or contact guard assistance as patient completes activity. Assistance may be provided throughout the activity or intermittently. 3-Partial/Moderate Assistance-helper does LESS THAN HALF the effort. [place] lifts, holds or supports trunk or limbs, but provides less than half the effort. 2-Substantial/Maximal Assistance-helper does MORE THAN HALF the effort. [place] lifts or holds trunk or limbs and provides more than half the effort. 4-Vtrkofamm-ccjine does ALL the effort. Patient does none of the effort to complete the activity. Or, the assistance of 2 or more helpers is required for the patient to complete the activity. If activity was not attempted, code reason: 7-Patient Refused. 9-Not Applicable-not attempted and the patient did not perform the activity bef ore the current illness, exacerbation or injury. 10-Not Attempted due to Environmental Limitations-(lack of equipment, weather r estraints, etc.). 88-Not Attempted due to Medical Conditions or Safety Concerns. Sit to Stand (QC): 5 Toilet Transfer (QC): 5 Weight Bearing Full Weight Bearing Full Weight Bearing Gait Training Does the Patient Walk?: Yes Distance: 150' x2 Walk 10 feet (QC): 5 Walk 50 ft with 2 Turns(QC): 5 Walk 150 ft (QC): 5 Gait Persons Needed: 1 Gait Assistive Device: FWW VC for slight scissoring with turning eleonora. when fatigued. Correct with cuing. Wheelchair Training Does the Pt Use a Wheelchair?: No Exercises Seated Therapy Exercises: Ankle pumps, Long arc quads, Hip flexion, Hip abd/add, Glut set Seated Reps: 15 NuStep Minutes: 15 NuStep Workload: 5 Treatments TF to standing and uses BR. Pt amb. in hallway then uses NuStep for 15m. Pt completes Seated EX and is given written HEP with explanation/demonstration. Pt amb. in hallway and returns to room. Pt asks to use BR again. Pt given call light to pull when finished. All needs met. Assessment Current Status: Good Progress VC for slight scissoring while ambulating, corrects with cuing. PT Short Term Goals Short Term Goals Time Frame: Aug 01, 2021 Roll Left & Right: 6 Sit to lyin Lying to sitting on side of be: 5 Sit to stand: 4 Chair/dwr-az-qwfuk transfer: 4 Walk 10 feet: 4 Walk 50 feet with two turns: 4 Walk 150 feet: 4 PT Dynamics Ax Consultant Goals Senior Living Goals PT Senior Living Goals Time Frame: Aug 15, 2021 Roll Left & Right (QC): 6 Sit to Lying (QC): 6 Lying-Sitting on Side/Bed(QC): 6 Sit to Stand (QC): 5 Chair/Kge-xf-Rdfko Xfer(QC): 5 Toilet Transfer (QC): 5 Car Transfer (QC): 5 Does the Patient Walk: Yes Walk 10 feet (QC): 5 Walk 50ft with 2 Turns (QC): 5 Walk 150 ft (QC): 5 Walking 10ft on Uneven Surface: 4 1 Step (curb) (QC): 4 4 Steps (QC): 4 12 Steps (QC): 88 Picking up an Object (QC): 4 Wheel 50 feet with 2 turns (QC: 9 Wheel 150 feet: 9 PT Plan Problem List Problem List: Activity Tolerance, Bed Mobility Treatment/Plan Treatment Plan: Continue Plan of Care Treatment Plan: Bed Mobility, Education, Functional Activity Adriana, Functional Strength, Group Therapy, Gait, Safety, Therapeutic Exercise, Transfers Treatment Duration: Aug 15, 2021 Frequency: At least 5 of 7 days/Wk (IRF) Estimated Hrs Per Day: 1.5 hours per day Patient and/or Family Agrees t: Yes Safety Risks/Education Patient Education: Gait Training, Correct Positioning, Safety Issues Teaching Recipient: Patient Teaching Methods: Discussion Response to Teaching: Verbalize Understanding Time/GCodes Time In: 1000 Time Out: 1100 Total Billed Treatment Time: 60 Total Billed Treatment 1, FA (15m), GT (15m) & EX x2 (30m) MALIA VERGARA INBOUND TELEMARKETER Aug 01, 2021 12:09
--- NOTE | 2021-08-01 16:00 | Therapy Group Daily Note ---
Therapy Daily Group Note Patient Education Topic Other List Below (Memory & Memory Strategies) Exercises LE Seated Exercise, UE Exercise Session Ratio (pt:therapist): 4:1 Goal of Session: Education on ARU Expectations, Memory Strategies, UE/LE Strengthing Goal Met for this Session: Yes Pt Benefit of Group: Contributions to Others, F/U Use of Strategies @Home, Increased Functional Safety, Increased Functional Strength, Improved Cognition, Recognition of Peers, Socialization Other/Notes Pt ambulates to PT/OT Group at [facility]. Group consists of Introduction (Name, Where you are from & Favorite Holiday/Memory), Socialization, ARU Expectations, UE & LE Seated Exercises as well as Memory Strategies and Memory Activity. Pt introduced self appropriately and actively listened to peers. Pt actively participated in Group by completing exercises and giving individual example of Memory Strategies used as well as matching 2/2 pictures during Memory Activity. Pt returned to room after saying goodbye to to rest in recliner at end of treatment. All needs met, call light next to pt. Start Time: 13:30 Stop Time: 14:50 Total Billed Treatment Time: 80 Total Billed Treatment 1, GRP (80m) MALIA VERGARA MAINTENANCE CHIEF Aug 01, 2021 16:00
[2021-08-01] MEDS: ENOXAPARIN 40 MG/0.4 ML (LOVENOX) SYR SC SCH (16:46)
[2021-08-01 19:54] VITALS: BP 139/65
[2021-08-01] MEDS: LACTOBACILLUS ACIDOPHILUS (PROBIOTIC) CAPSULE PO SCH (20:24)
[2021-08-01] MEDS: MELATONIN 3 MG TABLET PO SCH (20:24)
[2021-08-01] MEDS: TAMSULOSIN 0.4 MG (FLOMAX) CAP PO SCH (20:25)
[2021-08-01] MEDS: PHENobarbital 64.8 MG (1 GRAIN) TAb PO SCH (20:27)
[2021-08-01] MEDS: LATANOPROST 0.005% (XALATAN) OPHTH SOLN 2.5 ML OU SCH (20:28)
[2021-08-02] MEDS: inSUlin ASPART (NovoLOG) 1 UNIT/0.01 ML (CHARGE PER UNIT) SC SCH ×4 (06:03→21:04)
[2021-08-02] MEDS: LEVOTHYROXINE 100 MCG (LEVOTHROID) TAB PO SCH (06:05)
[2021-08-02] MEDS: metFORMIN XR 500 MG (GLUCOPHAGE XR) TAB PO SCH ×2 (07:56→17:26)
[2021-08-02] MEDS: FAMOTIDINE 20 MG (PEPCID) TABLET PO SCH ×2 (07:56→20:21)
[2021-08-02] MEDS: ASPIRIN E.C. 81 MG (ECOTRIN) TAB PO SCH (07:56)
[2021-08-02] MEDS: PHENYTOIN 100 MG (DILANTIN) CAP PO SCH ×3 (07:57→20:21)
[2021-08-02] MEDS: amLODIPine 5 MG (NORVASC) TAB PO SCH ×2 (07:57→20:22)
[2021-08-02] MEDS: lisINopril 20 MG (PRINIVIL) TABLET PO SCH (07:58)
[2021-08-02] MEDS: FUROSEMIDE 20 MG (LASIX) TAB PO SCH (07:58)
[2021-08-02] MEDS: CALCIUM CARB + VIT D 600 MG (CALCARB + D) TAB PO SCH ×2 (07:58→17:26)
[2021-08-02] MEDS: BRIMONIDINE 0.2% (ALPHAGAN) OPHTH SOLN 5 ML BTL OS SCH ×2 (07:59→20:22)
[2021-08-02 08:00] VITALS: BP 149/73
[2021-08-02] MEDS: [UNRECOGNIZED DRUG - REMARK] PO SCH (08:00)
[2021-08-02] MEDS: polyethylene glycoL POWDER 17 GM (MIRALAX) PACK PO SCH ×2 (08:01→20:14)
[2021-08-02] MEDS: SENNA W/DOCUSATE (SENOKOT S) TABLET PO SCH ×2 (08:01→20:28)
--- NOTE | 2021-08-02 10:02 | Occupational Ther Daily Note ---
OT Current Status-Daily Note Subjective Pt in good spirits. Reports burning when voiding. RN and physician informed. Appearance Pt left sitting in chair, all needs within reach. ADL-Treatment Therapy Code Descriptions/Definitions Functional [place] Measure: 0=Not Assessed/NA 4=Minimal Assistance 1=Total Assistance 5=Supervision or Setup 2=Maximal Assistance 6=Modified [place] 3=Moderate Assistance 7=Complete IndependenceSCALE: Activities may be completed with or without assistive devices. 3-Oljiqjhofc-npjbwuh completes the activity by him/herself with no assistance from a helper. 5-Set-up or Clean-up Assistance-helper sets up or cleans up; patient completes activity. [place] assists only prior to or following the activity. 4-Supervision or Touching Assistance-helper provides verbal cues and/or touching/steadying and/or contact guard assistance as patient completes activity. Assistance may be provided throughout the activity or intermittently. 3-Partial/Moderate Assistance-helper does LESS THAN HALF the effort. [place] lifts, holds or supports trunk or limbs, but provides less than half the effort. 2-Substantial/Maximal Assistance-helper does MORE THAN HALF the effort. [place] lifts or holds trunk or limbs and provides more than half the effort. 6-Hxjydzvoh-cqmozv does ALL the effort. Patient does none of the effort to complete the activity. Or, the assistance of 2 or more helpers is required for the patient to complete the activity. If activity was not attempted, code reason: 7-Patient Refused. 9-Not Applicable-not attempted and the patient did not perform the activity bef ore the current illness, exacerbation or injury. 10-Not Attempted due to Environmental Limitations-(lack of equipment, weather r estraints, etc.). 88-Not Attempted due to Medical Conditions or Safety Concerns. Oral Hygiene (QC): 4 Upper Body Dressing (QC): 4 Lower Body Dressing (QC): 4 On/Off Footwear: 5 Toileting Hygiene (QC): 4 Toilet Transfer (QC): 4 Dressing tasks performed seated in chair. Pt utilizes figure 4 method to thread LLE. Improved RLE strength this date, did not require use of fibre cement moulder. Close sup for safety as he managed clothing up to waist in standing. Reminder to alternate single UE support on walker for safety. Pt was able to perform figure 4 method with RLE this date, but demonstrates increased effort/struggle to reach foot in order to don sock. Reminder on energy conservation and using sock aid if needed. Post cue, pt able to don with use of sock aid, no physical assist. He stood at the sink for grooming tasks, close sup for safety, no unsteadiness this date. Pt able to self initiate techniques learned in past sessions. Other Treatment Pt participated in dynamic standing activity with goal to promote increased balance, safety, LE strengthening, and functional reach. With overhead reaching, pt able to lift up on toes, CGA for safety. Mild unsteadiness but no significant LOB. Improved tolerance exhibited. Mod cues for attention to task as when pt becomes distracted, balance worsens. Reminders on improving DOMINIQUE and COG during activity. Balance improves post cues. Education OT Patient Education: Correct positioning, Energy conservation, Modified ADL techniques, Progress toward Goal/Update tx plan, Purpose of tx/functional activities, Rehab process, Safety issues, Use of adapted equipment Teaching Recipient: Patient Teaching Methods: Discussion Response to Teaching: Return Demonstration, Reinforcement Needed OT Short Term Goals Short Term Goals Time Frame: Aug 01, 2021 Eatin Oral hygiene: 5 Toileting hygiene: 4 (CGA) Shower/bathe self: 3 Upper body dressin Lower body dressin (CGA) Putting on/taking off footwear: 4 OT Supervisor [employer] Goals Supervisor [employer] Goals Time Frame: Aug 11, 2021 Eating (QC): 6 Oral Hygiene (QC): 6 Toileting Hygiene (QC): 4 Shower/Bathe Self (QC): 4 Upper Body Dressing (QC): 4 Lower Body Dressing (QC): 4 On/Off Footwear (QC): 4 1=Demonstrate adherence to instructed precautions during ADL tasks. 2=Patient will verbalize/demonstrate understanding of assistive devices/modifications for ADL. 3=Patient will improve strength/tolerance for activity to enable patient to perf orm ADL's. OT Education/Plan Problem List/Assessment Assessment: Decreased Activ Tolerance, Decreased Safety Aware, Decreased UE Strength, Impaired Funct Balance, Impaired Self-Care Skills Discharge Recommendations Plan/Recommendations: Continue POC Treatment Plan/Plan of Care Treatment,Training & Education: Yes Patient would benefit from OT for education, treatment and training to promote independence in ADL's, mobility, safety and/or upper extremity function for ADL's. Plan of Care: ADL Retraining, Caregiver Training, Functional Mobility, Group Exercise/Act as Ind, UE Funct Exercise/Act, UE Neuromus Re-Ed/Coord, W/C Manage ment Training Treatment Duration: Aug 11, 2021 Frequency: At least 5 of 7 days/Wk (IRF) Estimated Hrs Per Day: 1.5 hours per day Agreement: Yes Rehab Potential: Fair Time/GCodes Start Time: 08:00 Stop Time: 09:00 Total Time Billed (hr/min): 60 Billed Treatment Time 1 visit, ADL x3 (40 min) FA (20 min) Arcelia Deleon OT Aug 02, 2021 10:02
--- NOTE | 2021-08-02 11:24 | PM&R Progress Note ---
Subjective HPI/CC On Admission Date Seen by Provider: Aug 02, 2021 Time Seen by Provider: 09:00 Subjective/Events-last exam 08/02/2021: Pt doing really well Having some loose stools Imodium will be used Checked meds and labs 08/01/2021: Pt doing well Sugars are okay Dr. Bejarano was pleased with his right ear, no additional surgeries are needed or medications 07/31/2021: Pt doing well Right ear pain and will consult Dr. Bejarano who will see him tomorrow Sodium level 133 Bowels moved on 07/29/21, laxatives given 07/30/2021: No major issues Took a shower today No diarrhea anymore Oxygen while napping and sleeping 07/29/2021: Patient doing well Loose stools continue May need Questran 93% on room air Participating in therapy 07/28/2021: Patient doing really well today Loose bowels x2 1 L of oxygen last night Once again discussed his noncompliance with CPAP Appreciate pulmonary consult yesterday 07/27/2021: Patient doing really well Pulmonary consult reviewed and I conferred with the physician who recommended restarting CPAP Bowels moved today Incontinent of bowel and bladder at times but that is a chronic issue since stroke 07/26/2021: No major issues Declines wearing CPAP Has some PTSD noted during conversation Incontinent of bowel and bladder at times We will discontinue the Hep-Lock Trulicity will be brought in by his today Finishing up with Decadron Review of Systems General: Fatigue, Malaise Objective Exam Vital Signs Vital Signs Date Time Temp Pulse Resp B/P (MAP) Pulse Ox O2 Delivery O2 Flow Rate FiO2 08/02/21 21:00 Room Air 08/02/21 20:34 36.6 74 20 160/70 (100) 99 2.00 Capillary Refill : General Appearance: No Apparent Distress, WD/WN, Chronically ill, Obese HEENT: PERRL/EOMI, Normal ENT Inspection, Pharynx Normal Neck: Full Range of Motion, Normal Inspection, Non Tender, Supple, Carotid Bruit Respiratory: Chest Non Tender, Normal Breath Sounds, No Accessory Muscle Use, No Respiratory Distress, Decreased Breath Sounds Cardiovascular: Regular Rate, Rhythm, No Edema, No Gallop, No JVD, No Murmur, Normal Peripheral Pulses Gastrointestinal: Normal Bowel Sounds, No Organomegaly, No Pulsatile Mass, Non Tender, Soft Back: Normal Inspection, No CVA Tenderness, No Vertebral Tenderness Extremity: Normal Capillary Refill, Normal Inspection, Normal Range of Motion, Non Tender, No Calf Tenderness, No Pedal Edema Neurologic/Psychiatric: Alert, Oriented x3, semiconductor manufacturing technician II-XII Norm as 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 FIM Transfers Therapy Code Descriptions/Definitions Functional [place] Measure: 0=Not Assessed/NA 4=Minimal Assistance 1=Total Assistance 5=Supervision or Setup 2=Maximal Assistance 6=Modified [place] 3=Moderate Assistance 7=Complete IndependenceSCALE: Activities may be completed with or without assistive devices. 5-Qsipiqfqsv-cdxnrcj completes the activity by him/herself with no assistance from a helper. 5-Set-up or Clean-up Assistance-helper sets up or cleans up; patient completes activity. [place] assists only prior to or following the activity. 4-Supervision or Touching Assistance-helper provides verbal cues and/or touching/steadying and/or contact guard assistance as patient completes activity. Assistance may be provided throughout the activity or intermittently. 3-Partial/Moderate Assistance-helper does LESS THAN HALF the effort. [place] lifts, holds or supports trunk or limbs, but provides less than half the effort. 2-Substantial/Maximal Assistance-helper does MORE THAN HALF the effort. [place] lifts or holds trunk or limbs and provides more than half the effort. 0-Xaphskesm-qbziju does ALL the effort. Patient does none of the effort to complete the activity. Or, the assistance of 2 or more helpers is required for the patient to complete the activity. If activity was not attempted, code reason: 7-Patient Refused. 9-Not Applicable-not attempted and the patient did not perform the activity before the current illness, exacerbation or injury. 10-Not Attempted due to Environmental Limitations-(lack of equipment, weather restraints, etc.). 88-Not Attempted due to Medical Conditions or Safety Concerns. Roll Left to Right (QC): 6 Sit to Lying (QC): 4 Sit to Stand (QC): 5 Chair/Vbn-jz-Bjphy Xfer(QC): 4 Car Transfer (QC): 4 Gait Training Does the Patient Walk?: Yes Distance: 150' x2 Walk 10 feet (QC): 5 Walk 50 ft with 2 Turns(QC): 5 Walk 150 ft (QC): 5 Walking 10ft/uneven surface-QC: 4 Gait Persons Needed: 1 Gait Assistive Device: FWW Wheelchair Training Does the Pt Use a Wheelchair?: No Distance: 100' Wheel 50 ft with 2 turns (QC): 4 Wheel 150 ft (QC): 88 Type of Wheelchair: Manual Stair Training Stair Training: Handrails/: 2 handrails #of Steps: 1 1 Step (curb) (QC): 4 4 Steps (QC): 88 12 Steps (QC): 88 Balance Picking up an Object (QC): 88 ADL-Treatment Eating (QC): 5 Oral Hygiene (QC): 4 Bathing Location: L Arm, R Arm, L Upper Leg, R Upper Leg, L Lower Leg (including foot), R Lower Leg (including foot), Chest, Abdomen, Buttocks, Perineal Area Shower/Bathe Self (QC): 3 (1 mild LOB, needing Min a for recovery when standing. ) Upper Body Dressing (QC): 4 Lower Body Dressing (QC): 4 On/Off Footwear (QC): 5 Toileting Hygiene (QC): 4 Toilet Transfer (QC): 4 Assessment/Plan Assessment and Plan Assess & Plan/Chief Complaint Assessment: Post Covid syndrome Hypoxia Obesity Diabetes Hypertension Hyperlipidemia Prior stroke with left-sided hemiparesis Right ear pain consulted Dr. Bejarano 07/31/2021 Plan: Supportive care Oxygen supplementation Aggressive therapy 07/26/2021: Continue supportive care Monitor for hypoxia 07/27/2021: Pulmonary consult appreciated Monitor incontinence Maintain aggressive therapy 07/28/2021: Monitor loose stools Oxygen at night 07/29/2021: Supportive care Monitor loose stools 07/30/2021: Continue aggressive therapy Maintain oxygen 07/31/2021: Dr. Bejarano consult right ear pain 08/01/2021: Supportive care Appreciate Dr. Bejarano 08/02/2021: Supportive care Aggressive therapy (1) Post-COVID syndrome (2) Hypertension (3) BPH (benign prostatic hyperplasia) (4) Diabetes (5) History of stroke HANNA GARCIA DO Aug 02, 2021 11:24
--- NOTE | 2021-08-02 12:10 | Physical Therapy Daily Note ---
PT Daily Note-Current Subjective Pt sitting in recliner upon arrival. Pt agrees to PT. Pain Location: No Pain Reported Mental Status Patient Orientation: Person, Place, Time, Situation Transfers SCALE: Activities may be completed with or without assistive devices. 5-Ulebeqfzhz-dqomctz completes the activity by him/herself with no assistance from a helper. 5-Set-up or Clean-up Assistance-helper sets up or cleans up; patient completes activity. [place] assists only prior to or following the activity. 4-Supervision or Touching Assistance-helper provides verbal cues and/or touching/steadying and/or contact guard assistance as patient completes activity. Assistance may be provided throughout the activity or intermittently. 3-Partial/Moderate Assistance-helper does LESS THAN HALF the effort. [place] lifts, holds or supports trunk or limbs, but provides less than half the effort. 2-Substantial/Maximal Assistance-helper does MORE THAN HALF the effort. [place] lifts or holds trunk or limbs and provides more than half the effort. 9-Otunixeog-phalyi does ALL the effort. Patient does none of the effort to complete the activity. Or, the assistance of 2 or more helpers is required for the patient to complete the activity. If activity was not attempted, code reason: 7-Patient Refused. 9-Not Applicable-not attempted and the patient did not perform the activity bef ore the current illness, exacerbation or injury. 10-Not Attempted due to Environmental Limitations-(lack of equipment, weather r estraints, etc.). 88-Not Attempted due to Medical Conditions or Safety Concerns. Weight Bearing Full Weight Bearing Full Weight Bearing Gait Training Does the Patient Walk?: Yes Distance: 200' x2, 150' x2 Walk 10 feet (QC): 5 Walk 50 ft with 2 Turns(QC): 5 Walk 150 ft (QC): 5 Gait Persons Needed: 1 Gait Assistive Device: FWW Wheelchair Training Does the Pt Use a Wheelchair?: No Exercises Seated Therapy Exercises: Ankle pumps, Long arc quads, Hip flexion, Hip abd/add, Glut set Seated Reps: 15 NuStep Minutes: 15 NuStep Workload: 5 Treatments TF to standing and amb to BR. Pt then amb in hallway, taking RB as needed for fatigue. Pt uses NuStep for 15m at WL 5 followed by short RB then Seated Ex. Pt educ. given over d/c progress, continued therapy and need for watching scissoring while walking eleonora. as pt fatigues. Pt returns to room to use BR before returning to recliner to rest at end of tx. All needs met, call light in hand. Assessment Current Status: Good Progress Pt fatigues at times & needs rest break occasionally. PT Short Term Goals Short Term Goals Time Frame: Aug 01, 2021 Roll Left & Right: 6 Sit to lyin Lying to sitting on side of be: 5 Sit to stand: 4 Chair/pnb-fo-debhz transfer: 4 Walk 10 feet: 4 Walk 50 feet with two turns: 4 Walk 150 feet: 4 PT Speech Language Pathology Assistant Goals Speech Language Pathology Assistant Goals PT Senior Living Goals Time Frame: Aug 15, 2021 Roll Left & Right (QC): 6 Sit to Lying (QC): 6 Lying-Sitting on Side/Bed(QC): 6 Sit to Stand (QC): 5 Chair/Rqj-qp-Slmit Xfer(QC): 5 Toilet Transfer (QC): 5 Car Transfer (QC): 5 Does the Patient Walk: Yes Walk 10 feet (QC): 5 Walk 50ft with 2 Turns (QC): 5 Walk 150 ft (QC): 5 Walking 10ft on Uneven Surface: 4 1 Step (curb) (QC): 4 4 Steps (QC): 4 12 Steps (QC): 88 Picking up an Object (QC): 4 Wheel 50 feet with 2 turns (QC: 9 Wheel 150 feet: 9 PT Plan Problem List Problem List: Activity Tolerance Treatment/Plan Treatment Plan: Continue Plan of Care Treatment Plan: Bed Mobility, Education, Functional Activity Adriana, Functional Strength, Group Therapy, Gait, Safety, Therapeutic Exercise, Transfers Treatment Duration: Aug 15, 2021 Frequency: At least 5 of 7 days/Wk (IRF) Estimated Hrs Per Day: 1.5 hours per day Patient and/or Family Agrees t: Yes Safety Risks/Education Patient Education: Gait Training, Correct Positioning Teaching Recipient: Patient Teaching Methods: Discussion Response to Teaching: Verbalize Understanding Time/GCodes Time In: 1000 Time Out: 1130 Total Billed Treatment Time: 90 Total Billed Treatment 1, GT x2 (30m), EX x2 (30m) & FA x2 (30m) MALIA VERGARA RENTAL SALES AGENT Aug 02, 2021 12:10
--- NOTE | 2021-08-02 13:41 | Occupational Ther Daily Note ---
OT Current Status-Daily Note Subjective Pt denies pain, agreeable to treatment Appearance Pt left sitting in chair, all needs within reach, in room ADL-Treatment Therapy Code Descriptions/Definitions Functional [place] Measure: 0=Not Assessed/NA 4=Minimal Assistance 1=Total Assistance 5=Supervision or Setup 2=Maximal Assistance 6=Modified [place] 3=Moderate Assistance 7=Complete IndependenceSCALE: Activities may be completed with or without assistive devices. 8-Xwcdprnome-bjjphoi completes the activity by him/herself with no assistance from a helper. 5-Set-up or Clean-up Assistance-helper sets up or cleans up; patient completes activity. [place] assists only prior to or following the activity. 4-Supervision or Touching Assistance-helper provides verbal cues and/or touching/steadying and/or contact guard assistance as patient completes activity. Assistance may be provided throughout the activity or intermittently. 3-Partial/Moderate Assistance-helper does LESS THAN HALF the effort. [place] lifts, holds or supports trunk or limbs, but provides less than half the effort. 2-Substantial/Maximal Assistance-helper does MORE THAN HALF the effort. [place] lifts or holds trunk or limbs and provides more than half the effort. 9-Wlsvpmgay-lfgfcq does ALL the effort. Patient does none of the effort to complete the activity. Or, the assistance of 2 or more helpers is required for the patient to complete the activity. If activity was not attempted, code reason: 7-Patient Refused. 9-Not Applicable-not attempted and the patient did not perform the activity before the current illness, exacerbation or injury. 10-Not Attempted due to Environmental Limitations-(lack of equipment, weather restraints, etc.). 88-Not Attempted due to Medical Conditions or Safety Concerns. Other Treatment Pt finishing lunch at OT arrival. Agreeable to complete UE exercises with goal to promote increased strength, ROM, and endurance needed for adls. 3# hand held weight utilized for RUE, 0-1# resistance for LUE. Intermittent AAROM as pt fatigues on LUE. 10 x2, all planes. Cues for control/pacing, and correct form. discussed home exercise program post d/c. Education OT Patient Education: Correct positioning, Exercise program Teaching Recipient: Patient Teaching Methods: Demonstration, Discussion Response to Teaching: Return Demonstration, Reinforcement Needed OT Short Term Goals Short Term Goals Time Frame: Aug 01, 2021 Eatin Oral hygiene: 5 Toileting hygiene: 4 (CGA) Shower/bathe self: 3 Upper body dressin Lower body dressin (CGA) Putting on/taking off footwear: 4 OT Fpc Goals Fpc Goals Time Frame: Aug 11, 2021 Eating (QC): 6 Oral Hygiene (QC): 6 Toileting Hygiene (QC): 4 Shower/Bathe Self (QC): 4 Upper Body Dressing (QC): 4 Lower Body Dressing (QC): 4 On/Off Footwear (QC): 4 1=Demonstrate adherence to instructed precautions during ADL tasks. 2=Patient will verbalize/demonstrate understanding of assistive devices/modifications for ADL. 3=Patient will improve strength/tolerance for activity to enable patient to perform ADL's. OT Education/Plan Problem List/Assessment Assessment: Decreased Activ Tolerance, Decreased Safety Aware, Decreased UE Strength, Impaired Coordination, Impaired Funct Balance, Impaired Self-Care Skills, Restricted Funct UE ROM Discharge Recommendations Plan/Recommendations: Continue POC Treatment Plan/Plan of Care Treatment,Training & Education: Yes Patient would benefit from OT for education, treatment and training to promote independence in ADL's, mobility, safety and/or upper extremity function for ADL's. Plan of Care: ADL Retraining, Caregiver Training, Functional Mobility, Group Exercise/Act as Ind, UE Funct Exercise/Act, UE Neuromus Re-Ed/Coord, W/C Management Training Treatment Duration: Aug 11, 2021 Frequency: At least 5 of 7 days/Wk (IRF) Estimated Hrs Per Day: 1.5 hours per day Agreement: Yes Rehab Potential: Fair Time/GCodes Start Time: 13:00 Stop Time: 13:30 Total Time Billed (hr/min): 30 Billed Treatment Time 1 visit, EX x2 PanchoArcelia OT Aug 02, 2021 13:41
[2021-08-02 13:54] LABS: BILIRUBIN,URINE NEGATIVE (NEGATIVE); CLARITY,URINE CLEAR; COLOR,URINE YELLOW; GLUCOSE, URINE (UA) NEGATIVE (NEGATIVE); KETONES,URINE NEGATIVE (NEGATIVE); LEUKOCYTE ESTERASE ,URINE NEGATIVE (NEGATIVE); NITRITE,URINE NEGATIVE (NEGATIVE); PROTEIN,URINE 2+ (NEGATIVE)
[2021-08-02 14:11] LABS: BACTERIA,URINE NEGATIVE /HPF; HYALINE CASTS, URINE 0-2 /LPF; SQUAMOUS EPITHELIAL CELL,UR 0-2 /HPF
[2021-08-02] MEDS: ENOXAPARIN 40 MG/0.4 ML (LOVENOX) SYR SC SCH (17:28)
[2021-08-02] MEDS: [UNRECOGNIZED DRUG - REMARK] SQ SCH (18:08)
[2021-08-02] MEDS: LACTOBACILLUS ACIDOPHILUS (PROBIOTIC) CAPSULE PO SCH (20:21)
[2021-08-02] MEDS: TAMSULOSIN 0.4 MG (FLOMAX) CAP PO SCH (20:22)
[2021-08-02] MEDS: MELATONIN 3 MG TABLET PO SCH (20:22)
[2021-08-02] MEDS: LATANOPROST 0.005% (XALATAN) OPHTH SOLN 2.5 ML OU SCH (20:23)
[2021-08-02] MEDS: PHENobarbital 64.8 MG (1 GRAIN) TAb PO SCH (20:23)
[2021-08-02 20:34] VITALS: BP 160/70
[2021-08-03] MEDS: inSUlin ASPART (NovoLOG) 1 UNIT/0.01 ML (CHARGE PER UNIT) SC SCH ×4 (05:50→20:54)
[2021-08-03] MEDS: LEVOTHYROXINE 100 MCG (LEVOTHROID) TAB PO SCH (06:24)
[2021-08-03 07:55] VITALS: BP 108/67
--- NOTE | 2021-08-03 08:45 | Occupational Ther Daily Note ---
OT Current Status-Daily Note Subjective Pt reports poor sleep secondary to multiple bathroom trips for constipation. Appearance Pt left sitting in chair, all needs within reach. Mental Status/Objective Patient Orientation: Person, Place, Situation ADL-Treatment Therapy Code Descriptions/Definitions Functional [place] Measure: 0=Not Assessed/NA 4=Minimal Assistance 1=Total Assistance 5=Supervision or Setup 2=Maximal Assistance 6=Modified [place] 3=Moderate Assistance 7=Complete IndependenceSCALE: Activities may be completed with or without assistive devices. 9-Tzrwjbqkem-vcmkjto completes the activity by him/herself with no assistance from a helper. 5-Set-up or Clean-up Assistance-helper sets up or cleans up; patient completes activity. [place] assists only prior to or following the activity. 4-Supervision or Touching Assistance-helper provides verbal cues and/or touching/steadying and/or contact guard assistance as patient completes activity. Assistance may be provided throughout the activity or intermittently. 3-Partial/Moderate Assistance-helper does LESS THAN HALF the effort. [place] lifts, holds or supports trunk or limbs, but provides less than half the effort. 2-Substantial/Maximal Assistance-helper does MORE THAN HALF the effort. [place] lifts or holds trunk or limbs and provides more than half the effort. 8-Jsqdbggma-inmmyf does ALL the effort. Patient does none of the effort to complete the activity. Or, the assistance of 2 or more helpers is required for the patient to complete the activity. If activity was not attempted, code reason: 7-Patient Refused. 9-Not Applicable-not attempted and the patient did not perform the activity before the current illness, exacerbation or injury. 10-Not Attempted due to Environmental Limitations-(lack of equipment, weather restraints, etc.). 88-Not Attempted due to Medical Conditions or Safety Concerns. Eating (QC): 6 Oral Hygiene (QC): 6 Bathing Location: L Arm, R Arm, L Upper Leg, R Upper Leg, L Lower Leg (including foot), R Lower Leg (including foot), Chest, Abdomen, Buttocks, Perineal Area Shower/Bathe Self (QC): 4 (supervision) Upper Body Dressing (QC): 5 Lower Body Dressing (QC): 5 On/Off Footwear: 5 Toileting Hygiene (QC): 6 Toilet Transfer (QC): 4 (supervision) Shower performed; majority completed in sitting. He stood only to wash gael area/buttocks. No LOB this date, good recall to keep one hand on grab bar at all times when standing. Supervision only for safety. Extra time to initiate use of soap, but no cues needed. He is able to wash Left foot with use of cross over method, requires UE's to lift and cross. Requires use of LHS to wash R foot, but pt able to self initiate. Clothing donned seated on shower bench. Pt utilizes figure 4 method to thread LLE. He places clothing on floor in order to thread RLE and pulls up with use of UE's. No lob or unsteadiness exhibited with clothing management this date. Set up only for donning upper/lower body clothing. Pt initiated request to use of sock aid this date. Extra time for problem solving correct sequence, but no cues needed. Pt moving slower this date and reports fatigue post adls. Exhibits new cough and slight slurring in words this am. Education OT Patient Education: Correct positioning, Disease process, Energy conservation, Modified ADL techniques, Progress toward Goal/Update tx plan, Purpose of tx/functional activities, Rehab process, Safety issues, Use of adapted equipment Teaching Recipient: Patient Teaching Methods: Demonstration, Discussion Response to Teaching: Verbalize Understanding, Return Demonstration, Reinforcement Needed OT Short Term Goals Short Term Goals Time Frame: Aug 01, 2021 Eatin Oral hygiene: 5 Toileting hygiene: 4 (CGA) Shower/bathe self: 3 Upper body dressin Lower body dressin (CGA) Putting on/taking off footwear: 4 OT Dye Tub Operator Goals Senior Living Goals Time Frame: Aug 11, 2021 Eating (QC): 6 (met) Oral Hygiene (QC): 6 (met) Toileting Hygiene (QC): 4 (met) Shower/Bathe Self (QC): 4 (met) Upper Body Dressing (QC): 4 (met) Lower Body Dressing (QC): 4 (met) On/Off Footwear (QC): 4 (met) 1=Demonstrate adherence to instructed precautions during ADL tasks. 2=Patient will verbalize/demonstrate understanding of assistive devices/modifications for ADL. 3=Patient will improve strength/tolerance for activity to enable patient to perform ADL's. OT Education/Plan Problem List/Assessment Assessment: Decreased Activ Tolerance, Decreased Safety Aware, Decreased UE Strength, Impaired Cognition, Impaired Self-Care Skills, Restricted Funct UE ROM Discharge Recommendations Plan/Recommendations: Continue POC Treatment Plan/Plan of Care Treatment,Training & Education: Yes Patient would benefit from OT for education, treatment and training to promote independence in ADL's, mobility, safety and/or upper extremity function for ADL's. Plan of Care: ADL Retraining, Caregiver Training, Functional Mobility, Group Exercise/Act as Ind, UE Funct Exercise/Act, UE Neuromus Re-Ed/Coord, W/C Management Training Treatment Duration: Aug 11, 2021 Frequency: At least 5 of 7 days/Wk (IRF) Estimated Hrs Per Day: 1.5 hours per day Agreement: Yes Rehab Potential: Fair Time/GCodes Start Time: 07:40 Stop Time: 09:00 Total Time Billed (hr/min): 80 Billed Treatment Time 1 visit, ADL x5 Arcelia Deleon OT Aug 03, 2021 08:45
[2021-08-03] MEDS: PHENYTOIN 100 MG (DILANTIN) CAP PO SCH ×3 (09:48→20:31)
[2021-08-03] MEDS: FAMOTIDINE 20 MG (PEPCID) TABLET PO SCH ×2 (09:48→20:31)
[2021-08-03] MEDS: CALCIUM CARB + VIT D 600 MG (CALCARB + D) TAB PO SCH ×2 (09:48→17:30)
[2021-08-03] MEDS: FUROSEMIDE 20 MG (LASIX) TAB PO SCH (09:48)
[2021-08-03] MEDS: lisINopril 20 MG (PRINIVIL) TABLET PO SCH (09:48)
[2021-08-03] MEDS: amLODIPine 5 MG (NORVASC) TAB PO SCH ×2 (09:48→20:31)
[2021-08-03] MEDS: SENNA W/DOCUSATE (SENOKOT S) TABLET PO SCH ×2 (09:48→20:31)
[2021-08-03] MEDS: ASPIRIN E.C. 81 MG (ECOTRIN) TAB PO SCH (09:48)
[2021-08-03] MEDS: metFORMIN XR 500 MG (GLUCOPHAGE XR) TAB PO SCH ×2 (09:48→17:30)
[2021-08-03] MEDS: BRIMONIDINE 0.2% (ALPHAGAN) OPHTH SOLN 5 ML BTL OS SCH ×2 (09:49→20:34)
[2021-08-03] MEDS: [UNRECOGNIZED DRUG - REMARK] PO SCH (09:49)
--- NOTE | 2021-08-03 09:57 | PM&R Progress Note ---
Subjective HPI/CC On Admission Date Seen by Provider: Aug 03, 2021 Time Seen by Provider: 10:00 Subjective/Events-last exam 08/03/2021: Patient doing well Discharge tomorrow Flu shot given Irritable bowel syndrome issues 08/02/2021: Pt doing really well Having some loose stools Imodium will be used Checked meds and labs 08/01/2021: Pt doing well Sugars are okay Dr. Bejarano was pleased with his right ear, no additional surgeries are needed or medications 07/31/2021: Pt doing well Right ear pain and will consult Dr. Bejarano who will see him tomorrow Sodium level 133 Bowels moved on 07/29/21, laxatives given 07/30/2021: No major issues Took a shower today No diarrhea anymore Oxygen while napping and sleeping 07/29/2021: Patient doing well Loose stools continue May need Questran 93% on room air Participating in therapy 07/28/2021: Patient doing really well today Loose bowels x2 1 L of oxygen last night Once again discussed his noncompliance with CPAP Appreciate pulmonary consult yesterday 07/27/2021: Patient doing really well Pulmonary consult reviewed and I conferred with the physician who recommended restarting CPAP Bowels moved today Incontinent of bowel and bladder at times but that is a chronic issue since stroke 07/26/2021: No major issues Declines wearing CPAP Has some PTSD noted during conversation Incontinent of bowel and bladder at times We will discontinue the Hep-Lock Trulicity will be brought in by his today Finishing up with Decadron Review of Systems General: Fatigue, Malaise Objective Exam Vital Signs Vital Signs Date Time Temp Pulse Resp B/P (MAP) Pulse Ox O2 Delivery O2 Flow Rate FiO2 08/03/21 20:55 Room Air 08/03/21 20:13 36.6 85 20 149/68 (95) 94 08/02/21 20:34 2.00 Capillary Refill : General Appearance: No Apparent Distress, WD/WN, Chronically ill, Obese HEENT: PERRL/EOMI, Normal ENT Inspection, Pharynx Normal Neck: Full Range of Motion, Normal Inspection, Non Tender, Supple, Carotid Bruit Respiratory: Chest Non Tender, Normal Breath Sounds, No Accessory Muscle Use, No Respiratory Distress, Decreased Breath Sounds Cardiovascular: Regular Rate, Rhythm, No Edema, No Gallop, No JVD, No Murmur, Normal Peripheral Pulses Gastrointestinal: Normal Bowel Sounds, No Organomegaly, No Pulsatile Mass, Non Tender, Soft Back: Normal Inspection, No CVA Tenderness, No Vertebral Tenderness Extremity: Normal Capillary Refill, Normal Inspection, Normal Range of Motion, Non Tender, No Calf Tenderness, No Pedal Edema Neurologic/Psychiatric: Alert, Oriented x3, social insurance specialist II-XII Norm as Tested, Depr essed Affect, Motor Weakness (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 FIM Transfers Therapy Code Descriptions/Definitions Functional [place] Measure: 0=Not Assessed/NA 4=Minimal Assistance 1=Total Assistance 5=Supervision or Setup 2=Maximal Assistance 6=Modified [place] 3=Moderate Assistance 7=Complete IndependenceSCALE: Activities may be completed with or without assistive devices. 0-Optijgngyu-xuidjwg completes the activity by him/herself with no assistance from a helper. 5-Set-up or Clean-up Assistance-helper sets up or cleans up; patient completes activity. [place] assists only prior to or following the activity. 4-Supervision or Touching Assistance-helper provides verbal cues and/or touc maninder/steadying and/or contact guard assistance as patient completes activity. Assistance may be provided throughout the activity or intermittently. 3-Partial/Moderate Assistance-helper does LESS THAN HALF the effort. [place] lifts, holds or supports trunk or limbs, but provides less than half the effort. 2-Substantial/Maximal Assistance-helper does MORE THAN HALF the effort. [place] lifts or holds trunk or limbs and provides more than half the effort. 0-Skhvzvxnd-xiahfl does ALL the effort. Patient does none of the effort to complete the activity. Or, the assistance of 2 or more helpers is required for the patient to complete the activity. If activity was not attempted, code reason: 7-Patient Refused. 9-Not Applicable-not attempted and the patient did not perform the activity before the current illness, exacerbation or injury. 10-Not Attempted due to Environmental Limitations-(lack of equipment, weather restraints, etc.). 88-Not Attempted due to Medical Conditions or Safety Concerns. Roll Left to Right (QC): 6 Sit to Lying (QC): 4 Sit to Stand (QC): 5 Chair/Dgv-gx-Pchph Xfer(QC): 4 Car Transfer (QC): 4 Gait Training Does the Patient Walk?: Yes Distance: 200' x2, 150' x2 Walk 10 feet (QC): 5 Walk 50 ft with 2 Turns(QC): 5 Walk 150 ft (QC): 5 Walking 10ft/uneven surface-QC: 4 Gait Persons Needed: 1 Gait Assistive Device: FWW Wheelchair Training Does the Pt Use a Wheelchair?: No Distance: 100' Wheel 50 ft with 2 turns (QC): 4 Wheel 150 ft (QC): 88 Stair Training Stair Training: Handrails/: 2 handrails #of Steps: 1 1 Step (curb) (QC): 4 4 Steps (QC): 88 12 Steps (QC): 88 Balance Picking up an Object (QC): 88 ADL-Treatment Eating (QC): 6 Oral Hygiene (QC): 6 Bathing Location: L Arm, R Arm, L Upper Leg, R Upper Leg, L Lower Leg (including foot), R Lower Leg (including foot), Chest, Abdomen, Buttocks, Perineal Area Shower/Bathe Self (QC): 4 (supervision) Upper Body Dressing (QC): 5 Lower Body Dressing (QC): 5 On/Off Footwear (QC): 5 Toileting Hygiene (QC): 6 Toilet Transfer (QC): 4 (supervision) Assessment/Plan Assessment and Plan Assess & Plan/Chief Complaint Assessment: Post Covid syndrome Hypoxia Obesity Diabetes Hypertension Hyperlipidemia Prior stroke with left-sided hemiparesis Right ear pain consulted Dr. Bejarano 07/31/2021 Plan: Supportive care Oxygen supplementation Aggressive therapy 07/26/2021: Continue supportive care Monitor for hypoxia 07/27/2021: Pulmonary consult appreciated Monitor incontinence Maintain aggressive therapy 07/28/2021: Monitor loose stools Oxygen at night 07/29/2021: Supportive care Monitor loose stools 07/30/2021: Continue aggressive therapy Maintain oxygen 07/31/2021: Dr. Bejarano consult right ear pain 08/01/2021: Supportive care Appreciate Dr. Bejarano 08/02/2021: Supportive care Aggressive therapy 08/03/2021: IBS treatment Bowel regimen to continue Discharge home tomorrow (1) Post-COVID syndrome (2) Hypertension (3) BPH (benign prostatic hyperplasia) (4) Diabetes (5) History of stroke HANNA GARCIA DO Aug 03, 2021 09:57
[2021-08-03] MEDS: polyethylene glycoL POWDER 17 GM (MIRALAX) PACK PO SCH ×2 (10:21→20:34)
--- NOTE | 2021-08-03 12:10 | Occupational Ther Daily Note ---
OT Current Status-Daily Note Subjective Pt with improved speech intelligibility during second session. Appearance Pt left sitting in chair, all needs within reach. ADL-Treatment Therapy Code Descriptions/Definitions Functional [place] Measure: 0=Not Assessed/NA 4=Minimal Assistance 1=Total Assistance 5=Supervision or Setup 2=Maximal Assistance 6=Modified [place] 3=Moderate Assistance 7=Complete IndependenceSCALE: Activities may be completed with or without assistive devices. 8-Brcqmpytew-xurzjcs completes the activity by him/herself with no assistance from a helper. 5-Set-up or Clean-up Assistance-helper sets up or cleans up; patient completes activity. [place] assists only prior to or following the activity. 4-Supervision or Touching Assistance-helper provides verbal cues and/or touching/steadying and/or contact guard assistance as patient completes activity. Assistance may be provided throughout the activity or intermittently. 3-Partial/Moderate Assistance-helper does LESS THAN HALF the effort. [place] lifts, holds or supports trunk or limbs, but provides less than half the effort. 2-Substantial/Maximal Assistance-helper does MORE THAN HALF the effort. [place] lifts or holds trunk or limbs and provides more than half the effort. 1-Mnwnqxmgd-mbrlar does ALL the effort. Patient does none of the effort to complete the activity. Or, the assistance of 2 or more helpers is required for the patient to complete the activity. If activity was not attempted, code reason: 7-Patient Refused. 9-Not Applicable-not attempted and the patient did not perform the activity before the current illness, exacerbation or injury. 10-Not Attempted due to Environmental Limitations-(lack of equipment, weather restraints, etc.). 88-Not Attempted due to Medical Conditions or Safety Concerns. Other Treatment Ot provided pt with home exercise program with therabanjerome and discussed/demonstrated each exercise. Pt able to demonstrate each movement correctly post demonstration. 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 2=Patient will verbalize/demonstrate understanding of assistive devices/modifications for ADL. 3=Patient will improve strength/tolerance for activity to enable patient to perform ADL's. OT Education/Plan Problem List/Assessment Assessment: Decreased Activ Tolerance, Decreased Safety Aware, Decreased UE Strength, Impaired Coordination, Impaired Funct Balance, Impaired Self-Care Skills Discharge Recommendations Plan/Recommendations: Discharge/Goals Met Target Placement Home health Continued support from Treatment Plan/Plan of Care Treatment,Training & Education: Yes Patient would benefit from OT for education, treatment and training to promote independence in ADL's, mobility, safety and/or upper extremity function for ADL's. Plan of Care: ADL Retraining, Caregiver Training, Functional Mobility, Group Exercise/Act as Ind, UE Funct Exercise/Act, UE Neuromus Re-Ed/Coord, W/C Management Training Treatment Duration: Aug 11, 2021 Frequency: At least 5 of 7 days/Wk (IRF) Estimated Hrs Per Day: 1.5 hours per day Agreement: Yes Rehab Potential: Fair Time/GCodes Start Time: 11:38 Stop Time: 11:48 Total Time Billed (hr/min): 10 Billed Treatment Time 1 visit EX Arcelia Deleon OT Aug 03, 2021 12:10
--- NOTE | 2021-08-03 12:19 | Physical Therapy Daily Note ---
PT Daily Note-Current Subjective Pt sitting in recliner upon arrival. Pt agrees to PT for QC scoring for d/c tomorrow (08/04). Pain Location: No Pain Reported Mental Status Patient Orientation: Person, Place, Time, Situation Transfers SCALE: Activities may be completed with or without assistive devices. 5-Zshxpusaij-zujisae completes the activity by him/herself with no assistance from a helper. 5-Set-up or Clean-up Assistance-helper sets up or cleans up; patient completes activity. [place] assists only prior to or following the activity. 4-Supervision or Touching Assistance-helper provides verbal cues and/or touching/steadying and/or contact guard assistance as patient completes activity. Assistance may be provided throughout the activity or intermittently. 3-Partial/Moderate Assistance-helper does LESS THAN HALF the effort. [place] lifts, holds or supports trunk or limbs, but provides less than half the effort. 2-Substantial/Maximal Assistance-helper does MORE THAN HALF the effort. [place] lifts or holds trunk or limbs and provides more than half the effort. 2-Hnfqptyzq-uzundg does ALL the effort. Patient does none of the effort to complete the activity. Or, the assistance of 2 or more helpers is required for the patient to complete the activity. If activity was not attempted, code reason: 7-Patient Refused. 9-Not Applicable-not attempted and the patient did not perform the activity before the current illness, exacerbation or injury. 10-Not Attempted due to Environmental Limitations-(lack of equipment, weather restraints, etc.). 88-Not Attempted due to Medical Conditions or Safety Concerns. Roll Left & Right (QC): 6 Sit to Lying (QC): 6 Lying to Sitting/Side of Bed(Q: 6 Sit to Stand (QC): 6 Chair/Xyc-wt-Xlmci Xfer(QC): 6 Toilet Transfer (QC): 6 Car Transfer (QC): 6 Pt uses bed rails but will have rails at home. Pt given instruction for proper log roll for improved Supine to EOB. Weight Bearing Full Weight Bearing Full Weight Bearing Gait Training Does the Patient Walk?: Yes Distance: 150' Walk 10 feet (QC): 6 Walk 50 ft with 2 Turns(QC): 6 Walk 150 ft (QC): 6 Walking 10ft/uneven surface-QC: 6 Gait Persons Needed: 0 Gait Assistive Device: FWW Pt given VC for WBOS to prevent scissoring eleonora. when turning. Wheelchair Training Does the Pt Use a Wheelchair?: No Stair Training Stair Training: Handrails/: 2 handrails #of Steps: 12 1 Step (curb) (QC): 5 4 Steps (QC): 5 12 Steps (QC): 5 Stairs: Pattern: Step to VC for sequencing for safety. Balance Picking up an Object (QC): 5 Exercises Seated Therapy Exercises: Ankle pumps, Sit to stand, Long arc quads, Hip flexion, Hip abd/add, Glut set Seated Reps: 15 Treatments [id number]: TF to standing and uses BR. Pt amb. in hallway, completing some QC scoring items before having to return to room to use BR again. Pt rests in recliner at end of tx. All needs met, call light in hand. [id number]: TF to standing and uses BR. Pt amb in hallway, finishing QC scoring items not finished in morning tx. Pt returns to room to use BR again. Pt has call light and Nurse advised that pt is toileting. All needs met. Assessment Current Status: Good Progress Pt needs VC at times for sequencing. PT Short Term Goals Short Term Goals Time Frame: Aug 01, 2021 Roll Left & Right: 6 Sit to lyin Lying to sitting on side of be: 5 Sit to stand: 4 Chair/ssd-ie-qsufe transfer: 4 Walk 10 feet: 4 Walk 50 feet with two turns: 4 Walk 150 feet: 4 PT National Sales Representative Goals Fdc Goals PT Fdc Goals Time Frame: Aug 15, 2021 Roll Left & Right (QC): 6 Sit to Lying (QC): 6 Lying-Sitting on Side/Bed(QC): 6 Sit to Stand (QC): 5 Chair/Jie-ll-Qjofw Xfer(QC): 5 Toilet Transfer (QC): 5 Car Transfer (QC): 5 Does the Patient Walk: Yes Walk 10 feet (QC): 5 Walk 50ft with 2 Turns (QC): 5 Walk 150 ft (QC): 5 Walking 10ft on Uneven Surface: 4 1 Step (curb) (QC): 4 4 Steps (QC): 4 12 Steps (QC): 88 Picking up an Object (QC): 4 Wheel 50 feet with 2 turns (QC: 9 Wheel 150 feet: 9 PT Plan Problem List Problem List: Activity Tolerance Treatment/Plan Treatment Plan: Continue Plan of Care Treatment Plan: Bed Mobility, Education, Functional Activity Adriana, Functional Strength, Group Therapy, Gait, Safety, Therapeutic Exercise, Transfers Treatment Duration: Aug 15, 2021 Frequency: At least 5 of 7 days/Wk (IRF) Estimated Hrs Per Day: 1.5 hours per day Patient and/or Family Agrees t: Yes Safety Risks/Education Patient Education: Steps, Correct Positioning, Safety Issues Teaching Recipient: Patient Teaching Methods: Discussion Response to Teaching: Verbalize Understanding Time/GCodes Time In: 1000 Time Out: 1100 Total Billed Treatment Time: 60 Total Billed Treatment [id number]: 1, FA x2 (30m), GT (15m) & EX (15m) [id number]: 1, GT (15m) & FA (15m) MALIA VERGARA INTAKE WORKER Aug 03, 2021 12:19
[2021-08-03] MEDS: ENOXAPARIN 40 MG/0.4 ML (LOVENOX) SYR SC SCH (15:49)
[2021-08-03 20:13] VITALS: BP 149/68
[2021-08-03] MEDS: TAMSULOSIN 0.4 MG (FLOMAX) CAP PO SCH (20:31)
[2021-08-03] MEDS: LACTOBACILLUS ACIDOPHILUS (PROBIOTIC) CAPSULE PO SCH (20:31)
[2021-08-03] MEDS: MELATONIN 3 MG TABLET PO SCH (20:31)
[2021-08-03] MEDS: PHENobarbital 64.8 MG (1 GRAIN) TAb PO SCH (20:32)
[2021-08-03] MEDS: LATANOPROST 0.005% (XALATAN) OPHTH SOLN 2.5 ML OU SCH (20:34)
[2021-08-03] MEDS ORDERED: FURO40TA4 PO (20:34)
[2021-08-03] MEDS ORDERED: LISI40TA9 PO (20:34)
[2021-08-04] MEDS: inSUlin ASPART (NovoLOG) 1 UNIT/0.01 ML (CHARGE PER UNIT) SC SCH ×2 (05:45→11:00)
[2021-08-04] MEDS: LEVOTHYROXINE 100 MCG (LEVOTHROID) TAB PO SCH (05:45)
[2021-08-04] MEDS: lisINopril 20 MG (PRINIVIL) TABLET PO SCH (07:33)
[2021-08-04] MEDS: FUROSEMIDE 20 MG (LASIX) TAB PO SCH (07:33)
[2021-08-04] MEDS: ASPIRIN E.C. 81 MG (ECOTRIN) TAB PO SCH (07:33)
[2021-08-04] MEDS: CALCIUM CARB + VIT D 600 MG (CALCARB + D) TAB PO SCH (07:34)
[2021-08-04] MEDS: metFORMIN XR 500 MG (GLUCOPHAGE XR) TAB PO SCH (07:35)
[2021-08-04] MEDS: FAMOTIDINE 20 MG (PEPCID) TABLET PO SCH (07:35)
[2021-08-04] MEDS: amLODIPine 5 MG (NORVASC) TAB PO SCH (07:35)
[2021-08-04] MEDS: SENNA W/DOCUSATE (SENOKOT S) TABLET PO SCH (07:35)
[2021-08-04] MEDS: PHENYTOIN 100 MG (DILANTIN) CAP PO SCH ×2 (07:35→13:06)
[2021-08-04] MEDS: [UNRECOGNIZED DRUG - REMARK] PO SCH (07:36)
[2021-08-04] MEDS: BRIMONIDINE 0.2% (ALPHAGAN) OPHTH SOLN 5 ML BTL OS SCH (07:38)
[2021-08-04 07:48] VITALS: BP 143/65
--- NOTE | 2021-08-04 08:15 | PM&R Progress Note ---
Subjective HPI/CC On Admission Date Seen by Provider: Aug 04, 2021 Time Seen by Provider: 05:45 Subjective/Events-last exam 08/04/2021: Discharge planned 08/03/2021: Patient doing well Discharge tomorrow Flu shot given Irritable bowel syndrome issues 08/02/2021: Pt doing really well Having some loose stools Imodium will be used Checked meds and labs 08/01/2021: Pt doing well Sugars are okay Dr. Bejarano was pleased with his right ear, no additional surgeries are needed or medications 07/31/2021: Pt doing well Right ear pain and will consult Dr. Bejarano who will see him tomorrow Sodium level 133 Bowels moved on 07/29/21, laxatives given 07/30/2021: No major issues Took a shower today No diarrhea anymore Oxygen while napping and sleeping 07/29/2021: Patient doing well Loose stools continue May need Questran 93% on room air Participating in therapy 07/28/2021: Patient doing really well today Loose bowels x2 1 L of oxygen last night Once again discussed his noncompliance with CPAP Appreciate pulmonary consult yesterday 07/27/2021: Patient doing really well Pulmonary consult reviewed and I conferred with the physician who recommended restarting CPAP Bowels moved today Incontinent of bowel and bladder at times but that is a chronic issue since stroke 07/26/2021: No major issues Declines wearing CPAP Has some PTSD noted during conversation Incontinent of bowel and bladder at times We will discontinue the Hep-Lock Trulicity will be brought in by his today Finishing up with Decadron Objective Exam Vital Signs Vital Signs Date Time Temp Pulse Resp B/P (MAP) Pulse Ox O2 Delivery O2 Flow Rate FiO2 08/04/21 09:00 Room Air 08/04/21 08:55 36.2 08/04/21 07:48 95 14 143/65 (91) 96 08/02/21 20:34 2.00 Capillary Refill : General Appearance: No Apparent Distress, WD/WN, Chronically ill, Obese HEENT: PERRL/EOMI, Normal ENT Inspection, Pharynx Normal Neck: Full Range of Motion, Normal Inspection, Non Tender, Supple, Carotid Bruit Respiratory: Chest Non Tender, Normal Breath Sounds, No Accessory Muscle Use, No Respiratory Distress, Decreased Breath Sounds Cardiovascular: Regular Rate, Rhythm, No Edema, No Gallop, No JVD, No Murmur, Normal Peripheral Pulses Gastrointestinal: Normal Bowel Sounds, No Organomegaly, No Pulsatile Mass, Non Tender, Soft Back: Normal Inspection, No CVA Tenderness, No Vertebral Tenderness Extremity: Normal Capillary Refill, Normal Inspection, Normal Range of Motion, Non Tender, No Calf Tenderness, No Pedal Edema Neurologic/Psychiatric: Alert, Oriented x3, steel inspector II-XII Norm as 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 FIM Transfers Therapy Code Descriptions/Definitions Functional [place] Measure: 0=Not Assessed/NA 4=Minimal Assistance 1=Total Assistance 5=Supervision or Setup 2=Maximal Assistance 6=Modified [place] 3=Moderate Assistance 7=Complete IndependenceSCALE: Activities may be completed with or without assistive devices. 6-Hgtbhdzdwc-qxdaaxw completes the activity by him/herself with no assistance from a helper. 5-Set-up or Clean-up Assistance-helper sets up or cleans up; patient completes activity. [place] assists only prior to or following the activity. 4-Supervision or Touching Assistance-helper provides verbal cues and/or touching/steadying and/or contact guard assistance as patient completes activity. Assistance may be provided throughout the activity or intermittently. 3-Partial/Moderate Assistance-helper does LESS THAN HALF the effort. [place] lifts, holds or supports trunk or limbs, but provides less than half the effort. 2-Substantial/Maximal Assistance-helper does MORE THAN HALF the effort. [place] lifts or holds trunk or limbs and provides more than half the effort. 4-Psqsyhflt-kaqhbf does ALL the effort. Patient does none of the effort to complete the activity. Or, the assistance of 2 or more helpers is required for the patient to complete the activity. If activity was not attempted, code reason: 7-Patient Refused. 9-Not Applicable-not attempted and the patient did not perform the activity before the current illness, exacerbation or injury. 10-Not Attempted due to Environmental Limitations-(lack of equipment, weather restraints, etc.). 88-Not Attempted due to Medical Conditions or Safety Concerns. Roll Left to Right (QC): 6 Sit to Lying (QC): 6 Sit to Stand (QC): 6 Chair/Qgq-hy-Rqajo Xfer(QC): 6 Car Transfer (QC): 6 Gait Training Does the Patient Walk?: Yes Distance: 150' Walk 10 feet (QC): 6 Walk 50 ft with 2 Turns(QC): 6 Walk 150 ft (QC): 6 Walking 10ft/uneven surface-QC: 6 Gait Persons Needed: 0 Gait Assistive Device: FWW Wheelchair Training Does the Pt Use a Wheelchair?: No Distance: 100' Wheel 50 ft with 2 turns (QC): 4 Wheel 150 ft (QC): 88 Stair Training Stair Training: Handrails/: 2 handrails #of Steps: 12 1 Step (curb) (QC): 5 4 Steps (QC): 5 12 Steps (QC): 5 Stairs: Pattern: Step to Balance Picking up an Object (QC): 5 ADL-Treatment Eating (QC): 6 Oral Hygiene (QC): 6 Bathing Location: L Arm, R Arm, L Upper Leg, R Upper Leg, L Lower Leg (including foot), R Lower Leg (including foot), Chest, Abdomen, Buttocks, Perineal Area Shower/Bathe Self (QC): 4 (supervision) Upper Body Dressing (QC): 5 Lower Body Dressing (QC): 5 On/Off Footwear (QC): 5 Toileting Hygiene (QC): 6 Toilet Transfer (QC): 4 (supervision) Assessment/Plan Assessment and Plan Assess & Plan/Chief Complaint Assessment: Post Covid syndrome Hypoxia Obesity Diabetes Hypertension Hyperlipidemia Prior stroke with left-sided hemiparesis Right ear pain consulted Dr. Bejarano 07/31/2021 Plan: Supportive care Oxygen supplementation Aggressive therapy 07/26/2021: Continue supportive care Monitor for hypoxia 07/27/2021: Pulmonary consult appreciated Monitor incontinence Maintain aggressive therapy 07/28/2021: Monitor loose stools Oxygen at night 07/29/2021: Supportive care Monitor loose stools 07/30/2021: Continue aggressive therapy Maintain oxygen 07/31/2021: Dr. Bejarano consult right ear pain 08/01/2021: Supportive care Appreciate Dr. Bejarano 08/02/2021: Supportive care Aggressive therapy 08/03/2021: IBS treatment Bowel regimen to continue Discharge home tomorrow 08/04/2021: Discharge (1) Post-COVID syndrome (2) Hypertension (3) BPH (benign prostatic hyperplasia) (4) Diabetes (5) History of stroke HANNA GARCIA DO Aug 04, 2021 08:15
--- NOTE | 2021-08-04 08:18 | Discharge Summary ---
Diagnosis/Chief Complaint Date of Admission Jul 25, 2021 at 12:50 Date of Discharge Discharge Date: Aug 04, 2021 Discharge Diagnosis Assessment: Post Covid syndrome Hypoxia Obesity Diabetes Hypertension Hyperlipidemia Prior stroke with left-sided hemiparesis Right ear pain consulted Dr. Bejarano 07/31/2021 Plan: Supportive care Oxygen supplementation Aggressive therapy 07/26/2021: Continue supportive care Monitor for hypoxia 07/27/2021: Pulmonary consult appreciated Monitor incontinence Maintain aggressive therapy 07/28/2021: Monitor loose stools Oxygen at night 07/29/2021: Supportive care Monitor loose stools 07/30/2021: Continue aggressive therapy Maintain oxygen 07/31/2021: Dr. Bejarano consult right ear pain 08/01/2021: Supportive care Appreciate Dr. Bejarano 08/02/2021: Supportive care Aggressive therapy 08/03/2021: IBS treatment Bowel regimen to continue Discharge home tomorrow Discharge Summary Discharge Physical Examination Allergies: Coded Allergies: fentanyl (Verified Allergy, Unknown, 07/25/21) fluoxetine (Verified Allergy, Unknown, 07/25/21) Vitals & I&Os Vital Signs Date Time Temp Pulse Resp B/P (MAP) Pulse Ox O2 Delivery O2 Flow Rate FiO2 08/04/21 09:00 Room Air 08/04/21 08:55 36.2 08/04/21 07:48 95 14 143/65 (91) 96 08/02/21 20:34 2.00 General Appearance: Alert, Oriented X3, Cooperative Respiratory: Clear to Auscultation Cardiovascular: Regular Rate Neuro: Normal Gait, Normal Speech, Strength at 5/5 X4 Ext Psych/Mental Status: Mental Status NL Hospital Course Was the Problem List Reviewed?: Yes Patient had a lengthy hospital course. Patient had been fully vaccinated against Covid. Patient was admitted post Covid pneumonia due to significant mai ility in need of aggressive rehab prior to returning home with . Patient had no decompensation during hospital stay. Pulmonology did see him and recommended a few things but he was not willing to restart CPAP machine. Labs remained stable vitals remained stable patient was eating and drinking bowels are consistent with irritable bowel syndrome. Patient was discharged in imp roved condition did not require oxygen. Labs (last 24 hrs) Laboratory Tests 07/25/21 15:51: Glucometer 259H 07/25/21 20:27: Glucometer 204H 07/26/21 06:05: Glucometer 188H 07/26/21 06:25: White Blood Count 7.5, Red Blood Count 3.84L, Hemoglobin 11.9L, Hematocrit 35L, Mean Corpuscular Volume 91, Mean Corpuscular Hemoglobin 31, Mean Corpuscular Hemoglobin Concent 34, Red Cell Distribution Width 11.7, Platelet Count 280, Mean Platelet Volume 9.1, Immature Granulocyte % (Auto) 6, Neutrophils (%) (Auto) 46, Lymphocytes (%) (Auto) 35, Monocytes (%) (Auto) 9, Eosinophils (%) (Auto) 3, Basophils (%) (Auto) 1, Neutrophils # (Auto) 3.5, Lymphocytes # (Auto) 2.7, Monocytes # (Auto) 0.7, Eosinophils # (Auto) 0.2, Basophils # (Auto) 0.0, Immature Granulocyte # (Auto) 0.5H, Sodium Level 136, Potassium Level 3.9, Chloride Level 96L, Carbon Dioxide Level 27, Anion Gap 13, Blood Urea Nitrogen 2 1H, Creatinine 1.10, Estimat Glomerular Filtration Rate 65, BUN/Creatinine Ratio 19, Glucose Level 200H, Calcium Level 9.3, Corrected Calcium 9.7, Total Bilirubin 0.2, Aspartate Amino Transf (AST/SGOT) 48H, Alanine Aminotransferase (ALT/SGPT) 80H, Alkaline Phosphatase 110, Total Protein 7.0, Albumin 3.5 07/26/21 11:00: Glucometer 255H 07/26/21 16:47: Glucometer 119H 07/26/21 20:38: Glucometer 175H 07/27/21 05:45: Glucometer 141H 07/27/21 11:10: Glucometer 211H 07/27/21 16:38: Glucometer 121H 07/27/21 20:49: Glucometer 162H 07/28/21 06:03: Glucometer 140H 07/28/21 11:13: Glucometer 134H 07/28/21 15:54: Glucometer 136H 07/28/21 20:31: Glucometer 140H 07/29/21 05:22: Glucometer 151H 07/29/21 11:35: Glucometer 177H 07/29/21 15:41: Glucometer 114H 07/29/21 20:18: Glucometer 130H 07/30/21 06:21: Glucometer 144H 07/30/21 10:48: Glucometer 165H 07/30/21 15:59: Glucometer 118H 07/30/21 20:36: Glucometer 138H 07/31/21 05:55: White Blood Count 6.3, Red Blood Count 3.25L, Hemoglobin 10.2L, Hematocrit 30L, Mean Corpuscular Volume 93, Mean Corpuscular Hemoglobin 31, Mean Corpuscular Hemoglobin Concent 34, Red Cell Distribution Width 12.1, Platelet Count 197, Mean Platelet Volume 8.9L, Immature Granulocyte % (Auto) 1, Neutrophils (%) (Auto) 49, Lymphocytes (%) (Auto) 37, Monocytes (%) (Auto) 10, Eosinophils (%) (Auto) 3, Basophils (%) (Auto) 0, Neutrophils # (Auto) 3.1, Lymphocytes # (Auto) 2.3, Monocytes # (Auto) 0.6, Eosinophils # (Auto) 0.2, Basophils # (Auto) 0.0, Immature Granulocyte # (Auto) 0.1, Sodium Level 133L, Potassium Level 4.3, Chloride Level 99, Carbon Dioxide Level 25, Anion Gap 9, Blood Urea Nitrogen 17, Creatinine 0.93, Estimat Glomerular Filtration Rate 79, BUN/Creatinine Ratio 18, Glucose Level 119H, Calcium Level 9.0, Corrected Calcium 9.6, Total Bilirubin 0.2, Aspartate Amino Transf (AST/SGOT) 32, Alanine Aminotransferase (ALT/SGPT) 54, Alkaline Phosphatase 87, Total Protein 6.3L, Albumin 3.3 07/31/21 06:16: Glucometer 119H 07/31/21 10:58: Glucometer 143H 07/31/21 15:51: Glucometer 89 07/31/21 20:18: Glucometer 149H 08/01/21 05:27: Glucometer 121H 08/01/21 11:29: Glucometer 141H 08/01/21 16:45: Glucometer 100 08/01/21 20:30: Glucometer 123H 08/02/21 05:37: Glucometer 118H 08/02/21 11:42: Glucometer 96 08/02/21 12:50: Urine Color YELLOW, Urine Clarity CLEAR, Urine pH 6.0, Urine Specific [place] 1.010L, Urine Protein 2+H, Urine Glucose (UA) NEGATIVE, Urine Ketones NEGATIVE, Urine Nitrite NEGATIVE, Urine Bilirubin NEGATIVE, Urine Urobilinogen 0.2, Urine Leukocyte Esterase NEGATIVE, Urine RBC (Auto) NEGATIVE, Urine RBC NONE, Urine WBC NONE, Urine Squamous Epithelial Cells 0-2, Urine Crystals NONE, Urine Bacteria NEGATIVE, Urine Casts PRESENT, Urine Hyaline Casts 0-2H, Urine Mucus NEGATIVE, Urine Culture Indicated NO 08/02/21 16:14: Glucometer 127H 08/02/21 20:48: Glucometer 109 08/03/21 05:47: Glucometer 102 08/03/21 11:07: Glucometer 119H 08/03/21 15:53: Glucometer 106 08/03/21 20:38: Glucometer 118H 08/04/21 05:44: Glucometer 128H 08/04/21 11:10: Glucometer 152H Pending Labs Laboratory Tests 07/25/21 15:51: Glucometer 259 07/25/21 20:27: Glucometer 204 07/26/21 06:05: Glucometer 188 07/26/21 06:25: White Blood Count 7.5, Red Blood Count 3.84, Hemoglobin 11.9, Hematocrit 35, Mean Corpuscular Volume 91, Mean Corpuscular Hemoglobin 31, Mean Corpuscular Hemoglobin Concent 34, Red Cell Distribution Width 11.7, Platelet Count 280, Mean Platelet Volume 9.1, Immature Granulocyte % (Auto) 6, Neutrophils (%) (Auto) 46, Lymphocytes (%) (Auto) 35, Monocytes (%) (Auto) 9, Eosinophils (%) (Auto) 3, Basophils (%) (Auto) 1, Neutrophils # (Auto) 3.5, Lymphocytes # (Auto) 2.7, Monocytes # (Auto) 0.7, Eosinophils # (Auto) 0.2, Basophils # (Auto) 0.0, Immature Granulocyte # (Auto) 0.5, Sodium Level 136, Potassium Level 3.9, Chloride Level 96, Carbon Dioxide Level 27, Anion Gap 13, Blood Urea Nitrogen 21, Creatinine 1.10, Estimat Glomerular Filtration Rate 65, BUN/Creatinine Ratio 19, Glucose Level 200, Calcium Level 9.3, Corrected Calcium 9.7, Total Bilirubin 0.2, Aspartate Amino Transf (AST/SGOT) 48, Alanine Aminotransferase (ALT/SGPT) 80, Alkaline Phosphatase 110, Total Protein 7.0, Albumin 3.5 07/26/21 11:00: Glucometer 255 07/26/21 16:47: Glucometer 119 07/26/21 20:38: Glucometer 175 07/27/21 05:45: Glucometer 141 07/27/21 11:10: Glucometer 211 07/27/21 16:38: Glucometer 121 07/27/21 20:49: Glucometer 162 07/28/21 06:03: Glucometer 140 07/28/21 11:13: Glucometer 134 07/28/21 15:54: Glucometer 136 07/28/21 20:31: Glucometer 140 07/29/21 05:22: Glucometer 151 07/29/21 11:35: Glucometer 177 07/29/21 15:41: Glucometer 114 07/29/21 20:18: Glucometer 130 07/30/21 06:21: Glucometer 144 07/30/21 10:48: Glucometer 165 07/30/21 15:59: Glucometer 118 07/30/21 20:36: Glucometer 138 07/31/21 05:55: White Blood Count 6.3, Red Blood Count 3.25, Hemoglobin 10.2, Hematocrit 30, Mean Corpuscular Volume 93, Mean Corpuscular Hemoglobin 31, Mean Corpuscular Hemoglobin Concent 34, Red Cell Distribution Width 12.1, Platelet Count 197, Mean Platelet Volume 8.9, Immature Granulocyte % (Auto) 1, Neutrophils (%) (Auto) 49, Lymphocytes (%) (Auto) 37, Monocytes (%) (Auto) 10, Eosinophils (%) (Auto) 3, Basophils (%) (Auto) 0, Neutrophils # (Auto) 3.1, Lymphocytes # (Auto) 2.3, Monocytes # (Auto) 0.6, Eosinophils # (Auto) 0.2, Basophils # (Auto) 0.0, Immature Granulocyte # (Auto) 0.1, Sodium Level 133, Potassium Level 4.3, Chloride Level 99, Carbon Dioxide Level 25, Anion Gap 9, Blood Urea Nitrogen 17, Creatinine 0.93, Estimat Glomerular Filtration Rate 79, BUN/Creatinine Ratio 18, Glucose Level 119, Calcium Level 9.0, Corrected Calcium 9.6, Total Bilirubin 0.2, Aspartate Amino Transf (AST/SGOT) 32, Alanine Aminotransferase (ALT/SGPT) 54, Alkaline Phosphatase 87, Total Protein 6.3, Albumin 3.3 07/31/21 06:16: Glucometer 119 07/31/21 10:58: Glucometer 143 07/31/21 15:51: Glucometer 89 07/31/21 20:18: Glucometer 149 08/01/21 05:27: Glucometer 121 08/01/21 11:29: Glucometer 141 08/01/21 16:45: Glucometer 100 08/01/21 20:30: Glucometer 123 08/02/21 05:37: Glucometer 118 08/02/21 11:42: Glucometer 96 08/02/21 12:50: Urine Color YELLOW, Urine Clarity CLEAR, Urine pH 6.0, Urine Specific [place] 1.010, Urine Protein 2+, Urine Glucose (UA) NEGATIVE, Urine Ketones NEGATIVE, Urine Nitrite NEGATIVE, Urine Bilirubin NEGATIVE, Urine Urobilinogen 0.2, Urine Leukocyte Esterase NEGATIVE, Urine RBC (Auto) NEGATIVE, Urine RBC NONE, Urine WBC NONE, Urine Squamous Epithelial Cells 0-2, Urine Crystals NONE, Urine Bacteria NEGATIVE, Urine Casts PRESENT, Urine Hyaline Casts 0-2, Urine Mucus NEGATIVE, Urine Culture Indicated NO 08/02/21 16:14: Glucometer 127 08/02/21 20:48: Glucometer 109 08/03/21 05:47: Glucometer 102 08/03/21 11:07: Glucometer 119 08/03/21 15:53: Glucometer 106 08/03/21 20:38: Glucometer 118 08/04/21 05:44: Glucometer 128 08/04/21 11:10: Glucometer 152 Discharge Home Medications: Active Scripts Active Lisinopril 40 Mg Tablet 20 Mg PO DAILY 30 Days Take 1/2 pill po daily Furosemide 40 Mg Tablet 20 Mg PO DAILY 30 Days Take 1/2 pill daily Reported Magnesium Oxide 420 Mg Tablet 420 Mg PO BID Multivitamin 1 Each Tablet 1 Each PO 1200 Nitroglycerin 0.4 Mg Tab.subl 0.4 Mg SL UD PRN B-12 (Cyanocobalamin (Vitamin B-12)) 500 Mcg Tablet 500 Mcg PO BID Co Q10 (Ubidecarenone) 100 Mg Capsule 100 Mg PO 1200 Famotidine 20 Mg Tablet 20 Mg PO BID Flomax (Tamsulosin HCl) 0.4 Mg Cap 0.4 Mg PO HS Synthroid (Levothyroxine Sodium) 100 Mcg Tablet 100 Mcg PO DAILY Phenytoin Sodium Extended 100 Mg Capsule 100-200 Mg PO TID TAKES 1-2 (100MG) CAPS Phenobarbital 30 Mg Tablet 60 Mg PO HS TAKES 2 (30MG) TABS Metformin HCl ER (Metformin HCl) 500 Mg Tab.er.24 1,000 Mg PO BID TAKES 2 (500MG) TABS Levetiracetam 250 Mg Tablet 250 Mg PO BID Xalatan (Latanoprost) 2.5 Ml Drops 1 Drops OU HS Acidophilus Lactobacillus (Lactobacillus Acidophilus) 1 Mg Wafer 2 Ea PO HS Trulicity (Dulaglutide) 1.5 Mg/0.5 Ml Pen.injctr 1.5 Mg SQ SATURDAY Diazepam 5 Mg Tablet 2.5 Mg PO 1400 TAKES (5MG) TABLET Calcium 500-Vit D3 600 Tablet (Calcium Carbonate/Vitamin D3) 1 Each Tablet 1 Eac h PO BID Atorvastatin Calcium 80 Mg Tablet 80 Mg PO HS Aspirin EC (Aspirin) 81 Mg Tablet.dr 81 Mg PO DAILY Amlodipine Besylate 10 Mg Tablet 5 Mg PO BID TAKES OF A 10MG Lantus (Insulin Glargine,Hum.rec.anlog) 100 Unit/1 Ml Vial 20 Unit SQ HS Alphagan P (Brimonidine Tartrate) 5 Ml Drops 1 Drop OS BID Instructions to patient/family Please see electronic discharge instructions given to patient. Diagnosis/Problems Diagnosis/Problems (1) Post-COVID syndrome (2) Hypertension (3) BPH (benign prostatic hyperplasia) (4) Diabetes (5) History of stroke HANNA GARCIA DO Aug 04, 2021 08:18
[2021-08-04] MEDS: polyethylene glycoL POWDER 17 GM (MIRALAX) PACK PO SCH (10:05)
--- NOTE | 2021-08-04 12:53 | Therapy Team Discharge Summary ---
Therapy Discharge Summary Discharge Recommendations Date of Discharge Physical Therapy Patient came to rehab with post covid debility. Upon evaluation patient performed bed mobility with independence, supine <-> sit with SBA, sit <-> stand min assist, transfers CGA, car transfer CGA, ambulates 100' with a rolling w alker with CGA (including 50' with at least 2 turns of 90 degrees and 10' over an uneven surface), can go up and down 1 step using a rolling walker with CGA, and can propel a manual WC 100' with SBA. Patient has been performing bed mobility and transfer training, balance and endurance training,functional strengthening, stair training, gait training, and education. Patient has made good progress and has met all of his rn long term care goals. Now, patient performs bed mobility and transfers with independence, car transfer independent, ambulates 150' with a rolling walker with independence (including 50'with at least 2 turns of 90 degrees and 10' over an uneven surface), can go up and down 12 steps using 2 handrails with setup, and can filler picker an object from the floor with setup. Patient is being discharged from this facility today and will be discharged from PT at this time. Occupational Therapy Decreased Activ Tolerance, Decreased Safety Aware, Decreased UE Strength, Impaired Coordination, Impaired Funct Balance, Impaired Self-Care Skills PT Slagger Goals Slagger Goals PT Care Home Goals Time Frame: Aug 15, 2021 Roll Left to Right (QC): 6 Sit to Lying (QC): 6 Lying-Sitting on Side/Bed(QC): 6 Sit to Stand (QC): 5 Chair/Orr-dz-Xnndo Xfer(QC): 5 Car Transfer (QC): 5 Does the Patient Walk: Yes Walk 10 feet (QC): 5 Walk 10ft-Uneven Surface(QC): 4 Walk 50ft with 2 Turns (QC): 5 Walk 150 ft (QC): 5 Wheel 50 feet with 2 turns (QC: 9 1 Step (curb) (QC): 4 4 Steps (QC): 4 12 Steps (QC): 88 Picking up an Object (QC): 4 OT Slagger Goals Slagger Goals Time Frame: Aug 11, 2021 Eating (FIM): 6 Eating (QC): 6 (met) Oral Hygiene (QC): 6 (met) Shower/Bathe Self (QC): 4 (met) Upper Body Dressing (QC): 4 (met) Lower Body Dressing (QC): 4 (met) On/Off Footwear (QC): 4 (met) Toileting(FIM): 6 Toileting Hygiene (QC): 4 (met) Toilet/Commode Transfer (QC): 5 1=Demonstrate adherence to instructed precautions during ADL tasks. 2=Patient will verbalize/demonstrate understanding of assistive devices/modifications for ADL. 3=Patient will improve strength/tolerance for activity to enable patient to perform ADL's. [facility] PT Aug 04, 2021 12:53
--- NOTE | 2021-08-07 14:12 | Therapy Team Discharge Summary ---
Therapy Discharge Summary Discharge Recommendations Date of Discharge Aug 04, 2021 at 13:30 Therapy D/C Recommendations: Occupational Therapy Home Care Occupational Therapy Pt arrived to ARU as direct admit from [facility] with weakness and pneumonia secondary to covid 19. On evaluation, pt was min-mod a for oral care, bathing, lower body dressing, footwear, and hygiene. While on rehab, OT focused on improving balance, UE strength, functional transfers, safety, endurance, and activity tolerance in order to improve performance and indep in adls and transfers. Pt met all of his goals and is now indep/mod i with oral care and toilet hygiene, set up for upper body dressing, lb dressing, and footwear, and supervision for bathing and toilet transfers. Pt will d/c home with continued support from family. He has discharged from this facility and will be d/c'd from OT. Decreased Activ Tolerance, Decreased Safety Aware, Decreased UE Strength, Impaired Coordination, Impaired Funct Balance, Impaired Self-Care Skills PT Rpg Developer Goals Detention Goals PT Detention Goals Time Frame: Aug 15, 2021 Roll Left to Right (QC): 6 Sit to Lying (QC): 6 Lying-Sitting on Side/Bed(QC): 6 Sit to Stand (QC): 5 Chair/Kgn-oa-Lqdrw Xfer(QC): 5 Car Transfer (QC): 5 Does the Patient Walk: Yes Walk 10 feet (QC): 5 Walk 10ft-Uneven Surface(QC): 4 Walk 50ft with 2 Turns (QC): 5 Walk 150 ft (QC): 5 Wheel 50 feet with 2 turns (QC: 9 1 Step (curb) (QC): 4 4 Steps (QC): 4 12 Steps (QC): 88 Picking up an Object (QC): 4 OT Rpg Developer Goals Detention Goals Time Frame: Aug 11, 2021 Eating (FIM): 6 Eating (QC): 6 (met) Oral Hygiene (QC): 6 (met) Shower/Bathe Self (QC): 4 (met) Upper Body Dressing (QC): 4 (met) Lower Body Dressing (QC): 4 (met) On/Off Footwear (QC): 4 (met) Toileting(FIM): 6 Toileting Hygiene (QC): 4 (met) Toilet/Commode Transfer (QC): 5 1=Demonstrate adherence to instructed precautions during ADL tasks. 2=Patient will verbalize/demonstrate understanding of assistive devices/modifications for ADL. 3=Patient will improve strength/tolerance for activity to enable patient to perform ADL's. Arcelia Deleon OT Aug 07, 2021 14:12
== END 2021-08-04 13:30 | disposition home or self-care (01) | DRG 948 ==
PROVIDERS: ADMIT Internal Medicine; ATTEND Internal Medicine
DX: R53.81 Other malaise (principal); I69.354 Hemiplegia and hemiparesis following cerebral infarction affecting left non-dominant side; U09.9 Post COVID-19 condition, unspecified; R09.02 Hypoxemia; R15.9 Full incontinence of feces; R32 Unspecified urinary incontinence; K58.0 Irritable bowel syndrome with diarrhea; H91.91 Unspecified hearing loss, right ear; G47.33 Obstructive sleep apnea (adult) (pediatric); F41.9 Anxiety disorder, unspecified; I25.10 Atherosclerotic heart disease of native coronary artery without angina pectoris; J44.9 Chronic obstructive pulmonary disease, unspecified; F32.A Depression, unspecified; E11.9 Type 2 diabetes mellitus without complications; I10 Essential (primary) hypertension; E78.5 Hyperlipidemia, unspecified; E03.9 Hypothyroidism, unspecified; I73.9 Peripheral vascular disease, unspecified; E66.9 Obesity, unspecified; F43.10 Post-traumatic stress disorder, unspecified; K21.9 Gastro-esophageal reflux disease without esophagitis; N40.0 Benign prostatic hyperplasia without lower urinary tract symptoms; G40.909 Epilepsy, unspecified, not intractable, without status epilepticus; M19.91 Primary osteoarthritis, unspecified site; Z68.36 Body mass index [BMI] 36.0-36.9, adult; Z87.891 Personal history of nicotine dependence; Z88.6 Allergy status to analgesic agent; Z88.8 Allergy status to other drugs, medicaments and biological substances; Z82.49 Family history of ischemic heart disease and other diseases of the circulatory system; Z83.3 Family history of diabetes mellitus; Z83.49 Family history of other endocrine, nutritional and metabolic diseases; Z79.84 Long term (current) use of oral hypoglycemic drugs; Z79.82 Long term (current) use of aspirin; Z79.4 Long term (current) use of insulin; Z85.828 Personal history of other malignant neoplasm of skin; Z23 Encounter for immunization
CPT/HCPCS: 36415; 71046; 80053; 81000; 82947; 85025; 94640; 94760; 94761